=== PATIENT | female | born 1965 | race Caucasian/White ===

== ENCOUNTER 2017-07-02 15:36 | Emergency (ER) | payer MEDICARE, MEDICAID ==
[2017-07-02 15:36] VITALS: BMI 22.8
[2017-07-02 16:11] VITALS: RESP 18; TEMP 97.8; O2SAT 100
[2017-07-02] MEDS ORDERED: Sodium Chloride 0.9% 1,000 ML IV STA (16:20)
--- NOTE | 2017-07-02 16:23 | ED PDOC ---
Arrival/HPI - General Chief Complaint: Abdominal Pain Time Seen by Provider: 07/02/17 15:45 Historian: Patient - History of Present Illness Narrative History of Present Illness (Text): 07/02/17 16:30 pt p/w + 3 days onset of waxing/waning right lower abd pain, at most pain is 8-9 /10; decr appetite, pt states initially the pain was diffuse and gradually became right sided; pt states no fever/chills/sweats, no sob/palpitations/cp, mild nausea, no vomiting, no urinary/bowel changes, no gross bleeding; pt denied fall/trauma/sick contact, no travel; pt denied other complaints pt is here for further eval. PCP: Dr Connors urology: pt has a hx of right kidney stent, currently removed current pain does not resemble right kidney pain Time/Duration: < week (3 days) Symptom Onset: Gradual Symptom Course: Intermittent, Worsening Quality: Tightness, Cramping Severity Level: 8, Severe Activities at Onset: Rest Context: Home Past Medical History - Provider Review Nursing Documentation Reviewed: Yes - Travel History Have you recently traveled outside [place] w/in the past 3 mons?: No - Past History Past History: No Previous - Infectious Disease Hx of Infectious Diseases: None - Cardiac Hx Cardiac Disorders: Yes Hx Hypertension: Yes Other/Comment: metal valve - Pulmonary Hx Respiratory Disorders: No - Neurological Hx Neurological Disorder: No - HEENT Hx HEENT Disorder: No - Renal Hx Renal Disorder: No - Endocrine/Metabolic Hx Endocrine Disorders: Yes Hx Diabetes Mellitus Type 2: Yes - Hematological/Oncological Hx Blood Disorders: No - Integumentary Hx Dermatological Disorder: No - Musculoskeletal/Rheumatological Hx Musculoskeletal Disorders: No - Gastrointestinal Hx Gastrointestinal Disorders: No - Genitourinary/Gynecological Hx Genitourinary Disorders: No - Psychiatric Hx Psychophysiologic Disorder: No Hx Substance Use: No - Surgical History Hx Open Heart Surgery: Yes Other/Comment: metal valve - Anesthesia Hx Anesthesia: Yes Hx Anesthesia Reactions: No Hx Malignant Hyperthermia: No Family/Social History - Physician Review Nursing Documentation Reviewed: Yes Family/Social History: No Known Family HX Smoking Status: Never Smoked Hx Alcohol Use: No Hx Substance Use: No Hx Substance Use Treatment: No Allergies/Home Meds Allergies/Adverse Reactions: Allergies No Known Allergies Allergy (Verified 07/02/17 16:01) Home Medications: Home Meds Medication Instructions Recorded Confirmed Ferrous Sulfate [Feosol] 325 mg PO BID 08/10/15 07/02/17 Furosemide [Lasix] 40 mg PO DAILY 08/10/15 07/02/17 Losartan Potassium [Losartan 100 mg PO DAILY 08/10/15 07/02/17 Potassium] Metoprolol Succinate [Toprol XL] 50 mg PO BID 08/10/15 07/02/17 Multivit,Iron,Min 5/Folic Acid 1 tab PO DAILY 08/10/15 07/02/17 [Strovite Forte Caplet] Potassium Chloride [K-Dur 20 mEq 20 meq PO DAILY 08/10/15 07/02/17 ER Tab] Simvastatin [Zocor] 80 mg PO DAILY 08/10/15 07/02/17 Warfarin [Coumadin] 3 mg PO DAILY 08/10/15 07/02/17 Albuterol HFA [Ventolin HFA 90 2 puff IH PRN PRN 07/02/17 07/02/17 mcg/actuation (8 g)] Omeprazole [Omeprazole] 40 mg PO DAILY 07/02/17 07/02/17 Topiramate [Topamax] 50 mg PO PRN PRN 07/02/17 07/02/17 metFORMIN ER [glucoPHAGE XR] 500 mg PO BID 07/02/17 07/02/17 Review of Systems - Review of Systems Constitutional: Fatigue Eyes: Normal ENT: Normal Respiratory: Normal Cardiovascular: Normal Gastrointestinal: Abdominal Pain, Nausea. absent: Constipation, Diarrhea, Vomiting Genitourinary Female: Normal Musculoskeletal: Normal Skin: Normal Neurological: Normal Endocrine: Normal Hemo/Lymphatic: Normal Psychiatric: Normal Physical Exam Vital Signs Reviewed: Yes Vital Signs Temp Pulse Resp BP Pulse Ox 07/02/17 16:08 97.8 F 71 18 131/65 100 Temperature: Afebrile Blood Pressure: Normal Pulse: Regular Respiratory Rate: Normal Appearance: Positive for: Well-Appearing, Other (uncomfortable, alert/awake, GCS = 15, oriented x 3, cooperative, mild distress due to pain, follows command well) Pain Distress: Mild Mental Status: Positive for: Alert and Oriented X 3 - Systems Exam Head: Present: Atraumatic, Normocephalic Pupils: Present: PERRL, Other (no nystagmus, no photophobia, sclera anicteric) Extroacular Muscles: Present: EOMI Conjunctiva: Present: Normal Ears: Present: Normal Mouth: Present: Moist Mucous Membranes, Normal Teeth Pharnyx: Present: Normal Nose (External): Present: Atraumatic Nose (Internal): Present: Normal Inspection Neck: Present: Normal Range of Motion, Trachea Midline. No: MIDLINE TENDERNESS Respiratory/Chest: Present: Clear to Auscultation, Good Air Exchange Cardiovascular: Present: Regular Rate and Rhythm, Normal S1, S2. No: Murmurs Abdomen: Present: Tenderness, Normal Bowel Sounds, Other (well nourished female , + right lower abd tenderness/+mcburney's point tenderness, no mackey's sign, no masses/rebound/guarding/rigidity; no psoas/obturator sign) Rectal: Present: Occult Blood Back: Present: Normal Inspection. No: CVA Tenderness, Midline Tenderness Upper Extremity: Present: Normal Inspection, Normal ROM, NORMAL PULSES, Neurovascularly Intact, Capillary Refill < 2s Lower Extremity: Present: Normal Inspection, NORMAL PULSES, Neurovascularly Intact Neurological: Present: GCS=15, CN II-XII Intact, Speech Normal Skin: Present: Warm, Normal Color Psychiatric: Present: Alert, Oriented x 3 Medical Decision Making ED Course and Treatment: 07/02/17 16:21 Impression: right abd pain i have consider all the differential diagnosis regarding pt's chief medical complaints/clinical findings, including but are not limited to: right abd pain, r/o appy, ? pna, ? 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 pt will be discharged home 07/02/17 21:24 Re-evaluation Time: 21:20 Reassessment Condition: Improved - Lab Interpretations Lab Results: 07/02/17 16:30 07/02/17 16:30 Lab Results 07/02/17 17:20: Urine Color Yellow, Urine Appearance Clear, Urine pH 7.0, Ur Specific [place] 1.010, Urine Protein Negative, Urine Glucose (UA) Negative, Urine Ketones Negative, Urine Blood Negative, Urine Nitrate Negative, Urine Bilirubin Negative, Urine Urobilinogen 0.2, Ur Leukocyte Esterase Negative 07/02/17 16:30: Sodium 142, Potassium 3.2 L, Chloride 105, Carbon Dioxide 26, Anion Gap 15, BUN 24 H, Creatinine 1.7 H, Est GFR ( Amer) 38, Est GFR ( Non-Af Amer) 31, Random Glucose 137 H, Calcium 9.5, Total Bilirubin 0.3, AST 28 , ALT 37, Alkaline Phosphatase 50, Total Protein 7.2, Albumin 4.0, Globulin 3.1 , Albumin/Globulin Ratio 1.3, Lipase 296 07/02/17 16:30: PT 17.0 H, INR 1.48 H, APTT 75.9 H 07/02/17 16:30: WBC 5.5, RBC 3.91, Hgb 9.9 L, Hct 31.6 L, MCV 80.8, MCH 25.3, MCHC 31.3, RDW 14.6 H, Plt Count 176, MPV 10.7, Gran % 61.3, Lymph % (Auto) 30.6 , [place] % (Auto) 5.7, Eos % (Auto) 2.2, Baso % (Auto) 0.2, Gran # 3.34, Lymph # ( Auto) 1.7, [place] # (Auto) 0.3, Eos # (Auto) 0.1, Baso # (Auto) 0.01 I have reviewed the lab results: Yes Interpretation: Abnormal lab values (mildly elevated CREAT) - RAD Interpretation Narrative RAD Interpretations (Text): 07/02/17 19:15 PROCEDURE: CT Abdomen and Pelvis without Oral or IV contrast. HISTORY: right lower abd pain x 3 days; hx of valve surg COMPARISON: Renal ultrasound performed 06/19/17 TECHNIQUE: Contiguous axial images of the abdomen and pelvis. No oral or IV contrast administered. Coronal and Sagittal reformats generated and reviewed. Radiation dose: Total exam DLP = 1060.24 mGy-cm. This CT exam was performed using one or more of the following dose reduction techniques: Automated exposure control, adjustment of the mA and/or kV according to patient size, and/or use of iterative reconstruction technique. FINDINGS: There is limited evaluation of the solid organs without the administration of IV contrast. LOWER THORAX: Prominent bilateral patchy ground-glass and airspace opacities at the lung bases ; recommend CT of the chest for further evaluation. No visible pleural effusion or pneumothorax. LIVER: Unremarkable unenhanced appearance. GALLBLADDER AND BILE DUCTS: Unremarkable unenhanced appearance. PANCREAS: Unremarkable unenhanced appearance. SPLEEN: 5 mm nonspecific hyperdensity at the inferior right spleen. ADRENALS: Unremarkable unenhanced appearance. KIDNEYS AND URETERS: No hydronephrosis or obstructing renal calculus. BLADDER: The urinary bladder appears unremarkable. REPRODUCTIVE: Uterus is present. Right adnexal soft tissue measuring approximately 4.9 x 5.4 cm may reflect abnormal enlarged right ovary; recommend pelvic ultrasound for further evaluation. APPENDIX: The appendix appears within normal limits of caliber. No secondary signs of acute appendicitis. BOWEL: The stomach is nondistended. Lack of oral contrast limits evaluation for bowel pathology. The bowel loops appear within normal limits of caliber without evidence of intestinal obstruction. PERITONEUM: No significant free fluid. No definite free air. LYMPH NODES: No bulky lymphadenopathy identified. VASCULATURE: No aortic aneurysm. BONES: No acute osseous abnormality is detected. OTHER FINDINGS: None. IMPRESSION: Right adnexal soft tissue measuring approximately 4.9 x 5.4 cm may reflect abnormal enlarged right ovary; recommend pelvic ultrasound for further evaluation. 5 mm nonspecific hyperdensity at the inferior right spleen. Prominent bilateral patchy ground-glass and airspace opacities at the lung bases ; recommend CT of the chest for further evaluation. 07/02/17 21:20 FINDINGS: Uterus: Uterus is anteflexed. Uterus measures approximately 7.5 x 3.7 x 4.5 cm. There is a nabothian cyst in the cervix. The endometrial stripe measures approximate 18 mm in width. Right ovary: Right ovary measures approximately 3.9 x 3.2 x 3.8 cm.There is expected blood flow on Doppler imaging Left ovary: Left ovary measures approximately 3 x 2.8 x 2.3 cm. There is expected blood flow on Doppler imaging Free fluid: There is no free fluid. Bladder: Bladder is almost completely empty. 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 - Medication Orders Current Medication Orders: Sodium Chloride (Sodium Chloride 0.9%) 1,000 mls @ 100 mls/hr IV .Q10H STA Stop: 07/03/17 02:19 Last Admin: 07/02/17 16:39 Dose: 100 mls/hr eMAR Start Stop Document 07/02/17 16:39 GMD (Rec: 07/02/17 16:40 GMD [id number]) Intravenous Solution Start Date 07/02/17 Start Time 16:39 Discontinued Medications Famotidine (Pepcid) 20 mg IVP STAT STA Stop: 07/02/17 16:21 Last Admin: 07/02/17 16:39 Dose: 20 mg IVP Administration Document 07/02/17 16:39 GMD (Rec: 07/02/17 16:39 GMD [id number]) Charges for Administration # of IVP Administrations 1 Morphine Sulfate (Morphine) 4 mg IVP STAT STA Stop: 07/02/17 16:21 Last Admin: 07/02/17 16:44 Dose: Not Given Non-Admin Reason: Patient Refused Morphine Sulfate (Morphine) 4 mg IVP STAT STA Stop: 07/02/17 17:00 Last Admin: 07/02/17 17:01 Dose: Not Given Non-Admin Reason: Patient Refused Potassium Chloride (K-Dur 20 Meq Er Tab) 20 meq PO STAT STA Stop: 07/02/17 20:11 Disposition/Present on Arrival - Present on Arrival Any Indicators Present on Arrival: No History of DVT/PE: No History of Uncontrolled Diabetes: No Urinary Catheter: No History of Decub. Ulcer: No History Surgical Site Infection Following: None - Disposition Have Diagnosis and Disposition been Completed?: Yes Diagnosis: Right sided abdominal pain, Ovarian cyst Disposition: HOME/ ROUTINE Disposition Time: 21:19 Patient Plan: Discharge Condition: STABLE Discharge Instructions (ExitCare): Ovarian Cysts, Acute Pelvic Pain (DC) Print Language: UGANDAN Additional Instructions: Make sure to see your doctor in 1-2 days DRINK PLENTY OF FLUIDS take your medications as prescribed RETURN TO ED IF worse pain, cant breath, persistent vomiting, high fever >101- 102 for hours, altered behavior, unable to urinate, heavy/persistent bleeding, passing out, chest pain, or other medical emergencies Prescriptions: Ondansetron ODT [Zofran ODT] 4 mg PO TID PRN #10 odt PRN Reason: Nausea/Vomiting traMADol [Ultram] 50 mg PO TID PRN #10 tab PRN Reason: Pain, Moderate (4-7) Referrals: Link Connors MD [Primary Care Provider] - Follow up with primary Marie Corona MD [Staff Provider] - Follow up with primary Forms: [employer] ([place]ian)
[2017-07-02] MEDS: Morphine 4 mg/ml ISec IVP STA ×2 (16:39→16:44)
[2017-07-02 16:56] LABS: ALB/GLOB RATIO 1.3 (1.1-1.8); CALCIUM 9.5 mg/dL (8.4-10.5)
[2017-07-02 16:57] LABS: BASO # 0.01 K/mm3 (0.0-2.0); BASO % 0.2 % (0.0-3.0); EOS # 0.1 (0.0-0.7); EOS % 2.2 % (1.5-5.0); GRAN # 3.34 (1.4-6.5); GRAN % 61.3 % (50.0-68.0); HEMOGLOBIN 9.9 g/dL (12.0-16.0); LYMPH # 1.7 (1.2-3.4); LYMPH % 30.6 % (22.0-35.0); MEAN CELL VOLUME 80.8 fl (80.0-105.0); MEAN CORPUSCULAR HEMOGLOBIN 25.3 pg (25.0-35.0); MEAN CORPUSCULAR HGB CONC 31.3 g/dl (31.0-37.0); MEAN PLATELET VOLUME 10.7 fl (7.0-11.0); MONO # 0.3 (0.1-0.6); MONO % 5.7 % (1.0-6.0); RBC 3.91 10^6/uL (3.5-6.1); RED CELL DISTRIBUTION WIDTH 14.6 % (11.5-14.5); WHITE BLOOD COUNT 5.5 10^3/ul (4.5-11.0)
[2017-07-02] MEDS ORDERED: Morphine 4 mg/ml ISec IVP STA (16:59)
[2017-07-02 17:04] LABS: INR 1.48 (0.93-1.08); PARTIAL THROMBOPLASTIN TIME 75.9 Seconds (25.1-36.5)
[2017-07-02 17:38] LABS: URINE BILIRUBIN NEGATIVE (NEGATIVE); URINE BLOOD NEGATIVE (NEGATIVE); URINE GLUCOSE (UA) NEGATIVE (NEGATIVE); URINE LEUKOCYTE ESTERASE NEGATIVE Leu/uL (NEGATIVE); URINE NITRATE NEGATIVE (NEGATIVE); URINE PROTEIN NEGATIVE mg/dL (<30 mg/dL); URINE UROBILINOGEN 0.2 E.U./dL (<1 E.U./dL)
[2017-07-02 17:50] LABS: URINE COLOR YELLOW (YELLOW)
[2017-07-02 17:51] LABS: URINE APPEARANCE CLEAR (CLEAR)
--- NOTE | 2017-07-02 18:45 | CT ---
PROCEDURE: CT Abdomen and Pelvis without Oral or IV contrast. HISTORY: right lower abd pain x 3 days; hx of valve surg COMPARISON: Renal ultrasound performed 06/19/17 TECHNIQUE: Contiguous axial images of the abdomen and pelvis. No oral or IV contrast administered. Coronal and Sagittal reformats generated and reviewed. Radiation dose: Total exam DLP = 1060.24 mGy-cm. This CT exam was performed using one or more of the following dose reduction techniques: Automated exposure control, adjustment of the mA and/or kV according to patient size, and/or use of iterative reconstruction technique. FINDINGS: There is limited evaluation of the solid organs without the administration of IV contrast. LOWER THORAX: Prominent bilateral patchy ground-glass and airspace opacities at the lung bases; recommend CT of the chest for further evaluation. No visible pleural effusion or pneumothorax. LIVER: Unremarkable unenhanced appearance. GALLBLADDER AND BILE DUCTS: Unremarkable unenhanced appearance. PANCREAS: Unremarkable unenhanced appearance. SPLEEN: 5 mm nonspecific hyperdensity at the inferior right spleen. ADRENALS: Unremarkable unenhanced appearance. KIDNEYS AND URETERS: No hydronephrosis or obstructing renal calculus. BLADDER: The urinary bladder appears unremarkable. REPRODUCTIVE: Uterus is present. Right adnexal soft tissue measuring approximately 4.9 x 5.4 cm may reflect abnormal enlarged right ovary; recommend pelvic ultrasound for further evaluation. APPENDIX: The appendix appears within normal limits of caliber. No secondary signs of acute appendicitis. BOWEL: The stomach is nondistended. Lack of oral contrast limits evaluation for bowel pathology. The bowel loops appear within normal limits of caliber without evidence of intestinal obstruction. PERITONEUM: No significant free fluid. No definite free air. LYMPH NODES: No bulky lymphadenopathy identified. VASCULATURE: No aortic aneurysm. BONES: No acute osseous abnormality is detected. OTHER FINDINGS: None. IMPRESSION: Right adnexal soft tissue measuring approximately 4.9 x 5.4 cm may reflect abnormal enlarged right ovary; recommend pelvic ultrasound for further evaluation. 5 mm nonspecific hyperdensity at the inferior right spleen. Prominent bilateral patchy ground-glass and airspace opacities at the lung bases; recommend CT of the chest for further evaluation.
[2017-07-02] MEDS ORDERED: Potassium Chloride 20 mEq ER Tab PO STA (20:10)
[2017-07-02 21:42] VITALS: BP 127/78; PULSE 78
--- NOTE | 2017-07-03 08:04 | RAD ---
HISTORY: weakness COMPARISON: Chest radiographs 05/31/2017. TECHNIQUE: Chest PA and lateral FINDINGS: LUNGS: No active pulmonary disease. PLEURA: No significant pleural effusion identified. No pneumothorax apparent. CARDIOVASCULAR: Cardiac silhouette appears stable. No pulmonary derangement. Prosthetic cardiac valve again evident as well as sternotomy wires. OSSEOUS STRUCTURES: No significant abnormalities. VISUALIZED UPPER ABDOMEN: Normal. OTHER FINDINGS: None. IMPRESSION: No definite acute infiltrate, pleural effusion or pneumothorax. Cardiomediastinal silhouette appears stable.
--- NOTE | 2017-07-03 12:28 | US ---
HISTORY: abnl ct find of right ovary, r/o torsion COMPARISON: Unenhanced abdomen and pelvis CT examination 07/02/2017 TECHNIQUE: Transvaginal and transabdominal pelvic ultrasound technique was utilized in evaluating the pelvic contents. FINDINGS: UTERUS: Measures 7.5 x 3.7 x 4.5 cm. Uterus appears normal in size with mildly inhomogeneous but nonfocal myometrial echotexture appreciated. ENDOMETRIUM: Measures 18.4 mm in diameter. Endometrium is thickened and minimally inhomogeneous in appearance with normal color blood flow seen. There is no fluid collection within the endometrial cavity. CERVIX: Multiple nabothian cysts are identified with the cervix appearing otherwise unremarkable. RIGHT OVARY: Measures 3.8 x 3.1 x 3.9 cm. Sonographically, the right ovary appears unremarkable with no suspicious cyst or solid lesion related. Color Doppler blood flow appears unremarkable. LEFT OVARY: Measures 3.0 x 2.8 x 2.3 cm. No suspicious cyst or solid lesion. Normal blood flow. FREE FLUID: No significant free fluid noted. OTHER FINDINGS: None. IMPRESSION: No suspicious right adnexal finding is appreciated with the mid size of the right ovary upper limits of normal as compared to the suggested 5.4 cm lesion in the right adnexal compartment in the preceding abdomen and pelvis CT examination also performed 06/22/2017. Further clinical correlation of the right lower quadrant is recommended with follow-up CT or MRI with contrast of the pelvis a consideration, particularly if the patient's symptoms persist or worsen. Unremarkable left ovary. 18 mm endometrium, nonfocal.
== END 2017-07-02 21:42 | disposition home or self-care (01) ==
LOC: ED 15:36
DX: R10.31 Right lower quadrant pain (principal); N83.201 Unspecified ovarian cyst, right side; E11.9 Type 2 diabetes mellitus without complications; I10 Essential (primary) hypertension
CPT/HCPCS: 71046; 74176; 76830; 80053; 81003; 83690; 85025; 85610; 85730; 96374; 99285; J7040

== ENCOUNTER 2017-08-31 16:09 | Emergency (ER) | payer MEDICARE, MEDICAID ==
[2017-08-31 16:09] VITALS: BMI 22.8
[2017-08-31] MEDS ORDERED: Oxycodone/Acetaminophen 5/325 mg Tab PO STA (17:18)
--- NOTE | 2017-08-31 17:18 | ED PDOC ---
Arrival/HPI - General Chief Complaint: Finger,Hand,&Wrist Time Seen by Provider: 08/31/17 17:08 Historian: Patient - History of Present Illness Narrative History of Present Illness (Text): 08/31/17 17:10 52 y/o female, post menopausal, pmh including htn/hyperlipidemia/cabg, on coumadin, nkda, c/o rt. hand pain x 2 weeks with no fall or trauma. Pt. stated that she had discomfort on the base of the thumb for the past 2 weeks, no needle stick or laceration for the pasts 6 months. Pt. has no nausea or vomiting, no numbness or tingling, no difficulty moving the rt. hand/wrist, no other medical or psychological complaints. Past Medical History - Provider Review Nursing Documentation Reviewed: Yes - Past History Past History: No Previous - Infectious Disease Hx of Infectious Diseases: None - Cardiac Hx Cardiac Disorders: Yes Hx Hypertension: Yes Other/Comment: metal valve - Pulmonary Hx Respiratory Disorders: No - Neurological Hx Neurological Disorder: No - HEENT Hx HEENT Disorder: No - Renal Hx Renal Disorder: No - Endocrine/Metabolic Hx Endocrine Disorders: Yes Hx Diabetes Mellitus Type 2: Yes - Hematological/Oncological Hx Blood Disorders: No - Integumentary Hx Dermatological Disorder: No - Musculoskeletal/Rheumatological Hx Musculoskeletal Disorders: No - Gastrointestinal Hx Gastrointestinal Disorders: No - Genitourinary/Gynecological Hx Genitourinary Disorders: No - Psychiatric Hx Psychophysiologic Disorder: No Hx Substance Use: No - Surgical History Hx Open Heart Surgery: Yes Other/Comment: metal valve - Anesthesia Hx Anesthesia: Yes Hx Anesthesia Reactions: No Hx Malignant Hyperthermia: No Family/Social History - Physician Review Nursing Documentation Reviewed: Yes Family/Social History: Unknown Family HX Smoking Status: Never Smoked Hx Alcohol Use: No Hx Substance Use: No Hx Substance Use Treatment: No Allergies/Home Meds Allergies/Adverse Reactions: Allergies No Known Allergies Allergy (Verified 07/02/17 16:01) Home Medications: Home Meds Medication Instructions Recorded Confirmed Ferrous Sulfate [Feosol] 325 mg PO BID 08/10/15 07/02/17 Furosemide [Lasix] 40 mg PO DAILY 08/10/15 07/02/17 Losartan Potassium [Losartan 100 mg PO DAILY 08/10/15 07/02/17 Potassium] Metoprolol Succinate [Toprol XL] 50 mg PO BID 08/10/15 07/02/17 Multivit,Iron,Min 5/Folic Acid 1 tab PO DAILY 08/10/15 07/02/17 [Strovite Forte Caplet] Potassium Chloride [K-Dur 20 mEq 20 meq PO DAILY 08/10/15 07/02/17 ER Tab] Simvastatin [Zocor] 80 mg PO DAILY 08/10/15 07/02/17 Warfarin [Coumadin] 3 mg PO DAILY 08/10/15 07/02/17 Albuterol HFA [Ventolin HFA 90 2 puff IH PRN PRN 07/02/17 07/02/17 mcg/actuation (8 g)] Omeprazole [Omeprazole] 40 mg PO DAILY 07/02/17 07/02/17 Topiramate [Topamax] 50 mg PO PRN PRN 07/02/17 07/02/17 metFORMIN ER [glucoPHAGE XR] 500 mg PO BID 07/02/17 07/02/17 Review of Systems - Review of Systems Constitutional: absent: Fatigue, Fevers Eyes: absent: Vision Changes ENT: absent: Hearing Changes Respiratory: absent: SOB, Cough Cardiovascular: absent: Chest Pain Gastrointestinal: absent: Abdominal Pain, Nausea, Vomiting Musculoskeletal: Arthralgias, Myalgias. absent: Back Pain, Neck Pain, Joint Swelling Skin: absent: Rash, Pruritis Neurological: absent: Headache, Dizziness Psychiatric: absent: Anxiety, Depression, Suicidal Ideation Physical Exam Vital Signs Reviewed: Yes Vital Signs Temp Pulse Resp BP Pulse Ox 08/31/17 16:36 98.4 F 74 16 143/84 98 Temperature: Afebrile Blood Pressure: Normal Pulse: Regular Respiratory Rate: Normal Appearance: Positive for: Well-Appearing, Non-Toxic, Comfortable Pain Distress: Moderate Mental Status: Positive for: Alert and Oriented X 3 - Systems Exam Head: Present: Atraumatic, Normocephalic Pupils: Present: PERRL Extroacular Muscles: Present: EOMI Conjunctiva: Present: Normal Mouth: Present: Moist Mucous Membranes Neck: Present: Normal Range of Motion Respiratory/Chest: Present: Clear to Auscultation, Good Air Exchange. No: Respiratory Distress, Accessory Muscle Use Cardiovascular: Present: Regular Rate and Rhythm, Normal S1, S2. No: Murmurs Abdomen: No: Tenderness, Distention, Peritoneal Signs Back: Present: Normal Inspection Upper Extremity: Present: Normal Inspection, Other (Rt. hand/wrist: +ttp on the ventral medial region, no swelling, FROM without limitation, no scaphoid or navicular tenderness, sensation intact, motor 5/5, +radial pulse, capillary refill< 2 seconds, neurovascular intact. ). No: Cyanosis, Edema Lower Extremity: Present: Normal Inspection. No: Edema Neurological: Present: GCS=15, CN II-XII Intact, Speech Normal Skin: Present: Warm, Dry, Normal Color. No: Rashes Psychiatric: Present: Alert, Oriented x 3, Normal Insight, Normal Concentration Medical Decision Making ED Course and Treatment: 08/31/17 17:21 -Rt. hand xry -RUE Venuous doppler -Percocet -Observe and reassess 08/31/17 19:13 -Pain decreased. -RUE Venuous Doppler: as per preliminary report, no acute DVT -Rt. hand xray show no fracture or dislocation but I do see a metallic object under the base of the thumb near medial/dorsum aspect which this is the area she 's complaining about for the past 2 weeks, no history of trauma for the past 6 months on the rt. hand and no needle stick either, no cellulitis and no skin discoloration, no signs of infection. Pt. is on bactrim by her doctor, will give a copy of the xray disc to the patient to take it to the hand surgeon. -Discharge home with a copy of the xray, acetaminophen for the pain, thumb spica splint for the stabilization for the pain control, follow up with your own pmd and hand surgeon within 2 days, return to the ER for any new or worsening signs or symptoms. - RAD Interpretation Radiology Orders: 08/31/17 17:18 HAND RIGHT 3 VIEWS [RAD] Stat DUPLEX UPPER EXTRM VEIN RIGHT [US] Stat RUE Venuous Doppler: No sonographic evidence for deep venous thrombosis in the visualized segments of the right upper extremity. Rt. hand xray: HISTORY: rt. hand thumb base pain x 2 weeks COMPARISON: None. FINDINGS: BONES: No acute fracture or destructive bony lesion identified. JOINTS: Normal. No osteoarthritic changes. SOFT TISSUES: Normal. OTHER FINDINGS: None. IMPRESSION: Unremarkable right hand radiographs. Pinion Sorter: Radiologist - Medication Orders Current Medication Orders: Discontinued Medications Oxycodone/Acetaminophen (Percocet 5/325 Mg Tab) 1 tab PO STAT STA Stop: 08/31/17 17:19 - PA / SOCIAL MEDIA MARKETING SPECIALIST / Resident Statement / has reviewed & agrees with the documentation as recorded. Disposition/Present on Arrival - Present on Arrival Any Indicators Present on Arrival: No History of DVT/PE: No History of Uncontrolled Diabetes: No Urinary Catheter: No History of Decub. Ulcer: No History Surgical Site Infection Following: None - Disposition Have Diagnosis and Disposition been Completed?: Yes Diagnosis: Foreign body of right hand Disposition: HOME/ ROUTINE Disposition Time: 17:22 Patient Plan: Discharge Condition: IMPROVED Additional Instructions: -Discharge home with a copy of the xray, acetaminophen for the pain, thumb spica splint for the stabilization for the pain control, follow up with your own pmd and hand surgeon within 2 days, return to the ER for any new or worsening signs or symptoms. Referrals: Link Connors MD [Primary Care Provider] - Follow up with primary Mt Simon MD [Staff Provider] - Follow up with primary Forms: WORK NOTE
--- NOTE | 2017-08-31 19:06 | US ---
PROCEDURE: Right upper extremity venous US CLINICAL HISTORY: Arm pain and swelling Evaluate for deep venous thrombosis. PHYSICIAN(S): Kin Madrigal M.D FINDINGS: The visualized rightinternal jugular vein is small but otherwise normal and compressible. No evidence of thrombus is seen. The visualized segments of the right subclavian vein are patent with normal waveforms. No sonographic evidence of obstruction or thrombosis is seen. The visualized deep venous system of the proximal right upper extremity is sonographically normal and compressible. IMPRESSION: 1. No sonographic evidence for deep venous thrombosis in the visualized segments of the right upper extremity.
--- NOTE | 2017-08-31 19:06 | RAD ---
PROCEDURE: Right Hand Radiographs. HISTORY: rt. hand thumb base pain x 2 weeks COMPARISON: None. FINDINGS: BONES: No acute fracture or destructive bony lesion identified. JOINTS: Normal. No osteoarthritic changes. SOFT TISSUES: Normal. OTHER FINDINGS: None. IMPRESSION: Unremarkable right hand radiographs.
[2017-09-01 01:41] VITALS: BP 122/76; PULSE 84; RESP 18; TEMP 98.2; O2SAT 99
== END 2017-08-31 20:30 | disposition home or self-care (01) ==
LOC: ED 16:09
DX: S60.551A Superficial foreign body of right hand, initial encounter (principal); X58.XXXA Exposure to other specified factors, initial encounter; Y92.9 Unspecified place or not applicable

== ENCOUNTER 2017-09-27 02:53 | Inpatient (IN) | payer MEDICARE, MEDICAID ==
[2017-09-27 03:05] VITALS: BMI 39.0
[2017-09-27] MEDS ORDERED: Nitroglycerin 2% Ointment Foilpak UD TOP STA (03:17)
[2017-09-27] MEDS ORDERED: Albuterol-Ipratrop 3 mg / 0.5 (3 ml) UD IH STA (03:17)
--- NOTE | 2017-09-27 03:19 | ED PDOC ---
Arrival/HPI - General Chief Complaint: Chest Pain Time Seen by Provider: 09/27/17 03:12 Historian: Patient - History of Present Illness Narrative History of Present Illness (Text): 09/27/17 03:15 Christal Robb is a 52 year old female, whose past medical history includes hypertension, hyperlipidemia, diabetes, and valve replacement on Coumadin, who presents to the Emergency department complaining of chest pain. 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 Patient denies any fever, chills, nausea, vomiting, diarrhea, urinary symptoms, back pain, neck pain, headache, dizziness, or any other complaints. PMD: Dr. Connors Time/Duration: 1-3 hours (2 hours) Symptom Onset: Gradual Symptom Course: Unchanged Quality: Pressure Activities at Onset: Light Context: Home Past Medical History - Provider Review Nursing Documentation Reviewed: Yes - Past History Past History: No Previous - Infectious Disease Hx of Infectious Diseases: None - Reproductive Menopause: Yes - Cardiac Hx Cardiac Disorders: Yes Hx Hypertension: Yes Other/Comment: metal valve - Pulmonary Hx Respiratory Disorders: No Hx Asthma: Yes - Neurological Hx Neurological Disorder: No - HEENT Hx HEENT Disorder: No - Renal Hx Renal Disorder: No - Endocrine/Metabolic Hx Endocrine Disorders: Yes Hx Diabetes Mellitus Type 2: Yes - Hematological/Oncological Hx Blood Disorders: No - Integumentary Hx Dermatological Disorder: No - Musculoskeletal/Rheumatological Hx Musculoskeletal Disorders: No - Gastrointestinal Hx Gastrointestinal Disorders: No - Genitourinary/Gynecological Hx Genitourinary Disorders: No - Psychiatric Hx Psychophysiologic Disorder: No Hx Substance Use: No - Surgical History Hx Open Heart Surgery: Yes (aortic valve 2009) Other/Comment: metal valve - Anesthesia Hx Anesthesia: Yes Hx Anesthesia Reactions: No Hx Malignant Hyperthermia: No Family/Social History - Physician Review Nursing Documentation Reviewed: Yes Family/Social History: Unknown Family HX Smoking Status: Never Smoked Hx Alcohol Use: No Hx Substance Use: No Hx Substance Use Treatment: No Allergies/Home Meds Allergies/Adverse Reactions: Allergies No Known Allergies Allergy (Verified 09/27/17 03:05) Home Medications: Home Meds Medication Instructions Recorded Confirmed Ferrous Sulfate [Feosol] 325 mg PO BID 08/10/15 09/27/17 Furosemide [Lasix] 40 mg PO DAILY 08/10/15 09/27/17 Losartan Potassium [Losartan 50 mg PO DAILY 08/10/15 09/27/17 Potassium] Metoprolol Succinate [Toprol XL] 50 mg PO BID 08/10/15 09/27/17 Potassium Chloride [K-Dur 20 mEq 20 meq PO DAILY 08/10/15 09/27/17 ER Tab] Simvastatin [Zocor] 80 mg PO DAILY 08/10/15 09/27/17 Warfarin [Coumadin] 3 mg PO DAILY 08/10/15 09/27/17 Omeprazole [Omeprazole] 40 mg PO DAILY 07/02/17 09/27/17 metFORMIN ER [glucoPHAGE XR] 500 mg PO BID 07/02/17 09/27/17 Calcitriol 0.25 mcg PO DAILY 09/27/17 09/27/17 Donepezil [Aricept] 5 mg PO HS 09/27/17 09/27/17 sulfADIAZINE [Sulfadiazine] 500 mg PO BID 09/27/17 09/27/17 Review of Systems - Physician Review All systems were reviewed & negative as marked: Yes - Review of Systems Constitutional: Normal. absent: Fevers Eyes: Normal ENT: Normal Respiratory: SOB. absent: Cough Cardiovascular: Chest Pain Gastrointestinal: Normal. absent: Abdominal Pain, Diarrhea, Nausea, Vomiting Genitourinary Female: Normal. absent: Dysuria, Frequency, Hematuria, Urine Output Changes Musculoskeletal: Normal. absent: Back Pain, Neck Pain Skin: Normal. absent: Rash Neurological: Normal. absent: Headache, Dizziness Endocrine: Normal Hemo/Lymphatic: Normal Psychiatric: Normal Physical Exam Vital Signs Reviewed: Yes Vital Signs Temp Pulse Resp BP Pulse Ox 09/27/17 03:31 94 H 131/71 09/27/17 03:15 113/41 L 09/27/17 03:05 97.7 F 86 20 92 L Temperature: Afebrile Blood Pressure: Normal Pulse: Regular Respiratory Rate: Normal Appearance: Positive for: Well-Appearing, Non-Toxic, Comfortable Pain Distress: None Mental Status: Positive for: Alert and Oriented X 3 - Systems Exam Head: Present: Atraumatic, Normocephalic Pupils: Present: PERRL Extroacular Muscles: Present: EOMI Conjunctiva: Present: Normal Mouth: Present: Moist Mucous Membranes Neck: Present: Normal Range of Motion Respiratory/Chest: Present: Wheezes (Wheezing bilaterally). No: Respiratory Distress, Accessory Muscle Use Cardiovascular: Present: Regular Rate and Rhythm, Normal S1, S2. No: Murmurs Abdomen: No: Tenderness, Distention, Peritoneal Signs Back: Present: Normal Inspection Upper Extremity: Present: Normal Inspection. No: Cyanosis, Edema Lower Extremity: Present: Normal Inspection. No: Edema Neurological: Present: GCS=15, CN II-XII Intact, Speech Normal Skin: Present: Warm, Dry, Normal Color. No: Rashes Psychiatric: Present: Alert, Oriented x 3, Normal Insight, Normal Concentration Medical Decision Making ED Course and Treatment: 09/27/17 03:15 Impression: 52 year old female complaining of mid-sternal tightness and shortness of breath. Plan: -- EKG -- Chest X-ray -- Labs, cardiac enzymes, BNP -- Aspirin -- Duoneb -- Lopressor -- Nitroglycerin -- Reassess and disposition Progress Notes: Reviewed EKG, NSR at 94 bpm. Anterior infarct. Inferolateral ST/T wave changes. 09/27/17 04:10 Chest X-ray reviewed, consistent with CHF. 09/27/17 04:42 Case discussed with medical insurance coder utilization management rn, who is aware and agrees with plan. Case discussed with Dr. Gabriel, who is aware and agrees with plan. Pt will be admitted to Telemetry for acute coronary syndrome and CHF under the hospitalist service. - Critical Care Critical Care Minutes: 30 minutes - Lab Interpretations Lab Results: 09/27/17 03:15 Lab Results 09/27/17 03:15: WBC 8.0 D, RBC 4.31, Hgb 10.7 L, Hct 33.5 L, MCV 77.7 L D, MCH 24.8 L, MCHC 31.9, RDW 14.9 H, Plt Count 192, MPV 12.1 H 09/27/17 03:15: Lactate Dehydrogenase 971 H, Total Creatine Kinase 154, Troponin I 0.98 H*, NT-Pro-B Natriuret Pep 38869 H 09/27/17 03:15: PT 30.0 H, INR 2.58 H, APTT 50.5 H I have reviewed the lab results: Yes - RAD Interpretation Radiology Orders: 09/27/17 03:19 CHEST PORTABLE [RAD] Stat Manager Intern: ED Physician - EKG Interpretation Interpreted by ED Physician: Yes Type: 12 lead EKG - Medication Orders Current Medication Orders: Heparin Sodium/Sodium Chloride (Heparin 74305 Units/250ml 1/2 Normal Saline) 25 ,000 units in 250 mls @ 10.886 mls/hr IV .[id number] HASEEB; 12 UNITS/KG/HR PRN Reason: Protocol Discontinued Medications Albuterol/Ipratropium (Duoneb 3 Mg/0.5 Mg (3 Ml) Ud) 3 ml IH ONCE STA Stop: 09/27/17 03:18 Last Admin: 09/27/17 03:31 Dose: 3 ml Aspirin (Aspirin) 325 mg PO ONCE STA Stop: 09/27/17 03:18 Last Admin: 09/27/17 03:32 Dose: 325 mg Atorvastatin Calcium (Lipitor) 40 mg PO STAT STA Stop: 09/27/17 04:59 Furosemide (Lasix) 40 mg IVP ONCE ONE Stop: 09/27/17 04:39 Metoprolol Tartrate (Lopressor) 25 mg PO ONCE STA Stop: 09/27/17 03:18 Last Admin: 09/27/17 03:31 Dose: 25 mg MAR Pulse and Blood Pressure Document 09/27/17 03:31 IT (Rec: 09/27/17 03:31 IT [id number]) Pulse Pulse Rate (60-90 beats/min) 94 Blood Pressure Blood Pressure (100/60-150/90 mm Hg) 131/71 Nitroglycerin (Nitro-Bid 2% Oint) 1 ea TOP ONCE STA Stop: 09/27/17 03:18 Last Admin: 09/27/17 03:31 Dose: 1 ea - Scribe Statement The provider has reviewed the documentation as recorded by the Nicky Blas Provider Scribe Attestation: All medical record entries made by the Scribliza were at my direction and personally dictated by me. I have reviewed the chart and agree that the record accurately reflects my personal performance of the history, physical exam, medical decision making, and the department course for this patient. I have also personally directed, reviewed, and agree with the discharge instructions and disposition. Disposition/Present on Arrival - Present on Arrival Any Indicators Present on Arrival: No History of DVT/PE: No History of Uncontrolled Diabetes: No Urinary Catheter: No History of Decub. Ulcer: No History Surgical Site Infection Following: None - Disposition Have Diagnosis and Disposition been Completed?: Yes Diagnosis: Acute coronary syndrome, CHF (congestive heart failure) Disposition: HOSPITALIZED Disposition Time: 04:53 Patient Plan: Admission Patient Problems: Current Active Problems Problem Status Onset Acute coronary syndrome Acute CHF (congestive heart failure) Acute Condition: STABLE
[2017-09-27 03:38] LABS: HEMOGLOBIN 10.7 g/dL (12.0-16.0); MEAN CORPUSCULAR HEMOGLOBIN 24.8 pg (25.0-35.0); MEAN CORPUSCULAR HGB CONC 31.9 g/dl (31.0-37.0); MEAN PLATELET VOLUME 12.1 fl (7.0-11.0); RBC 4.31 10^6/uL (3.5-6.1); RED CELL DISTRIBUTION WIDTH 14.9 % (11.5-14.5)
[2017-09-27 03:43] LABS: MEAN CELL VOLUME 77.7 fl (80.0-105.0)
[2017-09-27 03:44] LABS: INR 2.58 (0.93-1.08); PARTIAL THROMBOPLASTIN TIME 50.5 Seconds (25.1-36.5)
[2017-09-27 04:36] LABS: TROPONIN I 0.98 ng/mL
[2017-09-27] MEDS ORDERED: Heparin25000 units/250ml 1/2NS 25,000 UNITS/250 ML BAG IV SCH (05:00)
[2017-09-27 05:55] LABS: ALB/GLOB RATIO 1.3 (1.1-1.8); ALBUMIN 4.1 g/dL (3.0-4.8); CALCIUM 9.2 mg/dL (8.4-10.5)
--- NOTE | 2017-09-27 06:07 | CP.PCM.HP ---
<Brook Wild - Last Filed: 09/27/17 06:28> History of Present Illness - History of Present Illness History of Present Illness: PGY-2 H&P for hospitalist service 52 year old female with past medical history of hypertension, hyperlipidemia, diabetes, and valve replacement on Coumadin, who presents to the Emergency department complaining of chest tighnessand sob. Patient is primarily Telugu speaking, medical device engineer was used, [id number]. Patient states that last night she had a headache and took aleve. She states that she became dizziness and fell in her bed. She denies any trauma to her head. Per patient and , she was not responding to stimuli for about 15-20 minutes. Patient states that when she woke up she vomiting once and was experiencing mid-sternal chest tightness with associated shortness of breath. Patient denies any previous episodes. She states that she has never had sob before. About 8-9 years ago patient had cardiac valve replacement surgery, she does not recall the type of valve used. Her steamer tender is Dr. Puir, she last saw about 1 month ago. Patient denies any fever, chills, nausea, diarrhea, urinary symptoms, back pain, neck pain, headache, dizziness, or any other complaints. PMH: hypertension, hyperlipidemia, diabetes psh: valve replacement on Coumadin Social history: denies smoking, alcohol use, illicit drug use family history: father- heart disease PMD: Dr. Connors Cardology: Dr. Puri manager market intelligence: Dr. Blanco Present on Admission - Present on Admission Any Indicators Present on Admission: No Review of Systems - Review of Systems All systems: reviewed and no additional remarkable complaints except Past Patient History - Infectious Disease Hx of Infectious Diseases: None - Past Social History Smoking Status: Never Smoked - CARDIAC Hx Cardiac Disorders: Yes Hx Hypertension: Yes Other/Comment: metal valve - PULMONARY Hx Respiratory Disorders: No Hx Asthma: Yes - NEUROLOGICAL Hx Neurological Disorder: No - HEENT Hx HEENT Problems: No - RENAL Hx Chronic Kidney Disease: No - ENDOCRINE/METABOLIC Hx Endocrine Disorders: Yes Hx Diabetes Mellitus Type 2: Yes - HEMATOLOGICAL/ONCOLOGICAL Hx Blood Disorders: No - INTEGUMENTARY Hx Dermatological Problems: No - MUSCULOSKELETAL/RHEUMATOLOGICAL Hx Musculoskeletal Disorders: No - GASTROINTESTINAL Hx Gastrointestinal Disorders: No - GENITOURINARY/GYNECOLOGICAL Hx Genitourinary Disorders: No - PSYCHIATRIC Hx Psychophysiologic Disorder: No Hx Substance Use: No - SURGICAL HISTORY Hx Open Heart Surgery: Yes (aortic valve 2009) Other/Comment: metal valve - ANESTHESIA Hx Anesthesia: Yes Hx Anesthesia Reactions: No Hx Malignant Hyperthermia: No Meds Allergies/Adverse Reactions: Allergies Allergy/AdvReac Type Severity Reaction Status Date / Time No Known Allergies Allergy Verified 09/27/17 03:05 Physical Exam - Constitutional Appears: No Acute Distress - Head Exam Head Exam: ATRAUMATIC, NORMAL INSPECTION, NORMOCEPHALIC - Eye Exam Eye Exam: EOMI, Normal appearance - ENT Exam ENT Exam: Mucous Membranes Moist - Respiratory Exam Respiratory Exam: Rhonchi, NORMAL BREATHING PATTERN. absent: Decreased Breath Sounds, Rales, Wheezes, Respiratory Distress - Cardiovascular Exam Cardiovascular Exam: REGULAR RHYTHM, +S1, +S2. absent: Bradycardia, Tachycardia , Diastolic murmur, Systolic Murmur - GI/Abdominal Exam GI & Abdominal Exam: Normal Bowel Sounds, Soft. absent: Diminished Bowel Sounds , Distended, Firm, Guarding, Hernia, Tenderness - Extremities Exam Extremities exam: Positive for: normal inspection. Negative for: pedal edema, tenderness - Neurological Exam Neurological exam: Alert, Oriented x3 - Psychiatric Exam Psychiatric exam: Normal Affect, Normal Mood - Skin Skin Exam: Dry, Intact, Normal Color, Warm Results - Vital Signs Recent Vital Signs: Last Vital Signs Temp 97.7 F 09/27/17 03:05 Pulse 94 H 09/27/17 03:31 Resp 20 09/27/17 03:05 BP 129/73 09/27/17 05:39 Pulse Ox 92 L 09/27/17 03:05 - Labs Result Diagrams: 09/27/17 03:15 09/27/17 05:30 Labs: Laboratory Results - last 24 hr 09/27/17 09/27/17 09/27/17 03:15 03:15 03:15 WBC 8.0 D RBC 4.31 Hgb 10.7 L Hct 33.5 L MCV 77.7 L D MCH 24.8 L MCHC 31.9 RDW 14.9 H Plt Count 192 MPV 12.1 H PT 30.0 H INR 2.58 H APTT 50.5 H Sodium Potassium Chloride Carbon Dioxide Anion Gap BUN Creatinine Est GFR ( Amer) Est GFR (Non-Af Amer) Random Glucose Calcium Total Bilirubin AST ALT Alkaline Phosphatase Lactate Dehydrogenase 971 H Total Creatine Kinase 154 Troponin I 0.98 H* NT-Pro-B Natriuret Pep 51258 H Total Protein Albumin Globulin Albumin/Globulin Ratio 09/27/17 05:30 WBC RBC Hgb Hct MCV MCH MCHC RDW Plt Count MPV PT INR APTT Sodium 141 Potassium 3.9 Chloride 99 Carbon Dioxide 27 Anion Gap 19 BUN 39 H Creatinine 1.7 H Est GFR ( Amer) 38 Est GFR (Non-Af Amer) 31 Random Glucose 143 H Calcium 9.2 Total Bilirubin 0.5 AST 45 H D ALT 45 Alkaline Phosphatase 58 Lactate Dehydrogenase Total Creatine Kinase Troponin I NT-Pro-B Natriuret Pep Total Protein 7.3 Albumin 4.1 Globulin 3.2 Albumin/Globulin Ratio 1.3 Assessment & Plan - Assessment and Plan (Free Text) Assessment: 52 year old female with past medical history of hypertension, hyperlipidemia, diabetes, and valve replacement on Coumadin, who presents with NSTEMI and elevated creatinine. Plan: NSTEMI - elevated trops and pBNP - patient given lasix in ED, as well as nitroglycerin, asa, 1 dose of atrovastatin - trend trops - Lipid panel, TSH - consider echo - heparin drip - restart home metoprolol, statin therapy - kennedy cath for strict I&O - cardio, Dr. Puri ARLEN - elevated cr and bun - hold losartan - strict I&O - consider nephrology consult with Dr. Blanco h/o HTN - BP stable currently - cont metoprolol - hold losartan due to arlen - continue to monitor h/o HLD - continue statin - lipid panel DM - hold metformin - lispro- isss- low - finger sticks achs - consider Hgba1c <Nery,Oscar Q - Last Filed: 09/27/17 07:02> Results - Vital Signs Recent Vital Signs: Last Vital Signs Temp 97.7 F 09/27/17 03:05 Pulse 76 09/27/17 06:44 Resp 18 09/27/17 06:44 BP 129/63 09/27/17 06:44 Pulse Ox 96 09/27/17 06:44 - Labs Result Diagrams: 09/27/17 03:15 09/27/17 05:30 Labs: Laboratory Results - last 24 hr 09/27/17 05:30 Sodium 141 Potassium 3.9 Chloride 99 Carbon Dioxide 27 Anion Gap 19 BUN 39 H Creatinine 1.7 H Est GFR ( Amer) 38 Est GFR (Non-Af Amer) 31 Random Glucose 143 H Calcium 9.2 Total Bilirubin 0.5 AST 45 H D ALT 45 Alkaline Phosphatase 58 Total Protein 7.3 Albumin 4.1 Globulin 3.2 Albumin/Globulin Ratio 1.3 Attending/Attestation - Attestation I have personally seen and examined this patient.: Yes I have fully participated in the care of the patient.: Yes I have reviewed all pertinent clinical information: Yes Notes (Text): 09/27/17 06:57 I agree with the above mentioned note and exam by the resident with the addition /exception of the followin52 y/o female with a PMHx Htn, mechanical valve replacement (?mitral), DM presented to the ED with the c/o midsternal chest tightness along with an episode of nausea and vomiting. Patient also stated she developed shortness of breath which was not present earlier tonight. She is found to have an NSTEMI with ST depressions in I, II, V4-6 and acute heart failure likely secondary to her NSTEMI. She is currently therapeutic in terms of anticoagulation for her mitral valve, however she was started on TAC for her NSTEMI and may need a cardiac cath, however she also has CKD stage3. Cardiology consult placed with Dr. Puri with whom the patient states she follows with as an outpatient. Patient also continued on beta blockade, atorvastatin, given IV Lasix in the ED for diuresis as well, with improvement in her shortness of breath.
[2017-09-27 07:41] LABS: HDL CHOLESTEROL 49 mg/dL (29-60)
[2017-09-27 07:54] LABS: LDL CHOLESTEROL 72 mg/dL (0-129)
--- NOTE | 2017-09-27 07:54 | RAD ---
HISTORY: chest pain COMPARISON: 07/02/2017 FINDINGS: LUNGS: There is severe vascular congestion and interstitial edema PLEURA: No significant pleural effusion identified, no pneumothorax apparent. CARDIOVASCULAR: Mild cardiomegaly OSSEOUS STRUCTURES: No significant abnormalities. VISUALIZED UPPER ABDOMEN: Normal. OTHER FINDINGS: None. IMPRESSION: Mild cardiomegaly with severe vascular congestion and interstitial edema
[2017-09-27 08:37] LABS: TROPONIN I 2.01 ng/mL
[2017-09-27] MEDS: Insulin Lispro (humaLOG) LOW Coverage SC SCH ×4 (08:59→21:22)
[2017-09-27] MEDS ORDERED: Metoprolol Succinate 50 mg XL Tab PO SCH (10:00)
--- NOTE | 2017-09-27 13:24 | CARD ---
APPROVED REPORT EKG Measurement Heart [id number] <Conclusion> Normal sinus rhythm Possible Left atrial enlargement Anterior infarct, age undetermined Marked ST abnormality, possible inferolateral subendocardial injury Abnormal ECG
--- NOTE | 2017-09-27 14:49 | CT ---
PROCEDURE: CT HEAD WITHOUT CONTRAST. HISTORY: Prolonged LOC COMPARISON: None available. TECHNIQUE: Axial computed tomography images were obtained through the head/brain without intravenous contrast. Radiation dose: Total exam DLP = 903.79 mGy-cm. This CT exam was performed using one or more of the following dose reduction techniques: Automated exposure control, adjustment of the mA and/or kV according to patient size, and/or use of iterative reconstruction technique. FINDINGS: HEMORRHAGE: No intracranial hemorrhage. BRAIN: Normal reyes-white matter differentiation and density are appreciated throughout the cerebrum and cerebellum with the brainstem appearing unremarkable as well. There is no mass effect. There is no suspicious extra-axial fluid collection and the midline brain anatomy appears diffusely unremarkable. VENTRICLES: Unremarkable. No hydrocephalus. CALVARIUM: Unremarkable. PARANASAL SINUSES: Unremarkable as visualized. No significant inflammatory changes. MASTOID AIR CELLS: Unremarkable as visualized. No inflammatory changes. OTHER FINDINGS: None. IMPRESSION: Unremarkable unenhanced CT of the Head.
--- NOTE | 2017-09-27 14:52 | RAD ---
HISTORY: CHF COMPARISON: 07/28/2017 TECHNIQUE: Chest PA and lateral FINDINGS: LUNGS: Lung volumes lower limits of normal. Central pulmonary venous congestion suggested. -less than before. PLEURA: No significant pleural effusion identified. No pneumothorax apparent. CARDIOVASCULAR: Mild cardiomegaly. Midline sternotomy. Valvular prosthesis -similar appearing OSSEOUS STRUCTURES: Thoracic spondylosis. VISUALIZED UPPER ABDOMEN: Normal. OTHER FINDINGS: None. IMPRESSION: The prior pulmonary venous congestion is less than before. Similar cardiomegaly and postop changes.
[2017-09-27 15:39] LABS: INR 3.35 (0.93-1.08); PROTHROMBIN TIME 39.1 SECONDS (9.4-12.5)
[2017-09-27 15:41] LABS: PARTIAL THROMBOPLASTIN TIME 112.6 Seconds (25.1-36.5)
[2017-09-27 16:31] LABS: TROPONIN I 3.1 ng/mL
[2017-09-27] MEDS: Metoprolol Succinate 25 mg XL Tab PO SCH (18:06)
[2017-09-27] MEDS ORDERED: Pneumococcal 23-Valent Vaccine IM ONE (18:53)
--- NOTE | 2017-09-27 19:23 | CON ---
DATE: 09/27/2017 REASON FOR CONSULTATION: Cardiac evaluation, acute coronary syndrome, history of MVR 9 years ago. BRIEF CLINICAL HISTORY: This is a 52-year-old obese female with past medical history of hypertension, hyperlipidemia, diabetes, status post AVR came to the emergency room with complaint of chest tightness, shortness of breath. She has had two episodes of chest pain, came to the emergency room. Denies any chest pain now. Also, complained of dyspnea on exertion, which had increased. Also, the patient has a baseline renal insufficiency. PAST MEDICAL HISTORY: Significant for hypertension, hyperlipidemia, diabetes, history of Aortic valve replacement, on Coumadin. SOCIAL HISTORY: Denies smoking. Denies any history of alcohol abuse. FAMILY HISTORY: Father has heart problem. CURRENT MEDICATIONS: The patient is taking at home Aricept 5 mg, p.o. calcitriol, Sudafed, metoprolol, losartan, furosemide, Coumadin, simvastatin, potassium, omeprazole, and metformin. REVIEW OF SYSTEMS: As per HPI. PHYSICAL EXAMINATION VITAL SIGNS: As follows: Temperature afebrile, heart rate 76, blood pressure . HEENT: PERRLA. Extraocular muscles intact. NECK: Supple. No carotid bruit or thyromegaly. CHEST: Clear to auscultation. HEART: S1 and S2, regular. ABDOMEN: Soft. EXTREMITIES: Clubbing and cyanosis negative. LABORATORY DATA: Blood workup as follows: WBC 8, hemoglobin 10.3, hematocrit 33.5, platelet count 192. Chemistry shows sodium 141, potassium 3.9, chloride 90, carbon dioxide 27, anion gap of 19, BUN 39, creatinine 1.7. Troponin 0.98. EKG shows normal sinus, significant ST-T changes, depression in inferolateral lead. IMPRESSION: Acute coronary syndrome, unstable angina, diabetes, hypertension, hyperlipidemia, history of valve replacement, INR therapeutic 2.58. RECOMMENDATIONS: We will give vitamin K, continue heparin, waited INR get 1.5 or below, cardiac catheterization, possible angioplasty. We will load with Plavix 300 mg and Ecotrin 325 mg followed by,plavix 75 mg po daily and aspirin 81 mg daily. Continue heparin till tomorrow at 10 :00am, Possible cardiac catheterization tomorrow afternoon, discussed with the . Though the patient is on Aricept, but no evidence of dementia. Patient's says that she takes Aricept to sleep at night. The patient is well known to me from office and mentally alert and awake and gives all the history. We will wait information from [facility] and from office to get more information of the patient from office chart. [facility] C[facility] office says pt had Mechanical AVR [phone] with Aortic Root dilatation with Shield graft on 05/19/2009. Romel Puri MD MTDRema
[2017-09-28 06:38] LABS: BASO # 0.02 K/mm3 (0.0-2.0); BASO % 0.3 % (0.0-3.0); EOS # 0.4 (0.0-0.7); EOS % 4.6 % (1.5-5.0); GRAN # 5.56 (1.4-6.5); GRAN % 73.3 % (50.0-68.0); HEMOGLOBIN 9.9 g/dL (12.0-16.0); LYMPH # 1.3 (1.2-3.4); LYMPH % 17.5 % (22.0-35.0); MEAN CELL VOLUME 78.2 fl (80.0-105.0); MEAN CORPUSCULAR HEMOGLOBIN 25.1 pg (25.0-35.0); MEAN PLATELET VOLUME 11.6 fl (7.0-11.0); MONO # 0.3 (0.1-0.6); MONO % 4.3 % (1.0-6.0); RBC 3.95 10^6/uL (3.5-6.1); RED CELL DISTRIBUTION WIDTH 14.9 % (11.5-14.5); WHITE BLOOD COUNT 7.6 10^3/ul (4.5-11.0)
[2017-09-28 07:15] LABS: ALB/GLOB RATIO 1.2 (1.1-1.8); ALBUMIN 3.7 g/dL (3.0-4.8); CALCIUM 8.6 mg/dL (8.4-10.5)
[2017-09-28] MEDS: Insulin Lispro (humaLOG) LOW Coverage SC SCH ×3 (08:12→18:00)
[2017-09-28] MEDS: Potassium Chloride 20 mEq ER Tab PO ONE ×2 (08:14→14:26)
[2017-09-28 08:17] LABS: INR 1.48 (0.93-1.08); PROTHROMBIN TIME 17.1 SECONDS (9.4-12.5)
[2017-09-28] MEDS ORDERED: Sodium Chloride 0.9% 1,000 ML IV SCH (09:00)
[2017-09-28] MEDS: Metoprolol Succinate 25 mg XL Tab PO SCH (10:45)
[2017-09-28] MEDS: Potassium Chloride 40 mEq/30 ml LIQ UD PO SCH ×2 (10:52→12:00)
[2017-09-28] MEDS ORDERED: Metoprolol Succinate 25 mg XL Tab PO SCH (11:24)
--- NOTE | 2017-09-28 11:28 | CP.PCM.PN ---
<Francisco Rodriguez - Last Filed: 09/28/17 11:25> Subjective - Date & Time of Evaluation Date of Evaluation: 09/28/17 Time of Evaluation: 11:25 - Subjective Subjective: Patient seen and examined at bedside. Complaining of increased work of breathing. Denies any chest pain, fevers, chills, diaphoresis, nausea, vomiting. Explained reasons why patient will need to be transferred to cardiac cath as patient is on aricpet and there is increased risk of heart block and arrhythmias with patient taking this medication. Family at bedside. All questions answered. Objective - Vital Signs/Intake and Output Vital Signs (last 24 hours): Temp Pulse Resp BP Pulse Ox 98.4 F 97 H 18 163/80 H 96 09/28/17 06:00 09/28/17 10:45 09/28/17 06:00 09/28/17 10:49 09/28/17 06:00 Intake and Output: 09/28/17 09/28/17 06:59 18:59 Intake Total 80 Output Total 1000 Balance -920 - Medications Medications: Current Medications Aspirin (Ecotrin) 81 mg PO DAILY [facility] Last Admin: 09/27/17 10:51 Dose: Not Given Atorvastatin Calcium (Lipitor) 40 mg PO DIN [facility] Last Admin: 09/27/17 18:03 Dose: 40 mg Calcitriol (Rocaltrol) 0.25 mcg PO DAILY [facility] Last Admin: 09/28/17 10:51 Dose: 0.25 mcg Clopidogrel Bisulfate (Plavix) 75 mg PO DAILY [facility] Last Admin: 09/28/17 10:45 Dose: 75 mg Donepezil HCl (Aricept) 5 mg PO HS [facility] Furosemide (Lasix) 40 mg IV DAILY [facility] Last Admin: 09/28/17 10:49 Dose: 40 mg Sodium Chloride (Sodium Chloride 0.9%) 1,000 mls @ 50 mls/hr IV .Q20H [facility] Stop: 09/28/17 23:59 Insulin Human Lispro (Humalog Low) 0 units SC ACHS [facility] PRN Reason: Protocol Last Admin: 09/28/17 08:12 Dose: Not Given Metoprolol Succinate (Toprol Xl) 50 mg PO BID [facility] Potassium Chloride (Potassium Chloride Oral Soln) 40 meq PO Q3H [facility] Stop: 09/28/17 11:31 Last Admin: 09/28/17 10:52 Dose: Not Given - Labs Labs: 09/28/17 05:30 09/28/17 05:30 PT 17.1 SECONDS (9.4-12.5) H 09/28/17 05:30 INR 1.48 (0.93-1.08) H 09/28/17 05:30 APTT 72.5 Seconds (25.1-36.5) H 09/28/17 05:30 - Constitutional Appears: Well - Head Exam Head Exam: ATRAUMATIC, NORMAL INSPECTION, NORMOCEPHALIC - Eye Exam Eye Exam: EOMI, Normal appearance, PERRL Pupil Exam: NORMAL ACCOMODATION, PERRL - ENT Exam ENT Exam: Mucous Membranes Moist, Normal Exam - Neck Exam Neck Exam: Full ROM, Normal Inspection. absent: Lymphadenopathy - Respiratory Exam Respiratory Exam: Rhonchi (bibasilar crackles), NORMAL BREATHING PATTERN - Cardiovascular Exam Cardiovascular Exam: REGULAR RHYTHM, +S1, +S2. absent: Murmur - GI/Abdominal Exam GI & Abdominal Exam: Soft, Normal Bowel Sounds. absent: Distended, Tenderness - Extremities Exam Extremities Exam: Full ROM, Normal Capillary Refill, Normal Inspection. absent : Joint Swelling, Pedal Edema - Back Exam Back Exam: NORMAL INSPECTION - Neurological Exam Neurological Exam: Alert, Awake, CN II-XII Intact, Normal Gait, Oriented x3 - Psychiatric Exam Psychiatric exam: Normal Affect, Normal Mood - Skin Skin Exam: Dry, Intact, Normal Color, Warm Assessment and Plan (1) NSTEMI (non-ST elevated myocardial infarction) Assessment & Plan: Cardio (Jaxson) Cardiac cath will take place at [facility] as patient is on aircept and increased risk of complications during cardiac cath with patients taking this medication ASA 81 QD Plavix 75 PO QD Metoprolol 50 PO BID Lipitor 40 PO HS Status: Acute (2) CHF (congestive heart failure) Assessment & Plan: ASA 81 QD Plavix 75 QD Lipitor 40 PO QD Lisinopril 5 PO QD Lasix 40 IV QD F/U Echo Status: Chronic (3) Aortic valve replaced Assessment & Plan: Patient takes warfarin at home D/c and started on heparin drip as patient is awaiting cardiac cath Status: Chronic (4) Prophylactic measure Assessment & Plan: heparin drip scd no GI PPX iondicated at this time Status: Acute <Romel Sigala - Last Filed: 09/29/17 13:40> Objective - Vital Signs/Intake and Output Vital Signs (last 24 hours): Temp Pulse Resp BP Pulse Ox 98 F 96 H 18 93/62 L 95 09/29/17 11:32 09/29/17 11:32 09/29/17 11:32 09/29/17 11:32 09/29/17 06:00 Intake and Output: 09/29/17 09/29/17 06:59 18:59 Intake Total 130 Output Total 250 Balance -120 - Medications Medications: Current Medications Aspirin (Ecotrin) 81 mg PO DAILY [facility] Last Admin: 09/29/17 10:16 Dose: 81 mg Atorvastatin Calcium (Lipitor) 40 mg PO DIN [facility] Last Admin: 09/28/17 18:03 Dose: 40 mg Calcitriol (Rocaltrol) 0.25 mcg PO DAILY [facility] Last Admin: 09/29/17 10:16 Dose: 0.25 mcg Clopidogrel Bisulfate (Plavix) 75 mg PO DAILY [facility] Last Admin: 09/29/17 10:15 Dose: 75 mg Donepezil HCl (Aricept) 5 mg PO HS [facility] Last Admin: 09/28/17 22:19 Dose: 5 mg Furosemide (Lasix) 40 mg IVP DAILY [facility] Heparin Sodium/Sodium Chloride (Heparin 41578 Units/250ml 1/2 Normal Saline) 25 ,000 units in 250 mls @ 10.668 mls/hr IV .[id number]; 12 UNITS/KG/HR PRN Reason: Protocol Stop: 10/01/17 04:00 Last Admin: 09/29/17 11:15 Dose: Not Given Insulin Human Lispro (Humalog Low) 0 units SC ACHS [facility] PRN Reason: Protocol Last Admin: 09/29/17 11:58 Dose: Not Given Lisinopril (Zestril) 5 mg PO DAILY [facility] Last Admin: 09/29/17 10:09 Dose: Not Given Metoprolol Succinate (Toprol Xl) 25 mg PO BID [facility] Last Admin: 09/29/17 10:08 Dose: Not Given Oxycodone/Acetaminophen (Percocet 2.5/325 Mg Tab) 1 tab PO Q6H PRN PRN Reason: Pain, Mild (1-3) - Labs Labs: 09/29/17 07:30 09/29/17 07:30 PT 17.1 SECONDS (9.4-12.5) H 09/28/17 05:30 INR 1.48 (0.93-1.08) H 09/28/17 05:30 APTT 80.7 Seconds (25.1-36.5) H 09/29/17 07:30 Attending/Attestation - Attestation I have personally seen and examined this patient.: Yes I have fully participated in the care of the patient.: Yes I have reviewed all pertinent clinical information, including history, physical exam and plan: Yes Notes (Text): 09/29/17 13:34 Medical record note made by the resident after discussion with my direction and input after the patient was personally seen and examined by me. I have reviewed the chart and agree that the record accurately reflects by personal performance of the history, physical exam, data review, and medical decision-making, in the course for the patient. I have also personally directed the plan of care. 52 year old female with past medical history of hypertension, hyperlipidemia, diabetes, and valve replacement on Coumadin, was admitted with of chest tighness and sob.She is fund to have NSEMI, maximum troponin 3.01 and CHF exacerbation.She is pain free today, on IV heparin,ASA,Plavix, statin, Metoprolol, and lisinopril.Dyspnea is improved.Patient chronic is stable 1.8, we will monitor. Case was discussed with cardiology .Patient is for transfer to [facility] on Sunday for cardiac catherization. Management plan was discussed in detail with patient and family .Education was provided. 09/29/17 13:37
--- NOTE | 2017-09-28 13:44 | PN ---
DATE: 09/28/2017 REASON FOR CONSULTATION AND FOLLOWUP: Cardiac evaluation, acute coronary artery syndrome, history of aortic valve replacement 8 to 9 years ago at [facility] and came in with unstable angina, non-ST segment myocardial infarction, acute coronary artery syndrome, on heparin, off Coumadin. SUBJECTIVE: The patient denies any chest pain. Feels still heaviness on the chest. Getting IV heparin. PHYSICAL EXAMINATION: VITAL SIGNS: As follows: Temperature afebrile, heart rate 91, blood pressure 100/53. HEENT: PERRLA, intact. NECK: Supple. No carotid bruit or thyromegaly. CHEST: Clear to auscultation. HEART: S1 and S2 regular. ABDOMEN: Soft. EXTREMITIES: Clubbing and cyanosis negative. LABORATORY DATA: Blood workup: WBC 7.6, hemoglobin 9.9, hematocrit 30.9 and platelet count 173. Chemistry shows sodium , potassium 3.3, chloride 101, carbon dioxide 30, anion gap of 15, BUN 34 and creatinine 1.8. IMPRESSION: History of chronic renal insufficiency, acute coronary artery syndrome, maximum troponin 3.1, non-ST segment myocardial infarction, electrocardiogram shows lateral ischemia, history of aortic mechanical valve replacement in 05/19/2009 with aortic root enlargement at [facility], admitted yesterday with [id number] myocardial infarction. RECOMMENDATION: Continue heparin until 10 p.m. Wait for PT/INR. Yesterday, 5 mg vitamin K was given. Supplement potassium. N.p.o. for cardiac catheterization. Continue aspirin and Plavix. Further recommendation after the cardiac catheterization. We will start low dose of hydration, because of renal insufficiency. Romel Puri MD
--- NOTE | 2017-09-28 17:37 | CARD ---
APPROVED REPORT EXAM: Two-dimensional and M-mode echocardiogram with Doppler and color Doppler. INDICATION Chest Pain 2D DIMENSIONS Left Atrium (2D)3.6 (1.6-4.0cm)IVSd1.4 (0.7-1.1cm) LVDd4.3 (3.9-5.9cm)PWd1.5 (0.7-1.1cm) LVDs3.3 (2.5-4.0cm)FS (%) 22.9 % LVEF (%)46.3 (>50%) Aortic Valve AoV Peak Qxtqwmvu179.0cm/Fabiola Peak GR.119mmHg Mitral Valve MV E Ziwtucqe515.0cm/sMV A Lslypwyp55.9cm/sE/A ratio1.5 TDI E/Lateral E'0.0E/Medial E'0.0 Tricuspid Valve TR Peak Xxyxuzzv021ag/sRAP [id number] Peak Gr.38mmHg [id number] LEFT VENTRICLE The left ventricle is normal size. There is mild concentric left ventricular hypertrophy. The systolic function is mildly impaired.EF-45 -50% There is normal LV segmental wall motion. Transmitral Doppler flow pattern is Grade II-pseudonormal filling dynamics. No left ventricle thrombus noted on this study. There is no ventricular septal defect visualized. There is no left ventricular aneurysm. There is no mass noted in the left ventricle. RIGHT VENTRICLE The right ventricle is normal size. There is normal right ventricular wall thickness. The right ventricular systolic function is normal. ATRIA The left atrium is mildly dilated. The right atrium size is normal. The interatrial septum is intact with no evidence for an atrial septal defect. AORTIC VALVE S/p Mechanical AVR not well visulazied MITRAL VALVE The mitral valve is thickened but opens well. Mitral annular calcification is mild to moderate. Mitral regurgitation is moderate. There is no mitral valve stenosis. There is no evidence of mitral valve prolapse. TRICUSPID VALVE The tricuspid valve leaflets are thickened , but open well. There is mild to moderate tricuspid regurgitation.RVSP-48 mmof hg. There is no tricuspid valve stenosis. There is no tricuspid valve prolapse or vegetation. PULMONIC VALVE The pulmonic valve is mildly thickened. There is trace to mild pulmonic valvular regurgitation. GREAT VESSELS The aortic root is normal in size. The ascending aorta is normal in size. The pulmonary artery is normal. The IVC was not visualized. PERICARDIAL EFFUSION There is no pleural effusion. There is no pericardial effusion. <Conclusion> The left ventricle is normal size. There is mild concentric left ventricular hypertrophy. The systolic function is mildly impaired.EF-45 -50% S/p Mechanical AVR not well visulazied Mitral regurgitation is moderate. There is mild to moderate tricuspid regurgitation.RVSP-48 mmof hg. There is trace to mild pulmonic valvular regurgitation. The IVC was not visualized. There is no pericardial effusion. No thrombus noted.
[2017-09-28] MEDS: Heparin25000 units/250ml 1/2NS 25,000 UNITS/250 ML BAG IV SCH (17:57)
[2017-09-29] MEDS: Insulin Lispro (humaLOG) LOW Coverage SC SCH ×4 (07:50→22:00)
[2017-09-29 08:10] LABS: BASO # 0.02 K/mm3 (0.0-2.0); BASO % 0.3 % (0.0-3.0); EOS # 0.3 (0.0-0.7); EOS % 5.6 % (1.5-5.0); GRAN # 3.91 (1.4-6.5); GRAN % 64.9 % (50.0-68.0); HEMOGLOBIN 9.8 g/dL (12.0-16.0); LYMPH # 1.4 (1.2-3.4); LYMPH % 23.1 % (22.0-35.0); MEAN CELL VOLUME 78.5 fl (80.0-105.0); MEAN CORPUSCULAR HEMOGLOBIN 24.3 pg (25.0-35.0); MEAN CORPUSCULAR HGB CONC 30.9 g/dl (31.0-37.0); MEAN PLATELET VOLUME 11.3 fl (7.0-11.0); MONO # 0.4 (0.1-0.6); MONO % 6.1 % (1.0-6.0); RBC 4.04 10^6/uL (3.5-6.1)
[2017-09-29 08:24] LABS: ALB/GLOB RATIO 1.2 (1.1-1.8); ALBUMIN 3.6 g/dL (3.0-4.8); CALCIUM 8.3 mg/dL (8.4-10.5)
[2017-09-29] MEDS: Metoprolol Succinate 25 mg XL Tab PO SCH ×2 (10:08→17:23)
[2017-09-29] MEDS: Heparin25000 units/250ml 1/2NS 25,000 UNITS/250 ML BAG IV SCH (11:15)
[2017-09-29] MEDS ORDERED: Oxycodone/Acetaminophen 2.5/325 mg Tab PO STA (11:41)
[2017-09-29] MEDS ORDERED: Oxycodone/Acetaminophen 2.5/325 mg Tab PO PRN (11:42)
--- NOTE | 2017-09-29 11:48 | CP.PCM.PN ---
<Jorge Willson - Last Filed: 09/29/17 11:52> Subjective - Date & Time of Evaluation Date of Evaluation: 09/29/17 Time of Evaluation: 09:15 - Subjective Subjective: Hospitalist Service Patient seen and examined at bedside. Patient reports having chest pain. Patient denies dyspnea, palpitations, nausea, vomiting, or diarrhea. Nurse reports no events overnight. Objective - Vital Signs/Intake and Output Vital Signs (last 24 hours): Temp Pulse Resp BP Pulse Ox 98 F 96 H 18 93/62 L 95 09/29/17 11:32 09/29/17 11:32 09/29/17 11:32 09/29/17 11:32 09/29/17 06:00 Intake and Output: 09/29/17 09/29/17 06:59 18:59 Intake Total 130 Output Total 250 Balance -120 - Medications Medications: Current Medications Aspirin (Ecotrin) 81 mg PO DAILY [facility] Last Admin: 09/29/17 10:16 Dose: 81 mg Atorvastatin Calcium (Lipitor) 40 mg PO DIN [facility] Last Admin: 09/28/17 18:03 Dose: 40 mg Calcitriol (Rocaltrol) 0.25 mcg PO DAILY [facility] Last Admin: 09/29/17 10:16 Dose: 0.25 mcg Clopidogrel Bisulfate (Plavix) 75 mg PO DAILY [facility] Last Admin: 09/29/17 10:15 Dose: 75 mg Donepezil HCl (Aricept) 5 mg PO HS [facility] Last Admin: 09/28/17 22:19 Dose: 5 mg Furosemide (Lasix) 40 mg IVP DAILY [facility] Heparin Sodium/Sodium Chloride (Heparin 37221 Units/250ml 1/2 Normal Saline) 25 ,000 units in 250 mls @ 10.668 mls/hr IV .[id number] [facility]; 12 UNITS/KG/HR PRN Reason: Protocol Stop: 10/01/17 04:00 Last Admin: 09/28/17 17:57 Dose: 4.16 units/kg/hr, 3.7 mls/hr Insulin Human Lispro (Humalog Low) 0 units SC ACHS [facility] PRN Reason: Protocol Last Admin: 09/29/17 07:50 Dose: Not Given Lisinopril (Zestril) 5 mg PO DAILY [facility] Last Admin: 09/29/17 10:09 Dose: Not Given Metoprolol Succinate (Toprol Xl) 25 mg PO BID [facility] Last Admin: 09/29/17 10:08 Dose: Not Given Oxycodone/Acetaminophen (Percocet 2.5/325 Mg Tab) 1 tab PO Q6H PRN PRN Reason: Pain, Mild (1-3) - Labs Labs: 09/29/17 07:30 09/29/17 07:30 PT 17.1 SECONDS (9.4-12.5) H 09/28/17 05:30 INR 1.48 (0.93-1.08) H 09/28/17 05:30 APTT 80.7 Seconds (25.1-36.5) H 09/29/17 07:30 - Constitutional Appears: Non-toxic - Head Exam Head Exam: ATRAUMATIC, NORMOCEPHALIC - Eye Exam Eye Exam: EOMI, Normal appearance - ENT Exam ENT Exam: Mucous Membranes Dry - Neck Exam Neck Exam: Normal Inspection - Respiratory Exam Respiratory Exam: Clear to Ausculation Bilateral, NORMAL BREATHING PATTERN. absent: Accessory Muscle Use - Cardiovascular Exam Cardiovascular Exam: RRR, +S1, +S2 - GI/Abdominal Exam GI & Abdominal Exam: Soft, Normal Bowel Sounds. absent: Guarding, Rigid - Extremities Exam Extremities Exam: Normal Inspection. absent: Calf Tenderness - Back Exam Back Exam: NORMAL INSPECTION. absent: CVA tenderness (L), CVA tenderness (R) - Neurological Exam Neurological Exam: Alert, Awake, Oriented x3 - Psychiatric Exam Psychiatric exam: Normal Affect, Normal Mood - Skin Skin Exam: Dry, Intact, Normal Color, Warm Assessment and Plan - Assessment and Plan (Free Text) Assessment: Assessment and Plan (1) NSTEMI (non-ST elevated myocardial infarction) Assessment & Plan: Cardio (Jaxson) Cardiac cath will take place at [facility] as patient is on aricept and increased risk of complications during cardiac cath with patients taking this medication ASA 81 QD Plavix 75 PO QD Metoprolol 50 PO BID Lipitor 40 PO HS Status: Acute (2) CHF (congestive heart failure) Assessment & Plan: ASA 81 QD Plavix 75 QD Lipitor 40 PO QD Lisinopril 5 PO QD Lasix 40 IV QD Echocardiogram shows LV is normal size, mild concentric LVH; systolic function is mildly impaired; LVEF 45-50%; s/p mechanical Aortic valve replacement not well visualized, and has high peak velocity and peak gradient 119 mmHg; suggest GAETANO after PTCA, Mitral regurgitation is moderate; Mild to moderate tricuspid regurgitation-RVSP 48 mmHg; Trace to mild pulmonic valvular regurgitation; no thrombus noted. Status: Chronic (3) Aortic valve replaced Assessment & Plan: Patient takes warfarin at home D/c and started on heparin drip as patient is awaiting cardiac cath Status: Chronic (4) Prophylactic measure Assessment & Plan: heparin drip scd no GI PPX indicated at this time Status: Acute 5) ARLEN on CKD Creatinine 1.7-2.1 Will continue to monitor and avoid nephrotoxins <Romel Sigala - Last Filed: 09/29/17 13:44> Objective - Vital Signs/Intake and Output Vital Signs (last 24 hours): Temp Pulse Resp BP Pulse Ox 98 F 96 H 18 93/62 L 95 09/29/17 11:32 09/29/17 11:32 09/29/17 11:32 09/29/17 11:32 09/29/17 06:00 Intake and Output: 09/29/17 09/29/17 06:59 18:59 Intake Total 130 Output Total 250 Balance -120 - Medications Medications: Current Medications Aspirin (Ecotrin) 81 mg PO DAILY [facility] Last Admin: 09/29/17 10:16 Dose: 81 mg Atorvastatin Calcium (Lipitor) 40 mg PO DIN [facility] Last Admin: 09/28/17 18:03 Dose: 40 mg Calcitriol (Rocaltrol) 0.25 mcg PO DAILY [facility] Last Admin: 09/29/17 10:16 Dose: 0.25 mcg Clopidogrel Bisulfate (Plavix) 75 mg PO DAILY [facility] Last Admin: 09/29/17 10:15 Dose: 75 mg Donepezil HCl (Aricept) 5 mg PO HS [facility] Last Admin: 09/28/17 22:19 Dose: 5 mg Furosemide (Lasix) 40 mg IVP DAILY [facility] Heparin Sodium/Sodium Chloride (Heparin 81432 Units/250ml 1/2 Normal Saline) 25 ,000 units in 250 mls @ 10.668 mls/hr IV .[id number] [facility]; 12 UNITS/KG/HR PRN Reason: Protocol Stop: 10/01/17 04:00 Last Admin: 09/29/17 11:15 Dose: Not Given Insulin Human Lispro (Humalog Low) 0 units SC ACHS [facility] PRN Reason: Protocol Last Admin: 09/29/17 11:58 Dose: Not Given Lisinopril (Zestril) 5 mg PO DAILY [facility] Last Admin: 09/29/17 10:09 Dose: Not Given Metoprolol Succinate (Toprol Xl) 25 mg PO BID [facility] Last Admin: 09/29/17 10:08 Dose: Not Given Oxycodone/Acetaminophen (Percocet 2.5/325 Mg Tab) 1 tab PO Q6H PRN PRN Reason: Pain, Mild (1-3) - Labs Labs: 09/29/17 07:30 09/29/17 07:30 PT 17.1 SECONDS (9.4-12.5) H 09/28/17 05:30 INR 1.48 (0.93-1.08) H 09/28/17 05:30 APTT 80.7 Seconds (25.1-36.5) H 09/29/17 07:30 Attending/Attestation - Attestation I have personally seen and examined this patient.: Yes I have fully participated in the care of the patient.: Yes I have reviewed all pertinent clinical information, including history, physical exam and plan: Yes Notes (Text): 09/29/17 13:40 Medical record note made by the resident after discussion with my direction and input after the patient was personally seen and examined by me. I have reviewed the chart and agree that the record accurately reflects by personal performance of the history, physical exam, data review, and medical decision-making, in the course for the patient. I have also personally directed the plan of care. 52 year old female with past medical history of hypertension, hyperlipidemia, diabetes, and valve replacement on Coumadin, was admitted with of chest tighness and sob.She is fund to have NSEMI, maximum troponin 3.01 and CHF exacerbation.She is pain free today, on IV heparin,ASA,Plavix, statin, Metoprolol, and lisinopril.Dyspnea has improved with diuresis. Patient blood pressure is running low today, she denies any headache, dizziness or chest pain, we will hold lisinopril, will decrease dose of metoprolol to 25 , with holding parameter, we will monitor. Creatinin has worsened today, will hold lisinopril, will get UA, urine electrolye, urea, will repeat chest X ray and will Nephrology consult.
--- NOTE | 2017-09-29 12:25 | PN ---
DATE: 09/29/2017 CARDIOLOGY FOLLOWUP COVERING FOR: Romel Puri MD. SUBJECTIVE: The patient complains of chest discomfort only when she presses on her chest. She is free of chest pain, otherwise. PHYSICAL EXAMINATION: VITAL SIGNS: Blood pressure is 93/62, heart rates in the 80s. NECK: Negative JVD. LUNGS: Without rales. HEART: Reveals S1, S2. EXTREMITIES: Without edema. LABORATORY DATA: Hemoglobin is 9.8. Chemistries, BUN and creatinine are 43 and 2.1. IMPRESSION: 1. Diffuse pain and anxiety. 2. No evidence for active cardiac issues. 3. Esd-GG-[id number] myocardial infarction. 4. Diabetes mellitus. 5. Renal insufficiency. PLAN: Given these findings, the patient is for transfer to [facility] on Sunday for cardiac catheterization. We will start the patient on low-dose Percocet. Kin Paulson MD
--- NOTE | 2017-09-29 14:33 | RAD ---
HISTORY: Congestive heart failure. COMPARISON: 09/27/2017. FINDINGS: LUNGS: Stable pulmonary vascular congestion. PLEURA: No significant pleural effusion identified, no pneumothorax apparent. CARDIOVASCULAR: Cardiomegaly. Sternotomy changes. Aortic valve prosthesis is documented. OSSEOUS STRUCTURES: No significant abnormalities. VISUALIZED UPPER ABDOMEN: Normal. OTHER FINDINGS: None. IMPRESSION: Stable CHF.
[2017-09-29] MEDS ORDERED: Albuterol-Ipratrop 3 mg / 0.5 (3 ml) UD IH STA (17:54)
[2017-09-29] MEDS ORDERED: Morphine 2 mg/ml ISec IVP STA (18:13)
[2017-09-29] MEDS ORDERED: Morphine 4 mg/ml ISec IVP STA (18:18)
[2017-09-29 18:55] LABS: HEMOGLOBIN 12.1 g/dL (12.0-16.0); MEAN CELL VOLUME 79.8 fl (80.0-105.0); MEAN CORPUSCULAR HEMOGLOBIN 25.2 pg (25.0-35.0); MEAN CORPUSCULAR HGB CONC 31.5 g/dl (31.0-37.0); MEAN PLATELET VOLUME 11.4 fl (7.0-11.0); RBC 4.81 10^6/uL (3.5-6.1); RED CELL DISTRIBUTION WIDTH 15.3 % (11.5-14.5); WHITE BLOOD COUNT 13.2 10^3/ul (4.5-11.0)
--- NOTE | 2017-09-29 19:07 | PCM.RRT ---
<Donte Scanlon - Last Filed: 09/29/17 19:04> MEDICAL CODING INSTRUCTOR Nurse Assessment - Situation Date: 09/29/17 Time MEDICAL CODING INSTRUCTOR was called: 18:11 MEDICAL CODING INSTRUCTOR Responder Arrival Time: 18:11 MEDICAL CODING INSTRUCTOR Location:: [address] [place] [address] Room Number: [id number] MEDICAL CODING INSTRUCTOR Reason for Call: Chest Pain, O2 Saturation below 90% MEDICAL CODING INSTRUCTOR Called By: Physician - IV IV Inserted during MEDICAL CODING INSTRUCTOR?: No - Respiratory Oxygen Delivery Method: BiPAP @%, Non Rebreather @% Received Nebulizer Treatments:: No Was the Patient Ventilated with Bag/Mask 100% O2?: No Secretions Suctioned?: No Was the Patient Intubated?: No Was the Patient Placed on a Ventilator?: No - Medication Medications Administered During MEDICAL CODING INSTRUCTOR: 18:11 lasix 40mg IV push. 1814 Morphine 1mg IV push - Diagnostic Test Ordered EKG: Yes Chest X-Ray: No CT Scan: No - Stat Labs Ordered MEDICAL CODING INSTRUCTOR Stat Labs Ordered: CBC, TROPONIN, ABG MEDICAL CODING INSTRUCTOR Other Labs Ordered: CMP CPR started during MEDICAL CODING INSTRUCTOR?: No - Vital Signs Vital Sign: Rapid Response Vital Sign Blood Pressure 113/73 Pulse Rate 122 Respiratory Rate 26 Temperature 97.6 F Oxygen Saturation 88 - Finger Stick Blood Glucose Finger Stick Blood Glucose: 169 - Time MEDICAL CODING INSTRUCTOR Ended Time MEDICAL CODING INSTRUCTOR Ended: 18:23 - Vital Signs at end of MEDICAL CODING INSTRUCTOR Vital Signs at end of MEDICAL CODING INSTRUCTOR: Rapid Response End Vital Sign Blood Pressure 132/82 Pulse Rate 125 Respiratory Rate 26 Temperature 97.6 F - Recommendations Notifications: Attending Physician, Family or Designated Caregiver I.Reason for MEDICAL CODING INSTRUCTOR - A) Acute Change in Patient: (Select all that apply): Staff member or family is worried about patient - Neurological Status (Select all that apply): Alert, Responsive, Oriented, Verbal, Follows Commands, Lethargic - Respiratory Oxygen Delivery Method: BiPAP @%, Non Rebreather @% - Constitutional Appears: In Acute Distress (labored breathing complaining of severe chest pressure) - Head Head Exam: ATRAUMATIC, NORMOCEPHALIC - Eyes Eye Exam: EOMI, Normal appearance, PERRL - Respiratory Exam Respiratory Exam: Accessory Muscle Use, Decreased Breath Sounds, Rales, Respiratory Distress. absent: Clear to Ausculation Bilateral, Rhonchi, Wheezes , NORMAL BREATHING PATTERN (tachypnea) - Cardiovascular Exam Cardiovascular Exam: Tachycardia (~125bpm sinus), +S1, +S2 - GI/Abdominal Exam GI & Abdominal Exam: Soft, Normal Bowel Sounds. absent: Distended, Firm, Guarding, Rigid, Tenderness - Neurological Exam Neurological Exam: Alert, Awake, CN II-XII Intact, Oriented x3 Plan - Assessment of Findings&Treatment Plan Patient was complaining of severe mid-sternal chest pressure and having difficulty breathing. Patient was visibly having difficulty breathing while on a NC. She was tachy at 125 on tele. She was switched to a non-rebreather mask. No change in breathing. ICU was called. Orders: Lasix 60mg IVP Morphine 1mg IVP CBC CMP ABG CARIN - trop still down-trending to 1.07 EKG - sinus tach - unchanged from previous ekg BiPAP Dr. Magallon came to evaluate patient. Accepted patient for ICU transfer. Patient was placed on BiPAP and transferred down to ICU. Patient's breathing improved drastically while on BiPAP. The patient's shortness of breath and chest pressure is believed to be secondary to pulmonary edema. Patient will be monitored in ICU overnight. <Romel Sigala - Last Filed: 09/30/17 11:45> MEDICAL CODING INSTRUCTOR Nurse Assessment - Vital Signs Vital Sign: Rapid Response Vital Sign Blood Pressure 113/73 Pulse Rate 122 Respiratory Rate 26 Temperature 97.6 F Oxygen Saturation 88 - Vital Signs at end of MEDICAL CODING INSTRUCTOR Vital Signs at end of MEDICAL CODING INSTRUCTOR: Rapid Response End Vital Sign Blood Pressure 132/82 Pulse Rate 125 Respiratory Rate 26 Temperature 97.6 F Attending/Attestation - Attestation I have personally seen and examined this patient.: Yes I have fully participated in the care of the patient.: Yes I have reviewed all pertinent clinical information, including history, physical exam and plan: Yes Notes (Text): 09/30/17 11:42 Patient was seen and examined in the rapid response. Patient went to respiratory distress due to Pulmonary edema. Patient was given LASIX 80 MG and has been started on BIPAP. EKG and chest X ray is reviewed. Lasix is changed to 40 IV BID,and patient has been transferred to ICU. We will follow up troponin level. 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
--- NOTE | 2017-09-29 19:12 | CP.PCM.CON ---
<Sheron Santoro - Last Filed: 09/30/17 05:41> History of Present Illness - History of Present Illness History of Present Illness: ICU Consult note for Dr. Fletcher 52yo female PMHx HTN, HLD, DM, valve replacement on coumadin presented to [facility] ED with SOB. Patient was found to have NSTEMI and admitted to TELE. She was started on heparin gtt and cardiology Dr. Puri was on board. Patient was due to be transferred to [facility] for a cardiac cath on 10/01 as per cardio reccs however she had an HOGSHEAD LINER called 09/29 as patient was complaining of severe mid-sternal chest pressure and having difficulty breathing. Patient was tachycardic 125 on tele and on non-rebreather she continued to complain of SOB. ICU was consulted and patient was deemed candidate for transfer. She was placed on BiPAP, given lasix 60mg ivp and breathing status improved. Patient SOB and chest pressure likely secondary to pulmonary edema. Patient to be further monitored in CCU. PMHx: hypertension, hyperlipidemia, diabetes PSurgHx: valve replacement on Coumadin SocHx: denies smoking, alcohol use, illicit drug use FamHx: father- heart disease PMD: Dr. Connors Cardology: Dr. Puri Grinder Set Up Operator Centerless: Dr. Blanco Review of Systems - Review of Systems Systems not reviewed;Unavailable: Acuity of Condition Past Patient History - Infectious Disease Hx of Infectious Diseases: None - Past Social History Smoking Status: Never Smoked - CARDIAC Hx Cardiac Disorders: Yes Hx Congestive Heart Failure: Yes (09-27-17) Hx Hypercholesterolemia: Yes Hx Hypertension: Yes Hx Peripheral Edema: Yes Other/Comment: metal valve-AVR - PULMONARY Hx Respiratory Disorders: Yes Hx Asthma: Yes - NEUROLOGICAL Hx Neurological Disorder: Yes Hx Dizziness: Yes (09-27-17) - HEENT Hx HEENT Problems: Yes (BILATERAL EYE SURGERY) - RENAL Hx Chronic Kidney Disease: No - ENDOCRINE/METABOLIC Hx Endocrine Disorders: Yes Hx Diabetes Mellitus Type 2: Yes - HEMATOLOGICAL/ONCOLOGICAL Hx Blood Disorders: No - INTEGUMENTARY Hx Dermatological Problems: No - MUSCULOSKELETAL/RHEUMATOLOGICAL Hx Musculoskeletal Disorders: No Hx Falls: Yes (09-27-17) - GASTROINTESTINAL Hx Gastrointestinal Disorders: No - GENITOURINARY/GYNECOLOGICAL Hx Genitourinary Disorders: Yes (REMOVED CYST IN THE OVARY-R) - PSYCHIATRIC Hx Psychophysiologic Disorder: No Hx Substance Use: No - SURGICAL HISTORY Hx Surgeries: Yes (OVARIAN CYST REMOVED-R) Hx Open Heart Surgery: Yes (aortic valve 2009) Other/Comment: metal valve - ANESTHESIA Hx Anesthesia: Yes Hx Anesthesia Reactions: No Hx Malignant Hyperthermia: No Meds Allergies/Adverse Reactions: Allergies Allergy/AdvReac Type Severity Reaction Status Date / Time No Known Allergies Allergy Verified 09/27/17 12:01 - Medications Medications: Current Medications Aspirin (Ecotrin) 81 mg PO DAILY [facility] Last Admin: 09/29/17 10:16 Dose: 81 mg Atorvastatin Calcium (Lipitor) 40 mg PO DIN [facility] Last Admin: 09/29/17 17:09 Dose: 40 mg Calcitriol (Rocaltrol) 0.25 mcg PO DAILY [facility] Last Admin: 09/29/17 10:16 Dose: 0.25 mcg Clopidogrel Bisulfate (Plavix) 75 mg PO DAILY [facility] Last Admin: 09/29/17 10:15 Dose: 75 mg Donepezil HCl (Aricept) 5 mg PO HS [facility] Last Admin: 09/28/17 22:19 Dose: 5 mg Furosemide (Lasix) 40 mg IVP BID [facility] Heparin Sodium/Sodium Chloride (Heparin 12148 Units/250ml 1/2 Normal Saline) 25 ,000 units in 250 mls @ 10.668 mls/hr IV .[id number] [facility]; 12 UNITS/KG/HR PRN Reason: Protocol Stop: 10/01/17 04:00 Last Admin: 09/29/17 11:15 Dose: Not Given Insulin Human Lispro (Humalog Low) 0 units SC ACHS [facility] PRN Reason: Protocol Last Admin: 09/29/17 17:09 Dose: 1 units Lisinopril (Zestril) 5 mg PO DAILY [facility] Last Admin: 09/29/17 10:09 Dose: Not Given Metoprolol Succinate (Toprol Xl) 25 mg PO BID [facility] Last Admin: 09/29/17 17:23 Dose: Not Given Oxycodone/Acetaminophen (Percocet 2.5/325 Mg Tab) 1 tab PO Q6H PRN PRN Reason: Pain, Mild (1-3) Physical Exam - Constitutional Appears: In Acute Distress - Head Exam Head Exam: ATRAUMATIC, NORMAL INSPECTION, NORMOCEPHALIC - Eye Exam Eye Exam: Normal appearance. absent: Conjunctival injection, Scleral icterus - ENT Exam ENT Exam: Mucous Membranes Moist - Respiratory Exam Respiratory Exam: Accessory Muscle Use, Rales (b/l), Respiratory Distress. absent: NORMAL BREATHING PATTERN Additional comments: respiratory status improved on BiPAP - Cardiovascular Exam Cardiovascular Exam: Tachycardia, +S1, +S2 - GI/Abdominal Exam GI & Abdominal Exam: Soft. absent: Tenderness - Rectal Exam Rectal Exam: Deferred - Extremities Exam Extremities exam: Positive for: normal capillary refill, normal inspection, pedal pulses present. Negative for: pedal edema - Neurological Exam Neurological exam: Alert, Oriented x3 - Psychiatric Exam Psychiatric exam: Anxious - Skin Skin Exam: Dry, Intact Results - Vital Signs Recent Vital Signs: Last Vital Signs Temp 98 F 09/29/17 17:17 Pulse 125 H 09/29/17 18:00 Resp 16 09/29/17 17:17 BP 95/64 L 09/29/17 17:23 Pulse Ox 98 09/29/17 17:17 - Labs Result Diagrams: 09/29/17 18:40 09/29/17 18:12 Labs: Laboratory Results - last 24 hr 09/28/17 09/29/17 09/29/17 21:46 07:30 07:30 WBC 6.0 D RBC 4.04 Hgb 9.8 L Hct 31.7 L MCV 78.5 L MCH 24.3 L MCHC 30.9 L RDW 15.0 H Plt Count 191 MPV 11.3 H Gran % 64.9 Lymph % (Auto) 23.1 [place] % (Auto) 6.1 H Eos % (Auto) 5.6 H Baso % (Auto) 0.3 Gran # 3.91 Lymph # (Auto) 1.4 [place] # (Auto) 0.4 Eos # (Auto) 0.3 Baso # (Auto) 0.02 APTT 80.8 H Sodium 143 Potassium 3.7 Chloride 101 Carbon Dioxide 31 Anion Gap 15 BUN 43 H Creatinine 2.1 H Est GFR ( Amer) 30 Est GFR (Non-Af Amer) 25 Random Glucose 108 Calcium 8.3 L Total Bilirubin 0.7 AST 34 ALT 38 Alkaline Phosphatase 54 Total Creatine Kinase Total Protein 6.5 Albumin 3.6 Globulin 3.0 Albumin/Globulin Ratio 1.2 25-OH Vitamin D Total 09/29/17 09/29/17 09/29/17 07:30 08:00 18:12 WBC RBC Hgb Hct MCV MCH MCHC RDW Plt Count MPV Gran % Lymph % (Auto) [place] % (Auto) Eos % (Auto) Baso % (Auto) Gran # Lymph # (Auto) [place] # (Auto) Eos # (Auto) Baso # (Auto) APTT 80.7 H Sodium Potassium Chloride Carbon Dioxide Anion Gap BUN Creatinine Est GFR ( Amer) Est GFR (Non-Af Amer) Random Glucose Calcium Total Bilirubin AST ALT Alkaline Phosphatase Total Creatine Kinase 94 Total Protein Albumin Globulin Albumin/Globulin Ratio 25-OH Vitamin D Total 28.6 L 09/29/17 18:40 WBC 13.2 H D RBC 4.81 Hgb 12.1 D Hct 38.4 MCV 79.8 L MCH 25.2 MCHC 31.5 RDW 15.3 H Plt Count 295 MPV 11.4 H Gran % Lymph % (Auto) [place] % (Auto) Eos % (Auto) Baso % (Auto) Gran # Lymph # (Auto) [place] # (Auto) Eos # (Auto) Baso # (Auto) APTT Sodium Potassium Chloride Carbon Dioxide Anion Gap BUN Creatinine Est GFR ( Amer) Est GFR (Non-Af Amer) Random Glucose Calcium Total Bilirubin AST ALT Alkaline Phosphatase Total Creatine Kinase Total Protein Albumin Globulin Albumin/Globulin Ratio 25-OH Vitamin D Total Assessment & Plan - Assessment and Plan (Free Text) Assessment: 52yo female PMHx HTN, HLD, DM, valve replacement on coumadin presented to [facility] ED with SOB found to have NSTEMI. Patient had HOGS[facility] LINER called for SOB and tachycardia and found to be in pulmonary edema and transferred to CCU for further monitoring. Plan: Neuro -no acute issues patient is AO x 3 -Head CT negative -Aricept hs -HoB above 30 degrees Cardio -presented with NSTEMI and on heparin gtt -repeat troponin during HOGSHEAD LINER 1.07 --> 1.65 -probnp [id number] -continue asa, lipitor, plavix, toprol xl -plan is for cardiac cath at [facility] on Sunday 10/01 -monitor daily weight and strict Is and Os -Cardio on board Pulm -f/u CXR in AM -BiPAP prn and hs -Lasix 40mg ivp bid -Maintain spO2 > 92% GI -no acute issues Renal -monitor creatinine -avoid nephrotoxic drugs -monitor electrolytes -strict Is and Os Endo -Accucheck and RISS to maintain euglycemia Heme -no acute issues GI ppx: PTX DVT ppx: patient on heparin gtt Diet: HHD Discussed with Dr. Justine Santoro PGY2 <Justine FRANZ,Rodger - Last Filed: 09/30/17 07:20> Meds - Medications Medications: Current Medications Aspirin (Ecotrin) 81 mg PO DAILY [facility] Last Admin: 09/29/17 10:16 Dose: 81 mg Atorvastatin Calcium (Lipitor) 40 mg PO DIN [facility] Last Admin: 09/29/17 17:09 Dose: 40 mg Calcitriol (Rocaltrol) 0.25 mcg PO DAILY [facility] Last Admin: 09/29/17 10:16 Dose: 0.25 mcg Clopidogrel Bisulfate (Plavix) 75 mg PO DAILY [facility] Last Admin: 09/29/17 10:15 Dose: 75 mg Donepezil HCl (Aricept) 5 mg PO HS [facility] Last Admin: 09/29/17 22:45 Dose: 5 mg Furosemide (Lasix) 40 mg IVP BID [facility] Heparin Sodium/Sodium Chloride (Heparin 48932 Units/250ml 1/2 Normal Saline) 25 ,000 units in 250 mls @ 10.668 mls/hr IV .[id number] [facility]; 12 UNITS/KG/HR PRN Reason: Protocol Stop: 10/01/17 04:00 Last Titration: 09/29/17 18:40 Dose: 4.16 units/kg/hr, 3.7 mls/hr Insulin Human Lispro (Humalog Low) 0 units SC ACHS [facility] PRN Reason: Protocol Last Admin: 09/29/17 22:00 Dose: Not Given Lisinopril (Zestril) 5 mg PO DAILY [facility] Last Admin: 09/29/17 10:09 Dose: Not Given Metoprolol Succinate (Toprol Xl) 25 mg PO BID [facility] Last Admin: 09/29/17 17:23 Dose: Not Given Oxycodone/Acetaminophen (Percocet 2.5/325 Mg Tab) 1 tab PO Q6H PRN PRN Reason: Pain, Mild (1-3) Pantoprazole Sodium (Protonix Ec Tab) 40 mg PO 0600 [facility] Last Admin: 09/30/17 06:12 Dose: 40 mg Results - Vital Signs Recent Vital Signs: Last Vital Signs Temp 98 F 09/29/17 17:17 Pulse 94 H 09/30/17 06:00 Resp 16 09/29/17 17:17 BP 95/64 L 09/29/17 17:23 Pulse Ox 98 09/29/17 17:17 - Labs Result Diagrams: 09/30/17 05:00 09/30/17 05:00 Labs: Laboratory Results - last 24 hr 09/29/17 09/29/17 09/29/17 07:30 07:30 07:30 WBC 6.0 D RBC 4.04 Hgb 9.8 L Hct 31.7 L MCV 78.5 L MCH 24.3 L MCHC 30.9 L RDW 15.0 H Plt Count 191 MPV 11.3 H Gran % 64.9 Lymph % (Auto) 23.1 [place] % (Auto) 6.1 H Eos % (Auto) 5.6 H Baso % (Auto) 0.3 Gran # 3.91 Lymph # (Auto) 1.4 [place] # (Auto) 0.4 Eos # (Auto) 0.3 Baso # (Auto) 0.02 APTT 80.7 H Sodium 143 Potassium 3.7 Chloride 101 Carbon Dioxide 31 Anion Gap 15 BUN 43 H Creatinine 2.1 H Est GFR ( Amer) 30 Est GFR (Non-Af Amer) 25 POC Glucose (mg/dL) Random Glucose 108 Calcium 8.3 L Phosphorus Magnesium Total Bilirubin 0.7 AST 34 ALT 38 Alkaline Phosphatase 54 Total Creatine Kinase Troponin I NT-Pro-B Natriuret Pep Total Protein 6.5 Albumin 3.6 Globulin 3.0 Albumin/Globulin Ratio 1.2 25-OH Vitamin D Total Urine Color Urine Appearance Urine pH Ur Specific [place] Urine Protein Urine Glucose (UA) Urine Ketones Urine Blood Urine Nitrate Urine Bilirubin Urine Urobilinogen Ur Leukocyte Esterase Ur Random Sodium Ur Random Potassium Ur Random Urea Nitrogn 09/29/17 09/29/17 09/29/17 08:00 18:12 18:40 WBC 13.2 H D RBC 4.81 Hgb 12.1 D Hct 38.4 MCV 79.8 L MCH 25.2 MCHC 31.5 RDW 15.3 H Plt Count 295 MPV 11.4 H Gran % Lymph % (Auto) [place] % (Auto) Eos % (Auto) Baso % (Auto) Gran # Lymph # (Auto) [place] # (Auto) Eos # (Auto) Baso # (Auto) APTT Sodium 143 Potassium 4.0 Chloride 100 Carbon Dioxide 23 Anion Gap 24 H BUN 47 H Creatinine 2.3 H Est GFR ( Amer) 27 Est GFR (Non-Af Amer) 22 POC Glucose (mg/dL) Random Glucose 168 H Calcium 8.9 Phosphorus Magnesium Total Bilirubin 0.6 AST 32 ALT 28 Alkaline Phosphatase 76 Total Creatine Kinase 94 Troponin I 1.07 H* D NT-Pro-B Natriuret Pep 70874 H Total Protein 8.0 Albumin 4.4 Globulin 3.7 Albumin/Globulin Ratio 1.2 25-OH Vitamin D Total 28.6 L Urine Color Urine Appearance Urine pH Ur Specific [place] Urine Protein Urine Glucose (UA) Urine Ketones Urine Blood Urine Nitrate Urine Bilirubin Urine Urobilinogen Ur Leukocyte Esterase Ur Random Sodium Ur Random Potassium Ur Random Urea Nitrogn 09/29/17 09/30/17 09/30/17 21:53 00:25 00:40 WBC RBC Hgb Hct MCV MCH MCHC RDW Plt Count MPV Gran % Lymph % (Auto) [place] % (Auto) Eos % (Auto) Baso % (Auto) Gran # Lymph # (Auto) [place] # (Auto) Eos # (Auto) Baso # (Auto) APTT Sodium Potassium Chloride Carbon Dioxide Anion Gap BUN Creatinine Est GFR ( Amer) Est GFR (Non-Af Amer) POC Glucose (mg/dL) 164 H Random Glucose Calcium Phosphorus Magnesium Total Bilirubin AST ALT Alkaline Phosphatase Total Creatine Kinase Troponin I 1.65 H* D NT-Pro-B Natriuret Pep Total Protein Albumin Globulin Albumin/Globulin Ratio 25-OH Vitamin D Total Urine Color Urine Appearance Urine pH Ur Specific [place] Urine Protein Urine Glucose (UA) Urine Ketones Urine Blood Urine Nitrate Urine Bilirubin Urine Urobilinogen Ur Leukocyte Esterase Ur Random Sodium < 5 Ur Random Potassium 50.5 Ur Random Urea Nitrogn 1002 09/30/17 09/30/17 09/30/17 00:40 05:00 05:00 WBC 7.5 D RBC 4.22 Hgb 10.3 L Hct 32.9 L MCV 78.0 L MCH 24.4 L MCHC 31.3 RDW 15.1 H Plt Count 217 MPV 11.0 Gran % 76.1 H Lymph % (Auto) 16.2 L [place] % (Auto) 4.1 Eos % (Auto) 3.3 Baso % (Auto) 0.3 Gran # 5.72 Lymph # (Auto) 1.2 [place] # (Auto) 0.3 Eos # (Auto) 0.3 Baso # (Auto) 0.02 APTT Sodium 142 Potassium 3.7 Chloride 100 Carbon Dioxide 29 Anion Gap 17 BUN 47 H Creatinine 2.1 H Est GFR ( Amer) 30 Est GFR (Non-Af Amer) 25 POC Glucose (mg/dL) Random Glucose 137 H Calcium 8.4 Phosphorus 4.0 Magnesium 2.0 Total Bilirubin 0.8 AST 32 ALT 37 Alkaline Phosphatase 56 Total Creatine Kinase Troponin I 1.44 H* NT-Pro-B Natriuret Pep Total Protein 7.0 Albumin 3.7 Globulin 3.3 Albumin/Globulin Ratio 1.1 25-OH Vitamin D Total Urine Color Yellow Urine Appearance Clear Urine pH 5.5 Ur Specific [place] 1.020 Urine Protein Negative Urine Glucose (UA) Negative Urine Ketones Negative Urine Blood Negative Urine Nitrate Negative Urine Bilirubin Negative Urine Urobilinogen 0.2 Ur Leukocyte Esterase Negative Ur Random Sodium Ur Random Potassium Ur Random Urea Nitrogn Attending/Attestation - Attestation I have personally seen and examined this patient.: Yes I have fully participated in the care of the patient.: Yes I have reviewed all pertinent clinical information: Yes Notes (Text): -I agree with the above ICU consult note completed by the resident physician with the following additions and/or changes: -The patient is a 52 year old woman with a history of AVR (8-9 years ago), CKD, HTN, NIDDM and HL, admitted to telemetry for NSTEMI. She developed acute SOB yesterday evening, likely due to flash pulmonary edema and therefore was upgraded to ICU. After starting Bipap and receiving IV Lasix, her symptoms markedly improved. Also, serial troponins obtained over the last 12-15 hours have remained stable between 1.0-1.65. She is on Heparin drip and Plavix. She will continue BiPaP and Lasix IV Q12hrs (with strict I/Os and daily weights). She will be transferred to [facility] on Sunday to undergo cardiac cath per . Critical Care Time Spent: 45-60 minutes
[2017-09-29 19:18] LABS: TROPONIN I 1.07 ng/mL
[2017-09-29 20:08] LABS: ALBUMIN 4.4 g/dL (3.0-4.8); CALCIUM 8.9 mg/dL (8.4-10.5)
[2017-09-29 20:09] LABS: ALB/GLOB RATIO 1.2 (1.1-1.8)
[2017-09-30 01:06] LABS: PH,URINE 5.5 (4.7-8.0); URINE BILIRUBIN NEGATIVE (NEGATIVE); URINE BLOOD NEGATIVE (NEGATIVE); URINE GLUCOSE (UA) NEGATIVE (NEGATIVE); URINE LEUKOCYTE ESTERASE NEGATIVE Leu/uL (NEGATIVE); URINE PROTEIN NEGATIVE mg/dL (<30 mg/dL); URINE UROBILINOGEN 0.2 E.U./dL (<1 E.U./dL)
[2017-09-30 01:10] LABS: URINE APPEARANCE CLEAR (CLEAR); URINE COLOR YELLOW (YELLOW)
[2017-09-30 05:44] LABS: BASO # 0.02 K/mm3 (0.0-2.0); BASO % 0.3 % (0.0-3.0); EOS # 0.3 (0.0-0.7); EOS % 3.3 % (1.5-5.0); GRAN # 5.72 (1.4-6.5); GRAN % 76.1 % (50.0-68.0); HEMOGLOBIN 10.3 g/dL (12.0-16.0); LYMPH # 1.2 (1.2-3.4); LYMPH % 16.2 % (22.0-35.0); MEAN CORPUSCULAR HEMOGLOBIN 24.4 pg (25.0-35.0); MEAN CORPUSCULAR HGB CONC 31.3 g/dl (31.0-37.0); MONO # 0.3 (0.1-0.6); MONO % 4.1 % (1.0-6.0); RBC 4.22 10^6/uL (3.5-6.1); RED CELL DISTRIBUTION WIDTH 15.1 % (11.5-14.5); WHITE BLOOD COUNT 7.5 10^3/ul (4.5-11.0)
[2017-09-30 05:51] LABS: ALB/GLOB RATIO 1.1 (1.1-1.8); ALBUMIN 3.7 g/dL (3.0-4.8); CALCIUM 8.4 mg/dL (8.4-10.5)
[2017-09-30] MEDS ORDERED: Pantoprazole 40 mg EC Tab PO SCH (06:00)
[2017-09-30 06:03] LABS: TROPONIN I 1.44 ng/mL
[2017-09-30] MEDS: Insulin Lispro (humaLOG) LOW Coverage SC SCH ×2 (08:00→11:20)
[2017-09-30 08:55] VITALS: TEMP 98.4
--- NOTE | 2017-09-30 09:25 | RAD ---
HISTORY: CHF COMPARISON: September 29, 2017. FINDINGS: LUNGS: Worsening pulmonary edema PLEURA: No significant pleural effusion identified, no pneumothorax apparent. CARDIOVASCULAR: Stable cardiomegaly. OSSEOUS STRUCTURES: No significant abnormalities. VISUALIZED UPPER ABDOMEN: Normal. OTHER FINDINGS: None. IMPRESSION: Progressive pulmonary edema.
--- NOTE | 2017-09-30 10:19 | CP.PCM.CON ---
History of Present Illness - History of Present Illness History of Present Illness: Nephrology Consult Consult for ARLEN 52yo female PMHx CKD III, DM, HTN, AVR that presented intially to ER w/ SOB. She was diagnosed w/ NSTEMI. She was seen by cardiology for NSTEMI. While on the floors she developed a rapid response for CP paind and hypoxia. She was taken to the MICU for further evaluatino. She has remained on bipap. She was given a higher dose of lasix. She feels more comfortable currently on bipap. She denies any other complaints. ROS: A full detailed ROS is negative except as in my hpi . PMHx: CKD III, hypertension, hyperlipidemia, diabetes PSurgHx: valve replacement on Coumadin SocHx: denies smoking, alcohol use, illicit drug use FamHx: father- heart disease All: nkda medss: as below PE: vs as below gen: nad sclera: anicteric op: clear neck: supple cv: +s1+s2 lungs: crackles b/l abd: soft nt/nd ext: no edema neuro: A+OX3 psych: nml affect skin no rash labs and imaging reviewed CXR w/ congestion IMP: ARF/ CKD III/ Hypertensive kidney disease / NSTEMI/ Pulmonary Edema / secondary hyperparathyroid plan: Cr improved today from yesterday agree w/ diuresis, I/O check later today give 80 iv lasix if not negative Hold lisinopril as bp low, actively diuresing and arlen monitor H and H f/u w/ cardiology re: plans for cath d/c calcitriol Past Patient History - Infectious Disease Hx of Infectious Diseases: None - Past Social History Smoking Status: Never Smoked - CARDIAC Hx Cardiac Disorders: Yes Hx Congestive Heart Failure: Yes (09-27-17) Hx Hypercholesterolemia: Yes Hx Hypertension: Yes Hx Peripheral Edema: Yes Other/Comment: metal valve-AVR - PULMONARY Hx Respiratory Disorders: Yes Hx Asthma: Yes - NEUROLOGICAL Hx Neurological Disorder: Yes Hx Dizziness: Yes (09-27-17) - HEENT Hx HEENT Problems: Yes (BILATERAL EYE SURGERY) - RENAL Hx Chronic Kidney Disease: No - ENDOCRINE/METABOLIC Hx Endocrine Disorders: Yes Hx Diabetes Mellitus Type 2: Yes - HEMATOLOGICAL/ONCOLOGICAL Hx Blood Disorders: No - INTEGUMENTARY Hx Dermatological Problems: No - MUSCULOSKELETAL/RHEUMATOLOGICAL Hx Musculoskeletal Disorders: No Hx Falls: Yes (09-27-17) - GASTROINTESTINAL Hx Gastrointestinal Disorders: No - GENITOURINARY/GYNECOLOGICAL Hx Genitourinary Disorders: Yes (REMOVED CYST IN THE OVARY-R) - PSYCHIATRIC Hx Psychophysiologic Disorder: No Hx Substance Use: No - SURGICAL HISTORY Hx Surgeries: Yes (OVARIAN CYST REMOVED-R) Hx Open Heart Surgery: Yes (aortic valve 2009) Other/Comment: metal valve - ANESTHESIA Hx Anesthesia: Yes Hx Anesthesia Reactions: No Hx Malignant Hyperthermia: No Meds Allergies/Adverse Reactions: Allergies Allergy/AdvReac Type Severity Reaction Status Date / Time No Known Allergies Allergy Verified 09/27/17 12:01 - Medications Medications: Current Medications Aspirin (Ecotrin) 81 mg PO DAILY [facility] Last Admin: 09/29/17 10:16 Dose: 81 mg Atorvastatin Calcium (Lipitor) 40 mg PO DIN [facility] Last Admin: 09/29/17 17:09 Dose: 40 mg Calcitriol (Rocaltrol) 0.25 mcg PO DAILY [facility] Last Admin: 09/29/17 10:16 Dose: 0.25 mcg Clopidogrel Bisulfate (Plavix) 75 mg PO DAILY [facility] Last Admin: 09/29/17 10:15 Dose: 75 mg Heparin Sodium/Sodium Chloride (Heparin 08384 Units/250ml 1/2 Normal Saline) 25 ,000 units in 250 mls @ 10.668 mls/hr IV .[id number] [facility]; 12 UNITS/KG/HR PRN Reason: Protocol Stop: 10/01/17 04:00 Last Titration: 09/30/17 07:58 Dose: 4.16 units/kg/hr, 3.7 mls/hr Insulin Human Lispro (Humalog Low) 0 units SC ACHS [facility] PRN Reason: Protocol Last Admin: 09/30/17 08:00 Dose: Not Given Metoprolol Succinate (Toprol Xl) 25 mg PO BID [facility] Last Admin: 09/29/17 17:23 Dose: Not Given Oxycodone/Acetaminophen (Percocet 2.5/325 Mg Tab) 1 tab PO Q6H PRN PRN Reason: Pain, Mild (1-3) Pantoprazole Sodium (Protonix Ec Tab) 40 mg PO 0600 [facility] Last Admin: 09/30/17 06:12 Dose: 40 mg Results - Vital Signs Recent Vital Signs: Last Vital Signs Temp 98.4 F 09/30/17 08:45 Pulse 94 H 09/30/17 06:00 Resp 16 09/29/17 17:17 BP 95/64 L 09/29/17 17:23 Pulse Ox 98 09/29/17 17:17 - Labs Result Diagrams: 09/30/17 05:00 09/30/17 05:00 Labs: Laboratory Results - last 24 hr 09/29/17 09/29/17 09/29/17 08:00 18:12 18:40 WBC 13.2 H D RBC 4.81 Hgb 12.1 D Hct 38.4 MCV 79.8 L MCH 25.2 MCHC 31.5 RDW 15.3 H Plt Count 295 MPV 11.4 H Gran % Lymph % (Auto) [place] % (Auto) Eos % (Auto) Baso % (Auto) Gran # Lymph # (Auto) [place] # (Auto) Eos # (Auto) Baso # (Auto) APTT Sodium 143 Potassium 4.0 Chloride 100 Carbon Dioxide 23 Anion Gap 24 H BUN 47 H Creatinine 2.3 H Est GFR ( Amer) 27 Est GFR (Non-Af Amer) 22 POC Glucose (mg/dL) Random Glucose 168 H Calcium 8.9 Phosphorus Magnesium Total Bilirubin 0.6 AST 32 ALT 28 Alkaline Phosphatase 76 Total Creatine Kinase 94 Troponin I 1.07 H* D NT-Pro-B Natriuret Pep 07364 H Total Protein 8.0 Albumin 4.4 Globulin 3.7 Albumin/Globulin Ratio 1.2 25-OH Vitamin D Total 28.6 L Urine Color Urine Appearance Urine pH Ur Specific [place] Urine Protein Urine Glucose (UA) Urine Ketones Urine Blood Urine Nitrate Urine Bilirubin Urine Urobilinogen Ur Leukocyte Esterase Ur Random Sodium Ur Random Potassium Ur Random Urea Nitrogn 09/29/17 09/30/17 09/30/17 21:53 00:25 00:40 WBC RBC Hgb Hct MCV MCH MCHC RDW Plt Count MPV Gran % Lymph % (Auto) [place] % (Auto) Eos % (Auto) Baso % (Auto) Gran # Lymph # (Auto) [place] # (Auto) Eos # (Auto) Baso # (Auto) APTT Sodium Potassium Chloride Carbon Dioxide Anion Gap BUN Creatinine Est GFR ( Amer) Est GFR (Non-Af Amer) POC Glucose (mg/dL) 164 H Random Glucose Calcium Phosphorus Magnesium Total Bilirubin AST ALT Alkaline Phosphatase Total Creatine Kinase Troponin I 1.65 H* D NT-Pro-B Natriuret Pep Total Protein Albumin Globulin Albumin/Globulin Ratio 25-OH Vitamin D Total Urine Color Urine Appearance Urine pH Ur Specific [place] Urine Protein Urine Glucose (UA) Urine Ketones Urine Blood Urine Nitrate Urine Bilirubin Urine Urobilinogen Ur Leukocyte Esterase Ur Random Sodium < 5 Ur Random Potassium 50.5 Ur Random Urea Nitrogn 1002 09/30/17 09/30/17 09/30/17 00:40 05:00 05:00 WBC 7.5 D RBC 4.22 Hgb 10.3 L Hct 32.9 L MCV 78.0 L MCH 24.4 L MCHC 31.3 RDW 15.1 H Plt Count 217 MPV 11.0 Gran % 76.1 H Lymph % (Auto) 16.2 L [place] % (Auto) 4.1 Eos % (Auto) 3.3 Baso % (Auto) 0.3 Gran # 5.72 Lymph # (Auto) 1.2 [place] # (Auto) 0.3 Eos # (Auto) 0.3 Baso # (Auto) 0.02 APTT Sodium 142 Potassium 3.7 Chloride 100 Carbon Dioxide 29 Anion Gap 17 BUN 47 H Creatinine 2.1 H Est GFR ( Amer) 30 Est GFR (Non-Af Amer) 25 POC Glucose (mg/dL) Random Glucose 137 H Calcium 8.4 Phosphorus 4.0 Magnesium 2.0 Total Bilirubin 0.8 AST 32 ALT 37 Alkaline Phosphatase 56 Total Creatine Kinase Troponin I 1.44 H* NT-Pro-B Natriuret Pep Total Protein 7.0 Albumin 3.7 Globulin 3.3 Albumin/Globulin Ratio 1.1 25-OH Vitamin D Total Urine Color Yellow Urine Appearance Clear Urine pH 5.5 Ur Specific [place] 1.020 Urine Protein Negative Urine Glucose (UA) Negative Urine Ketones Negative Urine Blood Negative Urine Nitrate Negative Urine Bilirubin Negative Urine Urobilinogen 0.2 Ur Leukocyte Esterase Negative Ur Random Sodium Ur Random Potassium Ur Random Urea Nitrogn 09/30/17 09/30/17 05:00 07:47 WBC RBC Hgb Hct MCV MCH MCHC RDW Plt Count MPV Gran % Lymph % (Auto) [place] % (Auto) Eos % (Auto) Baso % (Auto) Gran # Lymph # (Auto) [place] # (Auto) Eos # (Auto) Baso # (Auto) APTT 77.1 H Sodium Potassium Chloride Carbon Dioxide Anion Gap BUN Creatinine Est GFR ( Amer) Est GFR (Non-Af Amer) POC Glucose (mg/dL) 120 H Random Glucose Calcium Phosphorus Magnesium Total Bilirubin AST ALT Alkaline Phosphatase Total Creatine Kinase Troponin I NT-Pro-B Natriuret Pep Total Protein Albumin Globulin Albumin/Globulin Ratio 25-OH Vitamin D Total Urine Color Urine Appearance Urine pH Ur Specific [place] Urine Protein Urine Glucose (UA) Urine Ketones Urine Blood Urine Nitrate Urine Bilirubin Urine Urobilinogen Ur Leukocyte Esterase Ur Random Sodium Ur Random Potassium Ur Random Urea Nitrogn
--- NOTE | 2017-09-30 10:37 | CP.PCM.PN ---
<DemetrisJorge - Last Filed: 09/30/17 10:42> Subjective - Date & Time of Evaluation Date of Evaluation: 09/30/17 Time of Evaluation: 08:25 - Subjective Subjective: Hospitalist Service Patient seen and examined at bedside in room 129-7 in CCU. Overnight events noted, patent developed acute -onset of chest tightness, dyspnea, and was found to have developed flash pulmonary edema. Patient remains on BIPAP. Reports improvement in chest discomfort and dyspnea compared to yesterday's event. Objective - Vital Signs/Intake and Output Vital Signs (last 24 hours): Temp Pulse Resp BP Pulse Ox 98.4 F 94 H 16 95/64 L 98 09/30/17 08:45 09/30/17 06:00 09/29/17 17:17 09/29/17 17:23 09/29/17 17:17 Intake and Output: 09/30/17 09/30/17 06:59 18:59 Intake Total 40 41 Output Total 550 Balance -510 41 - Medications Medications: Current Medications Aspirin (Ecotrin) 81 mg PO DAILY [facility] Last Admin: 09/29/17 10:16 Dose: 81 mg Atorvastatin Calcium (Lipitor) 40 mg PO DIN [facility] Last Admin: 09/29/17 17:09 Dose: 40 mg Clopidogrel Bisulfate (Plavix) 75 mg PO DAILY [facility] Furosemide (Lasix) 40 mg IVP Q8H [facility] Heparin Sodium/Sodium Chloride (Heparin 28664 Units/250ml 1/2 Normal Saline) 25 ,000 units in 250 mls @ 10.668 mls/hr IV .[id number] [facility]; 12 UNITS/KG/HR PRN Reason: Protocol Stop: 10/01/17 04:00 Last Titration: 09/30/17 07:58 Dose: 4.16 units/kg/hr, 3.7 mls/hr Insulin Human Lispro (Humalog Low) 0 units SC ACHS [facility] PRN Reason: Protocol Last Admin: 09/30/17 08:00 Dose: Not Given Metoprolol Succinate (Toprol Xl) 25 mg PO BID [facility] Last Admin: 09/29/17 17:23 Dose: Not Given Oxycodone/Acetaminophen (Percocet 2.5/325 Mg Tab) 1 tab PO Q6H PRN PRN Reason: Pain, Mild (1-3) Pantoprazole Sodium (Protonix Ec Tab) 40 mg PO 0600 [facility] Last Admin: 09/30/17 06:12 Dose: 40 mg - Labs Labs: 09/30/17 05:00 09/30/17 05:00 PT 17.1 SECONDS (9.4-12.5) H 09/28/17 05:30 INR 1.48 (0.93-1.08) H 09/28/17 05:30 APTT 77.1 Seconds (25.1-36.5) H 09/30/17 05:00 - Constitutional Appears: Non-toxic - Head Exam Head Exam: ATRAUMATIC, NORMOCEPHALIC - Eye Exam Eye Exam: EOMI, Normal appearance - Respiratory Exam Respiratory Exam: Rales (bilaterally) - Cardiovascular Exam Cardiovascular Exam: RRR, +S1, +S2 - GI/Abdominal Exam GI & Abdominal Exam: Soft, Normal Bowel Sounds - Extremities Exam Extremities Exam: Pedal Edema. absent: Calf Tenderness - Neurological Exam Neurological Exam: Awake - Psychiatric Exam Psychiatric exam: Normal Affect, Normal Mood - Skin Skin Exam: Dry, Intact, Normal Color, Warm Assessment and Plan - Assessment and Plan (Free Text) Assessment: Assessment: Assessment and Plan (1) NSTEMI (non-ST elevated myocardial infarction) Assessment & Plan: Cardio (Jaxson) Cardiac cath will take place at [facility] as patient is on aricept and increased risk of complications during cardiac cath with patients taking this medication ASA 81 QD Plavix 75 PO QD Metoprolol 50 PO BID Lipitor 40 PO HS Status: Acute (2) CHF (congestive heart failure) with flash pulmonary edema Assessment & Plan: - ASA 81 QD - Plavix 75 QD - Lipitor 40 PO QD - Lisinopril 5 PO QD (held) - Lasix 40 mg q8h [facility] - Echocardiogram shows LV is normal size, mild concentric LVH; systolic function is mildly impaired; LVEF 45-50%; s/p mechanical Aortic valve replacement not well visualized, and has high peak velocity and peak gradient 119 mmHg; suggest GAETANO after PTCA, Mitral regurgitation is moderate; Mild to moderate tricuspid regurgitation RVSP 48 mmHg; Trace to mild pulmonic valvular regurgitation; no thrombus noted. - Pro-BNP was noted to be 27,900 during the rapid. - Chest X-ray this morning shows progressive pulmonary edema. - Continue with BIPAP Status: Chronic (3) Aortic valve replaced Assessment & Plan: Patient takes warfarin at home D/c and started on heparin drip as patient is awaiting cardiac cath Status: Chronic (4) Prophylactic measure Assessment & Plan: heparin drip scd no GI PPX indicated at this time Status: Acute 5) ARLEN on CKD - Creatinine trending down - Nephrology, consulted, Dr. Blanco - Vitamin D discontinued <Romel Sigala - Last Filed: 09/30/17 11:58> Objective - Vital Signs/Intake and Output Vital Signs (last 24 hours): Temp Pulse Resp BP Pulse Ox 98.4 F 108 H 16 98/53 L 98 09/30/17 08:45 09/30/17 10:58 09/29/17 17:17 09/30/17 10:59 09/29/17 17:17 Intake and Output: 09/30/17 09/30/17 06:59 18:59 Intake Total 40 41 Output Total 550 Balance -510 41 - Medications Medications: Current Medications Aspirin (Ecotrin) 81 mg PO DAILY [facility] Last Admin: 09/30/17 10:59 Dose: 81 mg Atorvastatin Calcium (Lipitor) 40 mg PO DIN [facility] Last Admin: 09/29/17 17:09 Dose: 40 mg Clopidogrel Bisulfate (Plavix) 75 mg PO DAILY [facility] Last Admin: 09/30/17 10:57 Dose: 75 mg Furosemide (Lasix) 40 mg IVP Q8H [facility] Last Admin: 09/30/17 11:07 Dose: Not Given Heparin Sodium/Sodium Chloride (Heparin 24666 Units/250ml 1/2 Normal Saline) 25 ,000 units in 250 mls @ 10.668 mls/hr IV .[id number] [facility]; 12 UNITS/KG/HR PRN Reason: Protocol Stop: 10/01/17 04:00 Last Titration: 09/30/17 07:58 Dose: 4.16 units/kg/hr, 3.7 mls/hr Insulin Human Lispro (Humalog Low) 0 units SC ACHS [facility] PRN Reason: Protocol Last Admin: 09/30/17 11:20 Dose: Not Given Metoprolol Succinate (Toprol Xl) 25 mg PO BID [facility] Last Admin: 09/30/17 10:58 Dose: Not Given Oxycodone/Acetaminophen (Percocet 2.5/325 Mg Tab) 1 tab PO Q6H PRN PRN Reason: Pain, Mild (1-3) Pantoprazole Sodium (Protonix Ec Tab) 40 mg PO 0600 [facility] Last Admin: 09/30/17 06:12 Dose: 40 mg - Labs Labs: 09/30/17 05:00 09/30/17 05:00 PT 17.1 SECONDS (9.4-12.5) H 09/28/17 05:30 INR 1.48 (0.93-1.08) H 09/28/17 05:30 APTT 77.1 Seconds (25.1-36.5) H 09/30/17 05:00 Attending/Attestation - Attestation I have personally seen and examined this patient.: Yes I have fully participated in the care of the patient.: Yes I have reviewed all pertinent clinical information, including history, physical exam and plan: Yes Notes (Text): 09/30/17 11:48 Medical record note made by the resident after discussion with my direction and input after the patient was personally seen and examined by me. I have reviewed the chart and agree that the record accurately reflects by personal performance of the history, physical exam, data review, and medical decision-making, in the course for the patient. I have also personally directed the plan of care. 52 year old female with past medical history of hypertension, hyperlipidemia, diabetes, and SO Aortic valve replacement on Coumadin, was admitted with chest tightness and sob, found to have NSEMI, maximum troponin 3.01 and CHF exacerbation.Patient CHF improved initially however yesterday evening patient went into Pulmonary edema , was transferred to ICU,she has responded well to high dose of lasix and is tolerating BIPAPA . Creatinin is slightly better, X ray today is still congested,we will increase lasix dose to 40 mg IV q 8 hour.We will monitor BUN and creatinin. Nephrology evaluation is appreciated Management plan was discussed in detail with patient and family. Education was provided 09/30/17 11:57
[2017-09-30] MEDS: Metoprolol Succinate 25 mg XL Tab PO SCH (10:58)
--- NOTE | 2017-09-30 11:01 | CP.CCUPN ---
<Rogelio Rendon - Last Filed: 09/30/17 10:58> CCU Subjective - Physician Review Subjective (Free Text): 09/30/17 10:59 Rogelio Rendon D.O. PGY-2, Internal Medicine Resident, Critical Care Progress Note 52 year old female with a PMH of HTN, AVR w/ mechanical valve and DM who presented to the [facility] ER with the complaints of midsternal chest tightness along with an episode of nausea and vomiting, found to have an NSTEMI who then developed flash pulmonary edema likely from acute decompensated heart failure 2/ 2 NSTEMI on the medical floor and was transferred to the ICU. Patient was seen and examined at bedside. Son is at bedside and aids in translation as patient is Mohawk speaking. On BIPAP overnight which states helped. Eating ok now but not much appetite. Wants to have the mask back on as it makes her breathing more comfortable. CCU Objective - Vital Signs / Intake & Output Vital Signs (Last 4 hours): Vital Signs Temp 09/30/17 08:45 98.4 F Intake and Output (Last 8hrs): Intake & Output 09/29/17 09/30/17 09/30/17 22:59 06:59 14:59 Intake Total 120 40 41 Output Total 550 Balance 120 -510 41 Intake: IV 120 40 41 Right Forearm 40 Output: Urine 550 Urethral (Brooks) 550 Stool 0 - Physical Exam Head: Positive for: Atraumatic, Normocephalic Pupils: Positive for: PERRL Extroacular Muscles: Positive for: EOMI Conjunctiva: Positive for: Normal Mouth: Positive for: Moist Mucous Membranes Neck: Positive for: Normal Range of Motion Respiratory/Chest: Positive for: Rales (bibasilar). Negative for: Respiratory Distress, Accessory Muscle Use Cardiovascular: Positive for: Regular Rate and Rhythm, Murmurs (2/6 systolic), Normal S1, S2 Abdomen: Positive for: Normal Bowel Sounds. Negative for: Tenderness, Distention, Peritoneal Signs Back: Positive for: Normal Inspection Upper Extremity: Positive for: Normal Inspection. Negative for: Cyanosis, Edema Lower Extremity: Positive for: Normal Inspection, Edema (+1) Neurological: Positive for: GCS=15, CN II-XII Intact, Speech Normal, Other ( Mohawk speaking, son at bedside aided in translation) Skin: Positive for: Warm, Dry, Normal Color. Negative for: Rashes Psychiatric: Positive for: Alert, Oriented x 3, Normal Insight, Normal Concentration - Medications Active Medications: Active Medications Generic Name Dose Route Start Last Admin Trade Name Freq PRN Reason Stop Dose Admin Aspirin 81 mg 09/27/17 10:00 09/29/17 10:16 Ecotrin PO 81 mg DAILY HASEEB Administration Atorvastatin Calcium 40 mg 09/27/17 17:00 09/29/17 17:09 Lipitor PO 40 mg DIN HASEEB Administration Clopidogrel Bisulfate 75 mg 10/01/17 10:00 Plavix PO DAILY [facility] Furosemide 40 mg 09/30/17 10:30 Lasix IVP Q8H [facility] Heparin Sodium/Sodium Chloride 25,000 units in 250 mls @ 10.668 mls/hr 11:45 09/30/17 07:58 Heparin 46439 Units/250ml 1/2 Normal Saline IV 10/01/17 04:00 4.16 units/kg /hr .[id number] HASEEB 3.7 mls/hr Protocol Titration 12 UNITS/KG/HR Insulin Human Lispro 0 units 09/27/17 07:30 09/30/17 08:00 Humalog Low SC Not Given ACHS [facility] Protocol Metoprolol Succinate 25 mg 09/29/17 07:33 09/29/17 17:23 Toprol Xl PO Not Given BID [facility] Oxycodone/Acetaminophen 1 tab 09/29/17 11:42 Percocet 2.5/325 Mg Tab PO Q6H PRN Pain, Mild (1-3) Pantoprazole Sodium 40 mg 09/30/17 06:00 09/30/17 06:12 Protonix Ec Tab PO 40 mg 0600 [facility] Administration - Patient Studies Lab Studies: Lab Studies 09/30/17 09/30/17 09/30/17 Range/Units 07:47 05:00 05:00 WBC (4.5-11.0) 10^3/ul RBC (3.5-6.1) 10^6/uL Hgb (12.0-16.0) g/dL Hct (36.0-48.0) % MCV (80.0-105.0) fl MCH (25.0-35.0) pg MCHC (31.0-37.0) g/dl RDW (11.5-14.5) % Plt Count (120.0-450.0) 10^3/uL MPV (7.0-11.0) fl Gran % (50.0-68.0) % Lymph % (Auto) (22.0-35.0) % [place] % (Auto) (1.0-6.0) % Eos % (Auto) (1.5-5.0) % Baso % (Auto) (0.0-3.0) % Gran # (1.4-6.5) Lymph # (Auto) (1.2-3.4) [place] # (Auto) (0.1-0.6) Eos # (Auto) (0.0-0.7) Baso # (Auto) (0.0-2.0) K/mm3 APTT 77.1 H (25.1-36.5) Seconds Sodium 142 (132-148) mmol/L Potassium 3.7 (3.6-5.0) mmol/L Chloride 100 (98-107) mmol/L Carbon Dioxide 29 (21-33) mmol/L Anion Gap 17 (10-20) BUN 47 H (7-21) mg/dL Creatinine 2.1 H (0.7-1.2) mg/dl Est GFR ( Amer) 30 Est GFR (Non-Af Amer) 25 POC Glucose (mg/dL) 120 H (65-110) mg/dL Random Glucose 137 H (70-110) mg/dL Calcium 8.4 (8.4-10.5) mg/dL Phosphorus 4.0 (2.5-4.5) mg/dL Magnesium 2.0 (1.7-2.2) mg/dL Total Bilirubin 0.8 (0.2-1.3) mg/dL AST 32 (14-36) U/L ALT 37 (7-56) U/L Alkaline Phosphatase 56 (38-126) U/L Total Creatine Kinase (35-230) U/L Troponin I 1.44 H* ng/mL NT-Pro-B Natriuret Pep (0-450) pg/mL Total Protein 7.0 (5.8-8.3) g/dL Albumin 3.7 (3.0-4.8) g/dL Globulin 3.3 gm/dL Albumin/Globulin Ratio 1.1 (1.1-1.8) 25-OH Vitamin D Total (30.0-100.0) NG/ML Urine Color (YELLOW) Urine Appearance (CLEAR) Urine pH (4.7-8.0) Ur Specific [place] (1.005-1.035) Urine Protein (<30 mg/dL) mg/dL Urine Glucose (UA) (NEGATIVE) mg/dL Urine Ketones (NEGATIVE) mg/dL Urine Blood (NEGATIVE) Urine Nitrate (NEGATIVE) Urine Bilirubin (NEGATIVE) Urine Urobilinogen (<1 E.U./dL) E.U./dL Ur Leukocyte Esterase (NEGATIVE) Joseph/uL Ur Random Sodium meq/L Ur Random Potassium meq/L Ur Random Urea Nitrogn mg/dL 09/30/17 09/30/17 09/30/17 Range/Units 05:00 00:40 00:40 WBC 7.5 D (4.5-11.0) 10^3/ul RBC 4.22 (3.5-6.1) 10^6/uL Hgb 10.3 L (12.0-16.0) g/dL Hct 32.9 L (36.0-48.0) % MCV 78.0 L (80.0-105.0) fl MCH 24.4 L (25.0-35.0) pg MCHC 31.3 (31.0-37.0) g/dl RDW 15.1 H (11.5-14.5) % Plt Count 217 (120.0-450.0) 10^3/uL MPV 11.0 (7.0-11.0) fl Gran % 76.1 H (50.0-68.0) % Lymph % (Auto) 16.2 L (22.0-35.0) % [place] % (Auto) 4.1 (1.0-6.0) % Eos % (Auto) 3.3 (1.5-5.0) % Baso % (Auto) 0.3 (0.0-3.0) % Gran # 5.72 (1.4-6.5) Lymph # (Auto) 1.2 (1.2-3.4) [place] # (Auto) 0.3 (0.1-0.6) Eos # (Auto) 0.3 (0.0-0.7) Baso # (Auto) 0.02 (0.0-2.0) K/mm3 APTT (25.1-36.5) Seconds Sodium (132-148) mmol/L Potassium (3.6-5.0) mmol/L Chloride (98-107) mmol/L Carbon Dioxide (21-33) mmol/L Anion Gap (10-20) BUN (7-21) mg/dL Creatinine (0.7-1.2) mg/dl Est GFR ( Amer) Est GFR (Non-Af Amer) POC Glucose (mg/dL) (65-110) mg/dL Random Glucose (70-110) mg/dL Calcium (8.4-10.5) mg/dL Phosphorus (2.5-4.5) mg/dL Magnesium (1.7-2.2) mg/dL Total Bilirubin (0.2-1.3) mg/dL AST (14-36) U/L ALT (7-56) U/L Alkaline Phosphatase (38-126) U/L Total Creatine Kinase (35-230) U/L Troponin I ng/mL NT-Pro-B Natriuret Pep (0-450) pg/mL Total Protein (5.8-8.3) g/dL Albumin (3.0-4.8) g/dL Globulin gm/dL Albumin/Globulin Ratio (1.1-1.8) 25-OH Vitamin D Total (30.0-100.0) NG/ML Urine Color Yellow (YELLOW) Urine Appearance Clear (CLEAR) Urine pH 5.5 (4.7-8.0) Ur Specific [place] 1.020 (1.005-1.035) Urine Protein Negative (<30 mg/dL) mg/dL Urine Glucose (UA) Negative (NEGATIVE) mg/dL Urine Ketones Negative (NEGATIVE) mg/dL Urine Blood Negative (NEGATIVE) Urine Nitrate Negative (NEGATIVE) Urine Bilirubin Negative (NEGATIVE) Urine Urobilinogen 0.2 (<1 E.U./dL) E.U./dL Ur Leukocyte Esterase Negative (NEGATIVE) Joseph/uL Ur Random Sodium < 5 meq/L Ur Random Potassium 50.5 meq/L Ur Random Urea Nitrogn 1002 mg/dL 09/30/17 09/29/17 09/29/17 Range/Units 00:25 21:53 18:40 WBC 13.2 H D (4.5-11.0) 10^3/ul RBC 4.81 (3.5-6.1) 10^6/uL Hgb 12.1 D (12.0-16.0) g/dL Hct 38.4 (36.0-48.0) % MCV 79.8 L (80.0-105.0) fl MCH 25.2 (25.0-35.0) pg MCHC 31.5 (31.0-37.0) g/dl RDW 15.3 H (11.5-14.5) % Plt Count 295 (120.0-450.0) 10^3/uL MPV 11.4 H (7.0-11.0) fl Gran % (50.0-68.0) % Lymph % (Auto) (22.0-35.0) % [place] % (Auto) (1.0-6.0) % Eos % (Auto) (1.5-5.0) % Baso % (Auto) (0.0-3.0) % Gran # (1.4-6.5) Lymph # (Auto) (1.2-3.4) [place] # (Auto) (0.1-0.6) Eos # (Auto) (0.0-0.7) Baso # (Auto) (0.0-2.0) K/mm3 APTT (25.1-36.5) Seconds Sodium (132-148) mmol/L Potassium (3.6-5.0) mmol/L Chloride (98-107) mmol/L Carbon Dioxide (21-33) mmol/L Anion Gap (10-20) BUN (7-21) mg/dL Creatinine (0.7-1.2) mg/dl Est GFR ( Amer) Est GFR (Non-Af Amer) POC Glucose (mg/dL) 164 H (65-110) mg/dL Random Glucose (70-110) mg/dL Calcium (8.4-10.5) mg/dL Phosphorus (2.5-4.5) mg/dL Magnesium (1.7-2.2) mg/dL Total Bilirubin (0.2-1.3) mg/dL AST (14-36) U/L ALT (7-56) U/L Alkaline Phosphatase (38-126) U/L Total Creatine Kinase (35-230) U/L Troponin I 1.65 H* D ng/mL NT-Pro-B Natriuret Pep (0-450) pg/mL Total Protein (5.8-8.3) g/dL Albumin (3.0-4.8) g/dL Globulin gm/dL Albumin/Globulin Ratio (1.1-1.8) 25-OH Vitamin D Total (30.0-100.0) NG/ML Urine Color (YELLOW) Urine Appearance (CLEAR) Urine pH (4.7-8.0) Ur Specific [place] (1.005-1.035) Urine Protein (<30 mg/dL) mg/dL Urine Glucose (UA) (NEGATIVE) mg/dL Urine Ketones (NEGATIVE) mg/dL Urine Blood (NEGATIVE) Urine Nitrate (NEGATIVE) Urine Bilirubin (NEGATIVE) Urine Urobilinogen (<1 E.U./dL) E.U./dL Ur Leukocyte Esterase (NEGATIVE) Joseph/uL Ur Random Sodium meq/L Ur Random Potassium meq/L Ur Random Urea Nitrogn mg/dL 09/29/17 09/29/17 Range/Units 18:12 08:00 WBC (4.5-11.0) 10^3/ul RBC (3.5-6.1) 10^6/uL Hgb (12.0-16.0) g/dL Hct (36.0-48.0) % MCV (80.0-105.0) fl MCH (25.0-35.0) pg MCHC (31.0-37.0) g/dl RDW (11.5-14.5) % Plt Count (120.0-450.0) 10^3/uL MPV (7.0-11.0) fl Gran % (50.0-68.0) % Lymph % (Auto) (22.0-35.0) % [place] % (Auto) (1.0-6.0) % Eos % (Auto) (1.5-5.0) % Baso % (Auto) (0.0-3.0) % Gran # (1.4-6.5) Lymph # (Auto) (1.2-3.4) [place] # (Auto) (0.1-0.6) Eos # (Auto) (0.0-0.7) Baso # (Auto) (0.0-2.0) K/mm3 APTT (25.1-36.5) Seconds Sodium 143 (132-148) mmol/L Potassium 4.0 (3.6-5.0) mmol/L Chloride 100 (98-107) mmol/L Carbon Dioxide 23 (21-33) mmol/L Anion Gap 24 H (10-20) BUN 47 H (7-21) mg/dL Creatinine 2.3 H (0.7-1.2) mg/dl Est GFR ( Amer) 27 Est GFR (Non-Af Amer) 22 POC Glucose (mg/dL) (65-110) mg/dL Random Glucose 168 H (70-110) mg/dL Calcium 8.9 (8.4-10.5) mg/dL Phosphorus (2.5-4.5) mg/dL Magnesium (1.7-2.2) mg/dL Total Bilirubin 0.6 (0.2-1.3) mg/dL AST 32 (14-36) U/L ALT 28 (7-56) U/L Alkaline Phosphatase 76 (38-126) U/L Total Creatine Kinase 94 (35-230) U/L Troponin I 1.07 H* D ng/mL NT-Pro-B Natriuret Pep 91384 H (0-450) pg/mL Total Protein 8.0 (5.8-8.3) g/dL Albumin 4.4 (3.0-4.8) g/dL Globulin 3.7 gm/dL Albumin/Globulin Ratio 1.2 (1.1-1.8) 25-OH Vitamin D Total 28.6 L (30.0-100.0) NG/ML Urine Color (YELLOW) Urine Appearance (CLEAR) Urine pH (4.7-8.0) Ur Specific [place] (1.005-1.035) Urine Protein (<30 mg/dL) mg/dL Urine Glucose (UA) (NEGATIVE) mg/dL Urine Ketones (NEGATIVE) mg/dL Urine Blood (NEGATIVE) Urine Nitrate (NEGATIVE) Urine Bilirubin (NEGATIVE) Urine Urobilinogen (<1 E.U./dL) E.U./dL Ur Leukocyte Esterase (NEGATIVE) Joseph/uL Ur Random Sodium meq/L Ur Random Potassium meq/L Ur Random Urea Nitrogn mg/dL Laboratory Results - last 24 hr 09/29/17 09/29/17 09/29/17 08:00 18:12 18:40 WBC 13.2 H D RBC 4.81 Hgb 12.1 D Hct 38.4 MCV 79.8 L MCH 25.2 MCHC 31.5 RDW 15.3 H Plt Count 295 MPV 11.4 H Gran % Lymph % (Auto) [place] % (Auto) Eos % (Auto) Baso % (Auto) Gran # Lymph # (Auto) [place] # (Auto) Eos # (Auto) Baso # (Auto) APTT Sodium 143 Potassium 4.0 Chloride 100 Carbon Dioxide 23 Anion Gap 24 H BUN 47 H Creatinine 2.3 H Est GFR ( Amer) 27 Est GFR (Non-Af Amer) 22 POC Glucose (mg/dL) Random Glucose 168 H Calcium 8.9 Phosphorus Magnesium Total Bilirubin 0.6 AST 32 ALT 28 Alkaline Phosphatase 76 Total Creatine Kinase 94 Troponin I 1.07 H* D NT-Pro-B Natriuret Pep 74801 H Total Protein 8.0 Albumin 4.4 Globulin 3.7 Albumin/Globulin Ratio 1.2 25-OH Vitamin D Total 28.6 L Urine Color Urine Appearance Urine pH Ur Specific [place] Urine Protein Urine Glucose (UA) Urine Ketones Urine Blood Urine Nitrate Urine Bilirubin Urine Urobilinogen Ur Leukocyte Esterase Ur Random Sodium Ur Random Potassium Ur Random Urea Nitrogn 09/29/17 09/30/17 09/30/17 21:53 00:25 00:40 WBC RBC Hgb Hct MCV MCH MCHC RDW Plt Count MPV Gran % Lymph % (Auto) [place] % (Auto) Eos % (Auto) Baso % (Auto) Gran # Lymph # (Auto) [place] # (Auto) Eos # (Auto) Baso # (Auto) APTT Sodium Potassium Chloride Carbon Dioxide Anion Gap BUN Creatinine Est GFR ( Amer) Est GFR (Non-Af Amer) POC Glucose (mg/dL) 164 H Random Glucose Calcium Phosphorus Magnesium Total Bilirubin AST ALT Alkaline Phosphatase Total Creatine Kinase Troponin I 1.65 H* D NT-Pro-B Natriuret Pep Total Protein Albumin Globulin Albumin/Globulin Ratio 25-OH Vitamin D Total Urine Color Urine Appearance Urine pH Ur Specific [place] Urine Protein Urine Glucose (UA) Urine Ketones Urine Blood Urine Nitrate Urine Bilirubin Urine Urobilinogen Ur Leukocyte Esterase Ur Random Sodium < 5 Ur Random Potassium 50.5 Ur Random Urea Nitrogn 1002 09/30/17 09/30/17 09/30/17 00:40 05:00 05:00 WBC 7.5 D RBC 4.22 Hgb 10.3 L Hct 32.9 L MCV 78.0 L MCH 24.4 L MCHC 31.3 RDW 15.1 H Plt Count 217 MPV 11.0 Gran % 76.1 H Lymph % (Auto) 16.2 L [place] % (Auto) 4.1 Eos % (Auto) 3.3 Baso % (Auto) 0.3 Gran # 5.72 Lymph # (Auto) 1.2 [place] # (Auto) 0.3 Eos # (Auto) 0.3 Baso # (Auto) 0.02 APTT Sodium 142 Potassium 3.7 Chloride 100 Carbon Dioxide 29 Anion Gap 17 BUN 47 H Creatinine 2.1 H Est GFR ( Amer) 30 Est GFR (Non-Af Amer) 25 POC Glucose (mg/dL) Random Glucose 137 H Calcium 8.4 Phosphorus 4.0 Magnesium 2.0 Total Bilirubin 0.8 AST 32 ALT 37 Alkaline Phosphatase 56 Total Creatine Kinase Troponin I 1.44 H* NT-Pro-B Natriuret Pep Total Protein 7.0 Albumin 3.7 Globulin 3.3 Albumin/Globulin Ratio 1.1 25-OH Vitamin D Total Urine Color Yellow Urine Appearance Clear Urine pH 5.5 Ur Specific [place] 1.020 Urine Protein Negative Urine Glucose (UA) Negative Urine Ketones Negative Urine Blood Negative Urine Nitrate Negative Urine Bilirubin Negative Urine Urobilinogen 0.2 Ur Leukocyte Esterase Negative Ur Random Sodium Ur Random Potassium Ur Random Urea Nitrogn 09/30/17 09/30/17 05:00 07:47 WBC RBC Hgb Hct MCV MCH MCHC RDW Plt Count MPV Gran % Lymph % (Auto) [place] % (Auto) Eos % (Auto) Baso % (Auto) Gran # Lymph # (Auto) [place] # (Auto) Eos # (Auto) Baso # (Auto) APTT 77.1 H Sodium Potassium Chloride Carbon Dioxide Anion Gap BUN Creatinine Est GFR ( Amer) Est GFR (Non-Af Amer) POC Glucose (mg/dL) 120 H Random Glucose Calcium Phosphorus Magnesium Total Bilirubin AST ALT Alkaline Phosphatase Total Creatine Kinase Troponin I NT-Pro-B Natriuret Pep Total Protein Albumin Globulin Albumin/Globulin Ratio 25-OH Vitamin D Total Urine Color Urine Appearance Urine pH Ur Specific [place] Urine Protein Urine Glucose (UA) Urine Ketones Urine Blood Urine Nitrate Urine Bilirubin Urine Urobilinogen Ur Leukocyte Esterase Ur Random Sodium Ur Random Potassium Ur Random Urea Nitrogn EKG/Cardiology Studies: Cardiology / EKG Studies 09/29/17 17:26 EKG [ELECTROCARDIOGRAM] Stat Comment: Reason For Exam: chest pressure Fingerstick Blood Sugar Results: 120 Critical Care Progress Note - Nutrition Nutrition: Nutrition Category Date Time Status Heart Healthy Diet [DIET] Diets 09/27/17 Dinner Ordered Assessment/Plan - Assessment and Plan (Free Text) Assessment: 52 year old female with a PMH of HTN, AVR w/ mechanical valve and DM who presented to the [facility] ER with the complaints of midsternal chest tightness along with an episode of nausea and vomiting, found to have an NSTEMI who then developed flash pulmonary edema likely from acute decompensated heart failure 2/ 2 NSTEMI on the medical floor and was transferred to the ICU. Plan: Neurologic AAOx4, nonfocal, no deficits On aricept for "sleep" Cardiovascular NSTEMI on heparin gtt Cont medical optimization w/ asa, lipitor, plavix, toprol xl Cardio following, plan is for cardiac cath at [facility] on Sunday 10/01 Daily weights Strict Is and Os Pulmonary CXR reviewed personally as well as read reviewed, still showing pulmonary edema Cont BIPAP prn and hs Cont lasix 40mg ivp bid Maintain spO2 > 92% Gastrointestinal No acute issues HHD Renal/electrolytes Following BUN and Cr closely, some ARLEN on CKD likely 2/2 NSTEMI with decrease in CO Avoid nephrotoxic drugs Monitoring electrolytes Nephro consulted, recs appreciated Cont strict Is and Os Endocrine Cont accucheck and RISS Maintain euglycemia GI/DVT ppx: PTX/on heparin gtt Patient was seen and examined and case was discussed at length with attending physician. - Date & Time Date: 09/30/17 Time: 07:30 <Sam Magallon - Last Filed: 09/30/17 13:56> CCU Objective - Vital Signs / Intake & Output Vital Signs (Last 4 hours): Vital Signs Pulse Resp BP Pulse Ox 09/30/17 13:40 111 H 31 H 95 09/30/17 13:30 109 H 37 H 97 2018 13:20 100 H 25 H 98 09/30/17 13:10 101 H 22 98 09/30/17 13:00 99 H 29 H 97/41 L 99 09/30/17 12:50 99 H 35 H 99 18 12:44 103 H 33 H 92/43 L 97 09/30/17 12:40 99 H 27 H 97 09/30/17 12:30 102 H 32 H 97 18 12:20 121 H 24 90 L 09/30/17 12:10 116 H 22 09/30/17 12:00 101 H 34 H 89/38 L 97 09/30/17 11:50 101 H 33 H 96 09/30/17 11:40 104 H 33 H 95 09/30/17 11:33 117 H 40 H 100/66 92 L 09/30/17 11:30 112 H 39 H 96 09/30/17 11:20 99 H 30 H 95 09/30/17 11:16 85/58 L 09/30/17 11:15 103 H 36 H 95 18 11:10 105 H 36 H 94 L 18 11:00 108 H 89/57 L 95 09/30/17 10:59 98/53 L 09/30/17 10:58 108 H 98/53 L 18 10:50 107 H 36 H 96 18 10:40 101 H 35 H 96 18 10:30 105 H 38 H 96 09/30/17 10:20 100 H 35 H 96 18 10:10 106 H 40 H 96 18 10:00 108 H 40 H 98/53 L 97 Intake and Output (Last 8hrs): Intake & Output 09/29/1718 09/30/17 22:59 06:59 14:59 Intake Total 120 40 41 Output Total 550 Balance 120 -510 41 Intake: IV 120 40 41 Right Forearm 40 Output: Urine 550 Urethral (Brooks) 550 Stool 0 - Medications Active Medications: Active Medications Generic Name Dose Route Start Last Admin Trade Name Freq PRN Reason Stop Dose Admin Aspirin 81 mg 09/27/17 10:00 09/30/17 10:59 Ecotrin PO 81 mg DAILY HASEEB Administration Atorvastatin Calcium 40 mg 09/27/17 17:00 09/29/17 17:09 Lipitor PO 40 mg DIN HASEEB Administration Clopidogrel Bisulfate 75 mg 10/01/17 10:00 09/30/17 10:57 Plavix PO 75 mg DAILY HASEEB Administration Furosemide 40 mg 09/30/17 10:30 09/30/17 11:07 Lasix IVP Not Given Q8H HASEEB Heparin Sodium/Sodium Chloride 25,000 units in 250 mls @ 10.668 mls/hr 11:45 09/30/17 07:58 Heparin 56182 Units/250ml 1/2 Normal Saline IV 10/01/17 04:00 4.16 units/kg /hr .[id number] HASEEB 3.7 mls/hr Protocol Titration 12 UNITS/KG/HR Insulin Human Lispro 0 units 09/27/17 07:30 09/30/17 11:20 Humalog Low SC Not Given ACHS [facility] Protocol Metoprolol Succinate 25 mg 09/29/17 07:33 09/30/17 10:58 Toprol Xl PO Not Given BID [facility] Oxycodone/Acetaminophen 1 tab 09/29/17 11:42 Percocet 2.5/325 Mg Tab PO Q6H PRN Pain, Mild (1-3) Pantoprazole Sodium 40 mg 09/30/17 06:00 09/30/17 06:12 Protonix Ec Tab PO 40 mg 0600 HASEEB Administration - Patient Studies Lab Studies: Lab Studies 09/30/17 09/30/17 09/30/17 Range/Units 11:15 07:47 05:00 WBC (4.5-11.0) 10^3/ul RBC (3.5-6.1) 10^6/uL Hgb (12.0-16.0) g/dL Hct (36.0-48.0) % MCV (80.0-105.0) fl MCH (25.0-35.0) pg MCHC (31.0-37.0) g/dl RDW (11.5-14.5) % Plt Count (120.0-450.0) 10^3/uL MPV (7.0-11.0) fl Gran % (50.0-68.0) % Lymph % (Auto) (22.0-35.0) % [place] % (Auto) (1.0-6.0) % Eos % (Auto) (1.5-5.0) % Baso % (Auto) (0.0-3.0) % Gran # (1.4-6.5) Lymph # (Auto) (1.2-3.4) [place] # (Auto) (0.1-0.6) Eos # (Auto) (0.0-0.7) Baso # (Auto) (0.0-2.0) K/mm3 APTT 77.1 H (25.1-36.5) Seconds Sodium (132-148) mmol/L Potassium (3.6-5.0) mmol/L Chloride (98-107) mmol/L Carbon Dioxide (21-33) mmol/L Anion Gap (10-20) BUN (7-21) mg/dL Creatinine (0.7-1.2) mg/dl Est GFR ( Amer) Est GFR (Non-Af Amer) POC Glucose (mg/dL) 130 H 120 H (65-110) mg/dL Random Glucose (70-110) mg/dL Calcium (8.4-10.5) mg/dL Phosphorus (2.5-4.5) mg/dL Magnesium (1.7-2.2) mg/dL Total Bilirubin (0.2-1.3) mg/dL AST (14-36) U/L ALT (7-56) U/L Alkaline Phosphatase (38-126) U/L Total Creatine Kinase (35-230) U/L Troponin I ng/mL NT-Pro-B Natriuret Pep (0-450) pg/mL Total Protein (5.8-8.3) g/dL Albumin (3.0-4.8) g/dL Globulin gm/dL Albumin/Globulin Ratio (1.1-1.8) Urine Color (YELLOW) Urine Appearance (CLEAR) Urine pH (4.7-8.0) Ur Specific [place] (1.005-1.035) Urine Protein (<30 mg/dL) mg/dL Urine Glucose (UA) (NEGATIVE) mg/dL Urine Ketones (NEGATIVE) mg/dL Urine Blood (NEGATIVE) Urine Nitrate (NEGATIVE) Urine Bilirubin (NEGATIVE) Urine Urobilinogen (<1 E.U./dL) E.U./dL Ur Leukocyte Esterase (NEGATIVE) Joseph/uL Ur Random Sodium meq/L Ur Random Potassium meq/L Ur Random Urea Nitrogn mg/dL 09/30/17 09/30/17 09/30/17 Range/Units 05:00 05:00 00:40 WBC 7.5 D (4.5-11.0) 10^3/ul RBC 4.22 (3.5-6.1) 10^6/uL Hgb 10.3 L (12.0-16.0) g/dL Hct 32.9 L (36.0-48.0) % MCV 78.0 L (80.0-105.0) fl MCH 24.4 L (25.0-35.0) pg MCHC 31.3 (31.0-37.0) g/dl RDW 15.1 H (11.5-14.5) % Plt Count 217 (120.0-450.0) 10^3/uL MPV 11.0 (7.0-11.0) fl Gran % 76.1 H (50.0-68.0) % Lymph % (Auto) 16.2 L (22.0-35.0) % [place] % (Auto) 4.1 (1.0-6.0) % Eos % (Auto) 3.3 (1.5-5.0) % Baso % (Auto) 0.3 (0.0-3.0) % Gran # 5.72 (1.4-6.5) Lymph # (Auto) 1.2 (1.2-3.4) [place] # (Auto) 0.3 (0.1-0.6) Eos # (Auto) 0.3 (0.0-0.7) Baso # (Auto) 0.02 (0.0-2.0) K/mm3 APTT (25.1-36.5) Seconds Sodium 142 (132-148) mmol/L Potassium 3.7 (3.6-5.0) mmol/L Chloride 100 (98-107) mmol/L Carbon Dioxide 29 (21-33) mmol/L Anion Gap 17 (10-20) BUN 47 H (7-21) mg/dL Creatinine 2.1 H (0.7-1.2) mg/dl Est GFR ( Amer) 30 Est GFR (Non-Af Amer) 25 POC Glucose (mg/dL) (65-110) mg/dL Random Glucose 137 H (70-110) mg/dL Calcium 8.4 (8.4-10.5) mg/dL Phosphorus 4.0 (2.5-4.5) mg/dL Magnesium 2.0 (1.7-2.2) mg/dL Total Bilirubin 0.8 (0.2-1.3) mg/dL AST 32 (14-36) U/L ALT 37 (7-56) U/L Alkaline Phosphatase 56 (38-126) U/L Total Creatine Kinase (35-230) U/L Troponin I 1.44 H* ng/mL NT-Pro-B Natriuret Pep (0-450) pg/mL Total Protein 7.0 (5.8-8.3) g/dL Albumin 3.7 (3.0-4.8) g/dL Globulin 3.3 gm/dL Albumin/Globulin Ratio 1.1 (1.1-1.8) Urine Color Yellow (YELLOW) Urine Appearance Clear (CLEAR) Urine pH 5.5 (4.7-8.0) Ur Specific [place] 1.020 (1.005-1.035) Urine Protein Negative (<30 mg/dL) mg/dL Urine Glucose (UA) Negative (NEGATIVE) mg/dL Urine Ketones Negative (NEGATIVE) mg/dL Urine Blood Negative (NEGATIVE) Urine Nitrate Negative (NEGATIVE) Urine Bilirubin Negative (NEGATIVE) Urine Urobilinogen 0.2 (<1 E.U./dL) E.U./dL Ur Leukocyte Esterase Negative (NEGATIVE) Joseph/uL Ur Random Sodium meq/L Ur Random Potassium meq/L Ur Random Urea Nitrogn mg/dL 09/30/17 09/30/17 09/29/17 Range/Units 00:40 00:25 21:53 WBC (4.5-11.0) 10^3/ul RBC (3.5-6.1) 10^6/uL Hgb (12.0-16.0) g/dL Hct (36.0-48.0) % MCV (80.0-105.0) fl MCH (25.0-35.0) pg MCHC (31.0-37.0) g/dl RDW (11.5-14.5) % Plt Count (120.0-450.0) 10^3/uL MPV (7.0-11.0) fl Gran % (50.0-68.0) % Lymph % (Auto) (22.0-35.0) % [place] % (Auto) (1.0-6.0) % Eos % (Auto) (1.5-5.0) % Baso % (Auto) (0.0-3.0) % Gran # (1.4-6.5) Lymph # (Auto) (1.2-3.4) [place] # (Auto) (0.1-0.6) Eos # (Auto) (0.0-0.7) Baso # (Auto) (0.0-2.0) K/mm3 APTT (25.1-36.5) Seconds Sodium (132-148) mmol/L Potassium (3.6-5.0) mmol/L Chloride (98-107) mmol/L Carbon Dioxide (21-33) mmol/L Anion Gap (10-20) BUN (7-21) mg/dL Creatinine (0.7-1.2) mg/dl Est GFR ( Amer) Est GFR (Non-Af Amer) POC Glucose (mg/dL) 164 H (65-110) mg/dL Random Glucose (70-110) mg/dL Calcium (8.4-10.5) mg/dL Phosphorus (2.5-4.5) mg/dL Magnesium (1.7-2.2) mg/dL Total Bilirubin (0.2-1.3) mg/dL AST (14-36) U/L ALT (7-56) U/L Alkaline Phosphatase (38-126) U/L Total Creatine Kinase (35-230) U/L Troponin I 1.65 H* D ng/mL NT-Pro-B Natriuret Pep (0-450) pg/mL Total Protein (5.8-8.3) g/dL Albumin (3.0-4.8) g/dL Globulin gm/dL Albumin/Globulin Ratio (1.1-1.8) Urine Color (YELLOW) Urine Appearance (CLEAR) Urine pH (4.7-8.0) Ur Specific [place] (1.005-1.035) Urine Protein (<30 mg/dL) mg/dL Urine Glucose (UA) (NEGATIVE) mg/dL Urine Ketones (NEGATIVE) mg/dL Urine Blood (NEGATIVE) Urine Nitrate (NEGATIVE) Urine Bilirubin (NEGATIVE) Urine Urobilinogen (<1 E.U./dL) E.U./dL Ur Leukocyte Esterase (NEGATIVE) Joseph/uL Ur Random Sodium < 5 meq/L Ur Random Potassium 50.5 meq/L Ur Random Urea Nitrogn 1002 mg/dL 09/29/17 09/29/17 Range/Units 18:40 18:12 WBC 13.2 H D (4.5-11.0) 10^3/ul RBC 4.81 (3.5-6.1) 10^6/uL Hgb 12.1 D (12.0-16.0) g/dL Hct 38.4 (36.0-48.0) % MCV 79.8 L (80.0-105.0) fl MCH 25.2 (25.0-35.0) pg MCHC 31.5 (31.0-37.0) g/dl RDW 15.3 H (11.5-14.5) % Plt Count 295 (120.0-450.0) 10^3/uL MPV 11.4 H (7.0-11.0) fl Gran % (50.0-68.0) % Lymph % (Auto) (22.0-35.0) % [place] % (Auto) (1.0-6.0) % Eos % (Auto) (1.5-5.0) % Baso % (Auto) (0.0-3.0) % Gran # (1.4-6.5) Lymph # (Auto) (1.2-3.4) [place] # (Auto) (0.1-0.6) Eos # (Auto) (0.0-0.7) Baso # (Auto) (0.0-2.0) K/mm3 APTT (25.1-36.5) Seconds Sodium 143 (132-148) mmol/L Potassium 4.0 (3.6-5.0) mmol/L Chloride 100 (98-107) mmol/L Carbon Dioxide 23 (21-33) mmol/L Anion Gap 24 H (10-20) BUN 47 H (7-21) mg/dL Creatinine 2.3 H (0.7-1.2) mg/dl Est GFR ( Amer) 27 Est GFR (Non-Af Amer) 22 POC Glucose (mg/dL) (65-110) mg/dL Random Glucose 168 H (70-110) mg/dL Calcium 8.9 (8.4-10.5) mg/dL Phosphorus (2.5-4.5) mg/dL Magnesium (1.7-2.2) mg/dL Total Bilirubin 0.6 (0.2-1.3) mg/dL AST 32 (14-36) U/L ALT 28 (7-56) U/L Alkaline Phosphatase 76 (38-126) U/L Total Creatine Kinase 94 (35-230) U/L Troponin I 1.07 H* D ng/mL NT-Pro-B Natriuret Pep 65601 H (0-450) pg/mL Total Protein 8.0 (5.8-8.3) g/dL Albumin 4.4 (3.0-4.8) g/dL Globulin 3.7 gm/dL Albumin/Globulin Ratio 1.2 (1.1-1.8) Urine Color (YELLOW) Urine Appearance (CLEAR) Urine pH (4.7-8.0) Ur Specific [place] (1.005-1.035) Urine Protein (<30 mg/dL) mg/dL Urine Glucose (UA) (NEGATIVE) mg/dL Urine Ketones (NEGATIVE) mg/dL Urine Blood (NEGATIVE) Urine Nitrate (NEGATIVE) Urine Bilirubin (NEGATIVE) Urine Urobilinogen (<1 E.U./dL) E.U./dL Ur Leukocyte Esterase (NEGATIVE) Joseph/uL Ur Random Sodium meq/L Ur Random Potassium meq/L Ur Random Urea Nitrogn mg/dL Laboratory Results - last 24 hr 09/29/17 09/29/17 09/29/17 18:12 18:40 21:53 WBC 13.2 H D RBC 4.81 Hgb 12.1 D Hct 38.4 MCV 79.8 L MCH 25.2 MCHC 31.5 RDW 15.3 H Plt Count 295 MPV 11.4 H Gran % Lymph % (Auto) [place] % (Auto) Eos % (Auto) Baso % (Auto) Gran # Lymph # (Auto) [place] # (Auto) Eos # (Auto) Baso # (Auto) APTT Sodium 143 Potassium 4.0 Chloride 100 Carbon Dioxide 23 Anion Gap 24 H BUN 47 H Creatinine 2.3 H Est GFR ( Amer) 27 Est GFR (Non-Af Amer) 22 POC Glucose (mg/dL) 164 H Random Glucose 168 H Calcium 8.9 Phosphorus Magnesium Total Bilirubin 0.6 AST 32 ALT 28 Alkaline Phosphatase 76 Total Creatine Kinase 94 Troponin I 1.07 H* D NT-Pro-B Natriuret Pep 57014 H Total Protein 8.0 Albumin 4.4 Globulin 3.7 Albumin/Globulin Ratio 1.2 Urine Color Urine Appearance Urine pH Ur Specific [place] Urine Protein Urine Glucose (UA) Urine Ketones Urine Blood Urine Nitrate Urine Bilirubin Urine Urobilinogen Ur Leukocyte Esterase Ur Random Sodium Ur Random Potassium Ur Random Urea Nitrogn 09/30/17 09/30/17 09/30/17 00:25 00:40 00:40 WBC RBC Hgb Hct MCV MCH MCHC RDW Plt Count MPV Gran % Lymph % (Auto) [place] % (Auto) Eos % (Auto) Baso % (Auto) Gran # Lymph # (Auto) [place] # (Auto) Eos # (Auto) Baso # (Auto) APTT Sodium Potassium Chloride Carbon Dioxide Anion Gap BUN Creatinine Est GFR ( Amer) Est GFR (Non-Af Amer) POC Glucose (mg/dL) Random Glucose Calcium Phosphorus Magnesium Total Bilirubin AST ALT Alkaline Phosphatase Total Creatine Kinase Troponin I 1.65 H* D NT-Pro-B Natriuret Pep Total Protein Albumin Globulin Albumin/Globulin Ratio Urine Color Yellow Urine Appearance Clear Urine pH 5.5 Ur Specific [place] 1.020 Urine Protein Negative Urine Glucose (UA) Negative Urine Ketones Negative Urine Blood Negative Urine Nitrate Negative Urine Bilirubin Negative Urine Urobilinogen 0.2 Ur Leukocyte Esterase Negative Ur Random Sodium < 5 Ur Random Potassium 50.5 Ur Random Urea Nitrogn 1002 09/30/17 09/30/17 09/30/17 05:00 05:00 05:00 WBC 7.5 D RBC 4.22 Hgb 10.3 L Hct 32.9 L MCV 78.0 L MCH 24.4 L MCHC 31.3 RDW 15.1 H Plt Count 217 MPV 11.0 Gran % 76.1 H Lymph % (Auto) 16.2 L [place] % (Auto) 4.1 Eos % (Auto) 3.3 Baso % (Auto) 0.3 Gran # 5.72 Lymph # (Auto) 1.2 [place] # (Auto) 0.3 Eos # (Auto) 0.3 Baso # (Auto) 0.02 APTT 77.1 H Sodium 142 Potassium 3.7 Chloride 100 Carbon Dioxide 29 Anion Gap 17 BUN 47 H Creatinine 2.1 H Est GFR ( Amer) 30 Est GFR (Non-Af Amer) 25 POC Glucose (mg/dL) Random Glucose 137 H Calcium 8.4 Phosphorus 4.0 Magnesium 2.0 Total Bilirubin 0.8 AST 32 ALT 37 Alkaline Phosphatase 56 Total Creatine Kinase Troponin I 1.44 H* NT-Pro-B Natriuret Pep Total Protein 7.0 Albumin 3.7 Globulin 3.3 Albumin/Globulin Ratio 1.1 Urine Color Urine Appearance Urine pH Ur Specific [place] Urine Protein Urine Glucose (UA) Urine Ketones Urine Blood Urine Nitrate Urine Bilirubin Urine Urobilinogen Ur Leukocyte Esterase Ur Random Sodium Ur Random Potassium Ur Random Urea Nitrogn 09/30/17 09/30/17 07:47 11:15 WBC RBC Hgb Hct MCV MCH MCHC RDW Plt Count MPV Gran % Lymph % (Auto) [place] % (Auto) Eos % (Auto) Baso % (Auto) Gran # Lymph # (Auto) [place] # (Auto) Eos # (Auto) Baso # (Auto) APTT Sodium Potassium Chloride Carbon Dioxide Anion Gap BUN Creatinine Est GFR ( Amer) Est GFR (Non-Af Amer) POC Glucose (mg/dL) 120 H 130 H Random Glucose Calcium Phosphorus Magnesium Total Bilirubin AST ALT Alkaline Phosphatase Total Creatine Kinase Troponin I NT-Pro-B Natriuret Pep Total Protein Albumin Globulin Albumin/Globulin Ratio Urine Color Urine Appearance Urine pH Ur Specific [place] Urine Protein Urine Glucose (UA) Urine Ketones Urine Blood Urine Nitrate Urine Bilirubin Urine Urobilinogen Ur Leukocyte Esterase Ur Random Sodium Ur Random Potassium Ur Random Urea Nitrogn EKG/Cardiology Studies: Cardiology / EKG Studies 09/29/17 17:26 EKG [ELECTROCARDIOGRAM] Stat Comment: Reason For Exam: chest pressure Critical Care Progress Note - Nutrition Nutrition: Nutrition Category Date Time Status Heart Healthy Diet [DIET] Diets 09/27/17 Dinner Ordered Attending/Attestation - Attestation I have personally seen and examined this patient.: Yes I have fully participated in the care of the patient.: Yes I have reviewed all pertinent clinical information: Yes Notes (Text): 09/30/17 13:52 52 yo female with ACS/NSTEMI on DAP, bb, statins, TAC. For PCI on Sunday. Still on BPAP for flash pulmonary edema, on lasix. ARLEN is improving ccm time 40 min
--- NOTE | 2017-09-30 13:11 | CARD ---
APPROVED REPORT EKG Measurement Heart [id number] <Conclusion> Sinus tachycardia Septal infarct, age undetermined Marked ST abnormality, possible inferolateral subendocardial injury Abnormal ECG
[2017-09-30] MEDS ORDERED: Etomidate 20 mg/10ml Inj IV ONE (15:03)
[2017-09-30] MEDS ORDERED: Propofol 10 mg/ml Inj (20 ML) ONE (15:04)
[2017-09-30] MEDS ORDERED: NOREPINEPHRINE BIT/0.9 % NACL 4 MG/250 ML BAG IV ONE (15:05)
[2017-09-30] MEDS ORDERED: Propofol 10 mg/ml 1,000 MG/100 ML VIAL ONE (15:28)
[2017-09-30] MEDS ORDERED: DOBUTamine 500mg/250ml D5W 500 MG/250 ML BAG ONE (15:36)
[2017-09-30] MEDS ORDERED: Lidocaine 2% Inj (20ml) ONE (16:01)
[2017-09-30] MEDS ORDERED: Phenylephrine 10 mg/ml Inj ONE (16:01)
[2017-09-30] MEDS ORDERED: Iodixanol 320 MG/ML 100 ML BOTTLE IV ONE (16:02)
[2017-09-30] MEDS ORDERED: Iodixanol 320 MG/ML 200 ML BOTTLE IV ONE (16:02)
[2017-09-30] MEDS ORDERED: Iohexol 350mgl/ml 50 ML ONE (16:02)
[2017-09-30] MEDS ORDERED: Nitroglycerin 50mg in D5W 0 MG/0 ML BOTTLE IV ONE (16:02)
[2017-09-30] MEDS ORDERED: Midazolam 2 MG/2 ML VIAL ONE (16:02)
[2017-09-30] MEDS ORDERED: EPINEPHrine- 1 MG in Sodium Chloride 0.9% 250 ML IV ONE (17:00)
--- NOTE | 2017-09-30 17:26 | RAD ---
HISTORY: ETT placement COMPARISON: September 30, 2017. Time of the most recent examination: 06:01 FINDINGS: LUNGS: Worsening pulmonary edema with more confluent findings in the right upper lobe. PLEURA: Resume bilateral pleural effusions. No significant interval change compared to the prior examination(s). CARDIOVASCULAR: Cardiomegaly/congestive heart failure. Valvular prosthesis again identified. OSSEOUS STRUCTURES: No significant abnormalities. VISUALIZED UPPER ABDOMEN: Normal. OTHER FINDINGS: Satisfactory position of recently placed endotracheal tube and feeding tube/nasogastric tube IMPRESSION: Worsening pulmonary edema. Satisfactory position of recently placed support apparatus.
--- NOTE | 2017-09-30 17:41 | CP.PCM.PRO ---
Pronouncement of Note - Clinical Findings Physical Exam: No Response Verbal/Painful Stimuli, Absent Peripheral Pulses{ Carotid & Femoral}, Absent Heart & Breath Sounds, No Pupillary Light Reflex, No Corneal Reflex, Pupils Fixed & Dilated, Absence of Vital Signs - Pronouncement Time Time of Pronouncement of : 17:20 - Notifications Pronouncement Notifications: Family Notified, Atending Notified Process Chemist Notified: Yes [place] [id number]
--- NOTE | 2017-09-30 17:48 | CP.PCM.DIS ---
<Jorge Willson - Last Filed: 09/30/17 18:15> Provider - Provider Date of Admission: 09/27/17 04:50 Attending physician: Romel Sigala MD Primary care physician: Link Connors MD Consults: Dr. Puri Time Spent in preparation of Discharge (in minutes): 40 Diagnosis - Discharge Diagnosis (1) Flash pulmonary edema Status: Acute (2) Occlusion of left anterior descending (LAD) artery Status: Acute (3) Acute coronary syndrome Status: Acute (4) NSTEMI (non-ST elevated myocardial infarction) Status: Acute Hospital Course - Lab Results Lab Results: Most Recent Lab Values WBC 7.5 10^3/ul (4.5-11.0) D 09/30/17 05:00 RBC 4.22 10^6/uL (3.5-6.1) 09/30/17 05:00 Hgb 10.3 g/dL (12.0-16.0) L 09/30/17 05:00 Hct 32.9 % (36.0-48.0) L 09/30/17 05:00 MCV 78.0 fl (80.0-105.0) L 09/30/17 05:00 MCH 24.4 pg (25.0-35.0) L 09/30/17 05:00 MCHC 31.3 g/dl (31.0-37.0) 09/30/17 05:00 RDW 15.1 % (11.5-14.5) H 09/30/17 05:00 Plt Count 217 10^3/uL (120.0-450.0) 09/30/17 05:00 MPV 11.0 fl (7.0-11.0) 09/30/17 05:00 Gran % 76.1 % (50.0-68.0) H 09/30/17 05:00 Lymph % (Auto) 16.2 % (22.0-35.0) L 09/30/17 05:00 [place] % (Auto) 4.1 % (1.0-6.0) 09/30/17 05:00 Eos % (Auto) 3.3 % (1.5-5.0) 09/30/17 05:00 Baso % (Auto) 0.3 % (0.0-3.0) 09/30/17 05:00 Gran # 5.72 (1.4-6.5) 09/30/17 05:00 Lymph # (Auto) 1.2 (1.2-3.4) 09/30/17 05:00 [place] # (Auto) 0.3 (0.1-0.6) 09/30/17 05:00 Eos # (Auto) 0.3 (0.0-0.7) 09/30/17 05:00 Baso # (Auto) 0.02 K/mm3 (0.0-2.0) 09/30/17 05:00 PT 17.1 SECONDS (9.4-12.5) H 09/28/17 05:30 INR 1.48 (0.93-1.08) H 09/28/17 05:30 APTT 77.1 Seconds (25.1-36.5) H 09/30/17 05:00 Sodium 142 mmol/L (132-148) 09/30/17 05:00 Potassium 3.7 mmol/L (3.6-5.0) 09/30/17 05:00 Chloride 100 mmol/L (98-107) 09/30/17 05:00 Carbon Dioxide 29 mmol/L (21-33) 09/30/17 05:00 Anion Gap 17 (10-20) 09/30/17 05:00 BUN 47 mg/dL (7-21) H 09/30/17 05:00 Creatinine 2.1 mg/dl (0.7-1.2) H 09/30/17 05:00 Est GFR ( Amer) 30 09/30/17 05:00 Est GFR (Non-Af Amer) 25 09/30/17 05:00 POC Glucose (mg/dL) 243 mg/dL (65-110) H 09/30/17 16:06 Random Glucose 137 mg/dL (70-110) H 09/30/17 05:00 Hemoglobin A1c 5.9 % (4.2-6.5) 09/27/17 05:30 Calcium 8.4 mg/dL (8.4-10.5) 09/30/17 05:00 Phosphorus 4.0 mg/dL (2.5-4.5) 09/30/17 05:00 Magnesium 2.0 mg/dL (1.7-2.2) 09/30/17 05:00 Total Bilirubin 0.8 mg/dL (0.2-1.3) 09/30/17 05:00 AST 32 U/L (14-36) 09/30/17 05:00 ALT 37 U/L (7-56) 09/30/17 05:00 Alkaline Phosphatase 56 U/L (38-126) 09/30/17 05:00 Lactate Dehydrogenase 657 U/L (333-699) 09/27/17 14:57 Total Creatine Kinase 94 U/L (35-230) 09/29/17 18:12 Troponin I 1.44 ng/mL H* 09/30/17 05:00 NT-Pro-B Natriuret Pep 04811 pg/mL (0-450) H 09/29/17 18:12 Total Protein 7.0 g/dL (5.8-8.3) 09/30/17 05:00 Albumin 3.7 g/dL (3.0-4.8) 09/30/17 05:00 Globulin 3.3 gm/dL 09/30/17 05:00 Albumin/Globulin Ratio 1.1 (1.1-1.8) 09/30/17 05:00 Triglycerides 123 mg/dL (35-160) 09/27/17 05:30 Cholesterol 158 mg/dL (130-200) 09/27/17 05:30 LDL Cholesterol Direct 72 mg/dL (0-129) 09/27/17 05:30 HDL Cholesterol 49 mg/dL (29-60) 09/27/17 05:30 25-OH Vitamin D Total 28.6 NG/ML (30.0-100.0) L 09/29/17 08:00 TSH 3rd Generation 1.76 mIU/mL (0.46-4.68) 09/27/17 05:30 Urine Color Yellow (YELLOW) 09/30/17 00:40 Urine Appearance Clear (CLEAR) 09/30/17 00:40 Urine pH 5.5 (4.7-8.0) 09/30/17 00:40 Ur Specific [place] 1.020 (1.005-1.035) 09/30/17 00:40 Urine Protein Negative mg/dL (<30 mg/dL) 09/30/17 00:40 Urine Glucose (UA) Negative mg/dL (NEGATIVE) 09/30/17 00:40 Urine Ketones Negative mg/dL (NEGATIVE) 09/30/17 00:40 Urine Blood Negative (NEGATIVE) 09/30/17 00:40 Urine Nitrate Negative (NEGATIVE) 09/30/17 00:40 Urine Bilirubin Negative (NEGATIVE) 09/30/17 00:40 Urine Urobilinogen 0.2 E.U./dL (<1 E.U./dL) 09/30/17 00:40 Ur Leukocyte Esterase Negative Joseph/uL (NEGATIVE) 09/30/17 00:40 Ur Random Sodium < 5 meq/L 09/30/17 00:40 Ur Random Potassium 50.5 meq/L 09/30/17 00:40 Ur Random Urea Nitrogn 1002 mg/dL 09/30/17 00:40 - Hospital Course Hospital Course: 52 year old [place] female with a past medical history of hypertension, obesity , Diabetes, aortic valve replacement 8.5 years ago (on Coumadin)who presented with a complaint of a heachache followed by syncopal episode accompanied by a 15 -20 minute period of unresponsiveness. When she arouse from the syncopal episode she vomited and experienced mid-sternal chest tightness with associated shortness of breath. In the ED, CT of the head was interpreted as unremarkable while her initial EKG showed normal sinus rhythm, possible left atrial enlargement, anterior infarct, undetermined; marked ST abnormality, possible inferolateral subendocardial injury. Her initial troponins were elevated and continued to uptrend. Cardiology was consulted and recommended a heparin ggt and to treat the patient for a NSTEMI with plans to perform PTCA at [facility] given the patient had reportedly taken Aricept. According to those familiar with the matter, [facility] cardiac cardiac cath tech does not perform cardiac cathetherization on patients that have taken certain medications, including Aricept, that increase the risk of fatal arrhythmia, especially during cardiac catheterization. Therefore, it was decided to take the patient to [facility] on 10/01/2017 for a planned PTCA. While hospitalized at [facility], the patient underwent an echocardiogram that was interpreted as follows: showed the Left Ventricle is normal sized, mild concentric Left Ventricular Hypertrophy; systolic function mildly impaired; LVEF 45-50%; s/p mechanical Aortic valve replacement (not well visualized) with a high peak velocity and peak gradient of 119 mmHg; suggest GAETANO after PTCA , Mitral regurgitation is moderate; Mild to moderate tricuspid regurgitation RVSP 48 mmHg; Trace to mild pulmonic valvular regurgitation; no thrombus noted. On the evening of 09/29/2017, the patient developed acute-onset chest pain, dypnea, and a rapid response was called that showed the patient went into flash pulmonary edema with a doubling of her pro-BNP on admission. The patient was admitted to the Coronary Care Unit and started on fluids, vasopressors, and diuretics in addition to resuming her heparin drip, aspirin, plavix, B-paige. During the afternoon of 09/30/2017, the patient became short of breath. She was intubated and started on medications on Vasopressors, including, but not limited to, dobutamine, norepinephrine, and adrenaline. A code heart was called and the patient went through a few rounds of CPR, with times she had a pulse and other times she did not. Cardiology came and took the patient to the cardiac cath tech while intermittent CPR was performed. The patient's left anterior descending artery was noted to be completely occluded and her aortic valve was completely incompetent based on the left ventriculogram. She was pronounced . The family was counseled at the bedside. The fisher spear and the it coordinator spoke to them in detail regards to the patient's rapid deterioration. - Date & Time of H&P Date of H&P: 09/30/17 Time of H&P: 17:46 Discharge Exam - Head Exam Head Exam: ATRAUMATIC, NORMOCEPHALIC - Eye Exam Additional comments: see pronoucment for details Discharge Plan - Follow Up Plan Condition: Disposition: WITH WITHOUT AUTOPSY Referrals: Link Connors MD [Primary Care Provider] - <Romel Sigala - Last Filed: 10/01/17 16:03> Provider - Provider Date of Admission: 09/27/17 04:50 Attending physician: Romel Sigala MD Primary care physician: Link Connors MD Hospital Course - Lab Results Lab Results: Most Recent Lab Values WBC 7.5 10^3/ul (4.5-11.0) D 09/30/17 05:00 RBC 4.22 10^6/uL (3.5-6.1) 09/30/17 05:00 Hgb 10.3 g/dL (12.0-16.0) L 09/30/17 05:00 Hct 32.9 % (36.0-48.0) L 09/30/17 05:00 MCV 78.0 fl (80.0-105.0) L 09/30/17 05:00 MCH 24.4 pg (25.0-35.0) L 09/30/17 05:00 MCHC 31.3 g/dl (31.0-37.0) 09/30/17 05:00 RDW 15.1 % (11.5-14.5) H 09/30/17 05:00 Plt Count 217 10^3/uL (120.0-450.0) 09/30/17 05:00 MPV 11.0 fl (7.0-11.0) 09/30/17 05:00 Gran % 76.1 % (50.0-68.0) H 09/30/17 05:00 Lymph % (Auto) 16.2 % (22.0-35.0) L 09/30/17 05:00 [place] % (Auto) 4.1 % (1.0-6.0) 09/30/17 05:00 Eos % (Auto) 3.3 % (1.5-5.0) 09/30/17 05:00 Baso % (Auto) 0.3 % (0.0-3.0) 09/30/17 05:00 Gran # 5.72 (1.4-6.5) 09/30/17 05:00 Lymph # (Auto) 1.2 (1.2-3.4) 09/30/17 05:00 [place] # (Auto) 0.3 (0.1-0.6) 09/30/17 05:00 Eos # (Auto) 0.3 (0.0-0.7) 09/30/17 05:00 Baso # (Auto) 0.02 K/mm3 (0.0-2.0) 09/30/17 05:00 PT 17.1 SECONDS (9.4-12.5) H 09/28/17 05:30 INR 1.48 (0.93-1.08) H 09/28/17 05:30 APTT 77.1 Seconds (25.1-36.5) H 09/30/17 05:00 Sodium 142 mmol/L (132-148) 09/30/17 05:00 Potassium 3.7 mmol/L (3.6-5.0) 09/30/17 05:00 Chloride 100 mmol/L (98-107) 09/30/17 05:00 Carbon Dioxide 29 mmol/L (21-33) 09/30/17 05:00 Anion Gap 17 (10-20) 09/30/17 05:00 BUN 47 mg/dL (7-21) H 09/30/17 05:00 Creatinine 2.1 mg/dl (0.7-1.2) H 09/30/17 05:00 Est GFR ( Amer) 09/30/17 05:00 Est GFR (Non-Af Amer) 09/30/17 05:00 POC Glucose (mg/dL) 243 mg/dL (65-110) H 09/30/17 16:06 Random Glucose 137 mg/dL (70-110) H 09/30/17 05:00 Hemoglobin A1c 5.9 % (4.2-6.5) 09/27/17 05:30 Calcium 8.4 mg/dL (8.4-10.5) 09/30/17 05:00 Phosphorus 4.0 mg/dL (2.5-4.5) 09/30/17 05:00 Magnesium 2.0 mg/dL (1.7-2.2) 09/30/17 05:00 Total Bilirubin 0.8 mg/dL (0.2-1.3) 09/30/17 05:00 AST 32 U/L (14-36) 09/30/17 05:00 ALT 37 U/L (7-56) 09/30/17 05:00 Alkaline Phosphatase 56 U/L (38-126) 09/30/17 05:00 Lactate Dehydrogenase 657 U/L (333-699) 09/27/17 14:57 Total Creatine Kinase 94 U/L (35-230) 09/29/17 18:12 Troponin I 1.44 ng/mL H* 09/30/17 05:00 NT-Pro-B Natriuret Pep 52320 pg/mL (0-450) H 09/29/17 18:12 Total Protein 7.0 g/dL (5.8-8.3) 09/30/17 05:00 Albumin 3.7 g/dL (3.0-4.8) 09/30/17 05:00 Globulin 3.3 gm/dL 09/30/17 05:00 Albumin/Globulin Ratio 1.1 (1.1-1.8) 09/30/17 05:00 Triglycerides 123 mg/dL (35-160) 09/27/17 05:30 Cholesterol 158 mg/dL (130-200) 09/27/17 05:30 LDL Cholesterol Direct 72 mg/dL (0-129) 09/27/17 05:30 HDL Cholesterol 49 mg/dL (29-60) 09/27/17 05:30 25-OH Vitamin D Total 28.6 NG/ML (30.0-100.0) L 09/29/17 08:00 TSH 3rd Generation 1.76 mIU/mL (0.46-4.68) 09/27/17 05:30 Urine Color Yellow (YELLOW) 09/30/17 00:40 Urine Appearance Clear (CLEAR) 09/30/17 00:40 Urine pH 5.5 (4.7-8.0) 09/30/17 00:40 Ur Specific [place] 1.020 (1.005-1.035) 09/30/17 00:40 Urine Protein Negative mg/dL (<30 mg/dL) 09/30/17 00:40 Urine Glucose (UA) Negative mg/dL (NEGATIVE) 09/30/17 00:40 Urine Ketones Negative mg/dL (NEGATIVE) 09/30/17 00:40 Urine Blood Negative (NEGATIVE) 09/30/17 00:40 Urine Nitrate Negative (NEGATIVE) 09/30/17 00:40 Urine Bilirubin Negative (NEGATIVE) 09/30/17 00:40 Urine Urobilinogen 0.2 E.U./dL (<1 E.U./dL) 09/30/17 00:40 Ur Leukocyte Esterase Negative Joseph/uL (NEGATIVE) 09/30/17 00:40 Ur Random Sodium < 5 meq/L 09/30/17 00:40 Ur Random Potassium 50.5 meq/L 09/30/17 00:40 Ur Random Urea Nitrogn 1002 mg/dL 09/30/17 00:40 Attending/Attestation - Attestation I have personally seen and examined this patient.: Yes I have fully participated in the care of the patient.: Yes I have reviewed all pertinent clinical information, including history, physical exam and plan: Yes Notes (Text): 10/01/17 15:41 52 year old female with past medical history of hypertension, hyperlipidemia, diabetes, and SO Aortic valve replacement on Coumadin, was admitted with chest tightness and sob, found to have NSEMI, maximum troponin 3.01 and CHF exacerbation.Patient CHF improved initially however yesterday evening patient went into Pulmonary edema , was transferred to ICU,repeat troponins were showing down cedeno trend .Patient responded well to IV lasix and was tolerating BIPAP , she was also intermittently on nasal canula in the ICU.Patient was awaiting for scheduled cardiac catherization on Sunday at [facility] , however Patient condition deteriorated suddenly in afternoon of 2017, the patient went into respiratory distress and was intubated .Repeat Echo showed EF 20-30%.Patient also became hypotensive and was started on pressors.The decision was made to take put to cardiac cath tech for emergency cardiac catherization and IABP .While awaiting patient went into asystole and coded as per ACLS.Patient reviewed and was taken to cardiac cath tech.Patient was found to have severe AR by and Cardiology esteban and AIBP was discontinued.Lesion in LAD was also noted. Patient was losing pulse and was coded in cardiac cath tech as per ACLS protocol, several times before and after angio but attempt was unsuccessful.
[2017-09-30 18:34] VITALS: BP 104/73; PULSE 136; RESP 141; O2SAT 93
--- NOTE | 2017-09-30 20:25 | CARDCATH ---
PROCEDURE DATE: 09/30/2017 EMERGENCY CARDIAC CATHETERIZATION HISTORY: The patient is a 52-year-old woman who underwent multiple cardiac arrests beginning at 3 o'clock today. I have called by the ICU team to bring her in to the cook house laborer for an emergency procedure. The patient's past medical history is notable for history of aortic valve replacement and recent non-STEMI. In the ICU, the patient is undergoing CPR with chest compression. The patient was intubated. She transiently regained blood pressure and was brought to the cook house laborer. On arrival to the cook house laborer, the patient has a non-detectable blood pressure. CPR was restarted again. The right and left femoral arteries were accessed with 6-Greenlandic sheath. Intraarterial pressure was approximately 40 mm systolic, which was transient. A balloon pump was placed, in which we were able to increase blood pressure to approximately 50. Emergency coronary arteriography revealed RCA was a dominant vessel and unremarkable. The LAD was occluded in its midportion. The left main artery was unremarkable and the circumflex artery was free of significant disease. There was 4+ aortic insufficiency noted. The balloon pump was then turned off. Despite CPR, maximum inotropic therapy, and mechanical hemodynamic support, the patient never regained blood pressure. Eventually, the patient never regained her hemodynamic stability. Kin Paulson MD
--- NOTE | 2017-10-01 07:59 | OP ---
PROCEDURE DATE: 09/30/2017 PROCEDURE: Emergent endotracheal intubation. INDICATION: Hypoxemic respiratory failure due to cardiogenic pulmonary edema DESCRIPTION OF PROCEDURE: Patient was preoxygenated with Ambu bag/100% FiO2 for more than 5 minutes. Levophed was started prior to the procedure and bolus of 250 mL of fluid was also given. Initially 20 mg of etomidate given , but patient was clenching her jaws. Adequate access to airways acheived only after additional 100 mg of propofol (in incremental doses) Vital signs were monitored throughout procedure and blood pressure cycled every 1 minute. Direct laryngoscopy performed with MAC 3 curve blade. Vocal cords visualized and trachea intubated with 7.5 Khmer endotracheal tube at first attempt. Patient tolerated the procedure relatively well. Position was confirmed with gastric auscultation, bilateral lung auscultation and eventually a chest x-ray. Sam Magallon MD [facility]
--- NOTE | 2017-10-01 08:03 | PN ---
DATE: 09/30/2017 Patient was doing relatively well until midafternoon, tolerating some oral hydration and was able to communicate with relative ease with family and personnel on and off BPAP. After one of the "breaks" from BPAP, shortly after BPAP was put back on, she passed out and was found to be tachypneic and tachycardic, in some respiratory distress and labored breathing. Those changes in her clinic status were almost momentary and happened very fast. Decision to intubate was made quickly and the patient was endotracheally intubated. Patient continued to deteriorate and her blood pressure dropped down. Bedside (POC CC) Echo revealed decrease EF down to 20-30%, Levophed and Dobutamine were started, preparation for CVL placement initiated, heparin was stopped. Emergent call was made to Dr. Paulson (Cardiology) and decision was made to take patient to cardiac slab worker emergently for IABP. While awaiting for cardiac team to arrive, patient lost pulse and ACLS protocol was initiated. Patient regained spontaneous circulation and was emergently taken to cardiac slab worker, where attempt at putting balloon pump and angio was made by Dr. Paulson and Cardiology team, however severe aortic regurgitation ("wide open") was observed and AIBP was d/c-ed. Lesion in LAD was also seen. Of note Echocardiogram performed few days ago was read as "s/p mechanical AVR not well visualized" Patient was loosing its pulse and coding several times while in cardiac slab worker before during and after angio and ACLS protocol was being instituted each time as well. Attempt at regaining spontaneous circulation were continuous for more than an hour; however, were eventually unsuccessful. Assessment/Plan/Summary: Acute cardiogenic shock due to acute and severe (fulminant) AI, likely secondary to malfunction of mechanical valve in aortic position, leading to acute coronary insufficiency and myocardial ischemia, along with multiorgan system failure. Despite aggressive medicamentose treatment (propofol for afterload reduction, dobutamine for inotropic augmentation, levophed, epinephrine) patient did not achieve stability that otherwise would allow to consider transfer for CTS evaluation/AVR and eventually . Sam Magallon MD [facility] # [id number]
== END 2017-09-30 17:20 ==
LOC: ED 02:53 → ERH 04:50 → 2RSO 15:33 → CCU 09-29 18:31
PROVIDERS: ADMIT Internal Medicine; ATTEND Internal Medicine
PROC: 5A09357 Assistance with Respiratory Ventilation, Less than 24 Consecutive Hours, Continuous Positive Airway Pressure (ICD-10-PCS; 2017-09-29)
PROC: 4A023N7 Measurement of Cardiac Sampling and Pressure, Left Heart, Percutaneous Approach (ICD-10-PCS; principal; 2017-09-30)
PROC: B2111ZZ Fluoroscopy of Multiple Coronary Arteries using Low Osmolar Contrast (ICD-10-PCS; 2017-09-30)
PROC: 5A12012 Performance of Cardiac Output, Single, Manual (ICD-10-PCS; 2017-09-30)
PROC: 5A1935Z Respiratory Ventilation, Less than 24 Consecutive Hours (ICD-10-PCS; 2017-09-30)
PROC: 0BH18EZ Insertion of Endotracheal Airway into Trachea, Via Natural or Artificial Opening Endoscopic (ICD-10-PCS; 2017-09-30)
DX: I21.4 Non-ST elevation (NSTEMI) myocardial infarction (principal); J96.91 Respiratory failure, unspecified with hypoxia; N17.9 Acute kidney failure, unspecified; I13.0 Hypertensive heart and chronic kidney disease with heart failure and stage 1 through stage 4 chronic kidney disease, or unspecified chronic kidney disease; N25.81 Secondary hyperparathyroidism of renal origin; N18.3 Chronic kidney disease, stage 3 (moderate); I50.9 Heart failure, unspecified; I25.110 Atherosclerotic heart disease of native coronary artery with unstable angina pectoris; R57.0 Cardiogenic shock; I35.1 Nonrheumatic aortic (valve) insufficiency; E11.22 Type 2 diabetes mellitus with diabetic chronic kidney disease; E66.9 Obesity, unspecified; E78.00 Pure hypercholesterolemia, unspecified; J45.909 Unspecified asthma, uncomplicated; E78.5 Hyperlipidemia, unspecified; F41.9 Anxiety disorder, unspecified; Z95.2 Presence of prosthetic heart valve; Z68.39 Body mass index [BMI] 39.0-39.9, adult; Z79.84 Long term (current) use of oral hypoglycemic drugs; Z79.01 Long term (current) use of anticoagulants